=== PATIENT | male | born 1945 | race Caucasian/White ===

== ENCOUNTER → 2016-08-18 | Outpatient (CLI) | payer MEDICARE, BC ==
--- NOTE | 2016-08-18 12:27 | PN ---
DATE OF SERVICE: 08/18/2016 A 70-year-old gentleman who has been followed in the [facility] for treatment of obstructive sleep apnea-hypopnea syndrome. Patient is using his equipment every night for the whole night. No symptoms of excessive daytime sleepiness, [place] sleepiness scale is 4. Sometimes he may wake up in the middle of the night and may have difficulties to fall asleep again. I checked his CPAP unit. CPAP pressure is 7 cm of water. Usage is 100% of the time more than 4 hours, average usage is 8.2 hours, leak is 13 L/min, which is in acceptable range. Apnea-hypopnea index is 0.5, which is very good. No problem with the mask. No snoring with the machine. MEDICATIONS: Metoprolol, sotalol, Eliquis, atorvastatin, omeprazole. During physical exam, patient in no distress. BP 119/70, HR 69, RR 14, height 68-1/2 inches. Weight 183.2. BMI 27.4. Temperature 97.8. Oxygen saturation at room air 96%. OROPHARYNX: Low position of soft palate. EXTREMITIES: 1+ bilateral ankle edema. NECK: Supple. No JVD, Thyroid is not palpable. LUNGS: Clear to percussion and to auscultation. Good air exchange. No wheezing or rhonchi. HEART: S1, S2 regular. No murmurs, gallops, or rubs. ABDOMEN: Soft and nontender. Bowel sounds are present. No organomegaly appreciated. PLAN COORDINATOR: Awake, alert, and oriented x3. Cranial nerves 2 to 7 intact. There is no fasciculation or atrophy noted. No focal deficits observed. Weight is about the same range, last year was 181, past 2 days 183 pounds. IMPRESSION: 1. Obstructive sleep apnea-hypopnea syndrome on full control with CPAP at 7 cm of water. Patient demonstrated 100% compliance with treatment, benefiting from treatment. 2. History of paroxysmal atrial fibrillation, last episode 8 months ago. 3. Status post cardiac ablation procedure. 4. Status post permanent pacemaker insertion. 5. Acid reflux. 6. Hypertension. he scored that this will see the. PLAN: 1. Continue treatment with CPAP every night for the whole night. 2. Watching weight. 3. Sleep hygiene with regular time in bed for at least 8 hours. 4. No driving if feeling any sleepiness. 5. Prescription for all necessary CPAP supplies, including mask, tube, and filters. 6. Follow up visit in one year. Thank you very much for allowing me to participate in the management your patient. Sincerely, Alirio Wilson MD, PhD, FAASM Diplomat of [place] [employer], Sleep Medicine Board by [place] [employer] [employer] Registered Dental Assistant of [facility] [place]
== END | disposition home or self-care (01) ==
LOC: SLEEP 10:41
PROVIDERS: ATTEND Internal Medicine
DX: G47.33 Obstructive sleep apnea (adult) (pediatric) (principal); I48.0 Paroxysmal atrial fibrillation; Z95.0 Presence of cardiac pacemaker; K21.9 Gastro-esophageal reflux disease without esophagitis; I10 Essential (primary) hypertension; Z79.899 Other long term (current) drug therapy

== ENCOUNTER → 2016-09-19 | Outpatient (CLI) | payer MEDICARE, BC ==
[2016-09-19 12:53] LABS: CH 30.6; CHCM 35.1; HCT 43.2 % (39.0-53.0); MCH 30.4 pg (25.0-35.0); MCHC 34.7 g/dL (31.0-37.0); MCV 87.6 fL (80.0-100.0); Mean Platelet Volume 7.1; RBC 4.93 m/uL (4.30-5.90); RDW 13.6 % (11.5-15.5); WBC 6.7 k/uL (3.8-10.6)
[2016-09-19 13:03] LABS: AST 25 U/L (17-59); Anion Gap 10 mmol/L; Blood Urea Nitrogen 17 mg/dL (9-20); Calcium 9.7 mg/dL (8.4-10.2); Carbon Dioxide 26 mmol/L (22-30); Chloride 104 mmol/L (98-107); Cholesterol 133 mg/dL (<200); Creatine Kinase 120 U/L (55-170); Glucose 100 mg/dL (74-99); HDL Cholesterol 41 mg/dL (40-60); Non-African American GFR(MDRD) >60 (>60 ml/min/1.73 sqM); Sodium 140 mmol/L (137-145); Triglycerides 194 mg/dL (<150); Uric Acid 6.6 mg/dL (3.5-8.5)
[2016-09-22 17:11] LABS: Bile Acids, Total 6.8 umol/L (< 10.1)
== END ==
LOC: LABWHC1 11:58
DX: I10 Essential (primary) hypertension (principal); E78.4 Other hyperlipidemia; I25.10 Atherosclerotic heart disease of native coronary artery without angina pectoris
CPT/HCPCS: 36415; 80051; 80061; 82239; 82306; 82310; 82550; 82565; 82947; 83090; 83695; 84439; 84443; 84450; 84481; 84520; 84550; 85027; 86141

== ENCOUNTER → 2016-12-14 | Outpatient (CLI) | payer MEDICARE, BC ==
[2016-12-14 08:19] LABS: Blood Urea Nitrogen 18 mg/dL (9-20); Non-African American GFR(MDRD) >60 (>60 ml/min/1.73 sqM)
--- NOTE | 2016-12-14 09:12 | CT ---
EXAMINATION TYPE: CT abdomen pelvis w con DATE OF EXAM: 12/14/2016 COMPARISON: NONE HISTORY: Inguinal hernia CT DLP: 1510 mGycm CONTRAST: CT scan of the abdomen and pelvis is performed with Oral Contrast and with IV Contrast, patient injec jessenia with 100 ml mL of Omnipaque 300. FINDINGS: LUNG BASES-: No visible nodule. No infiltrate. Small fixed hiatal hernia. LIVER/GB: Small gallstones are noted. Lobulated cyst posterior segment right hepatic lobe S2 0.3 cm . Smaller subcentimeter cysts noted scattered throughout the liver. Hemangioma is noted in the left h epatic lobe lateral segment right centimeter mass. Biliary tree is of normal caliber. PANCREAS: No inflammation. No distinct mass. SPLEEN: No splenic enlargement. No lesion seen. ADRENALS: No nodule. No thickening. KIDNEYS/BLADDER: No hydronephrosis. No nephrolithiasis. Large exophytic cyst lower pole right kidn ey was 7.1 cm. Additional smaller cysts bilaterally. Urinary bladder grossly unremarkable. BOWEL: Normal appendix. Normal bowel caliber. No inflammation. Severe sigmoid diverticulosis withou t diverticulitis at this time. GENITAL ORGANS: No gross abnormality. LYMPH NODES: No greater than 1cm abdominal or pelvic lymph nodes are appreciated. AORTA: No significant abnormality. OSSEOUS STRUCTURES: Severe degenerative changes of the lumbar spine. OTHER: Small fat-containing inguinal hernias left greater than right. IMPRESSION: 1. Small fat-containing inguinal hernias left greater than right. 2. Renal and hepatic cysts. Hepatic hemangioma. 3. Small gallstones. 4. Small sliding-type hiatal hernia. 5. Severe sigmoid diverticulosis without diverticulitis.
== END | disposition home or self-care (01) ==
LOC: RADCTMAIN 07:19
PROVIDERS: ATTEND Surgery
DX: K40.90 Unilateral inguinal hernia, without obstruction or gangrene, not specified as recurrent (principal); N28.1 Cyst of kidney, acquired; K76.89 Other specified diseases of liver; K80.20 Calculus of gallbladder without cholecystitis without obstruction; D18.03 Hemangioma of intra-abdominal structures; K44.9 Diaphragmatic hernia without obstruction or gangrene; K57.30 Diverticulosis of large intestine without perforation or abscess without bleeding
CPT/HCPCS: 82565; 84520; 74177; 36415; Q9967

== ENCOUNTER → 2016-12-26 | Outpatient (CLI) | payer MEDICARE, BC ==
[2016-12-26 13:01] LABS: CH 30.6; CHCM 34.9; HCT 44.2 % (39.0-53.0); HDW 2.94; HGB 15.4 gm/dL (13.0-17.5); MCH 30.7 pg (25.0-35.0); MCHC 34.9 g/dL (31.0-37.0); Mean Platelet Volume 7.4; RBC 5.02 m/uL (4.30-5.90); RDW 13.6 % (11.5-15.5); WBC 6.8 k/uL (3.8-10.6)
[2016-12-26 13:05] LABS: AST 23 U/L (17-59); Anion Gap 12 mmol/L; Blood Urea Nitrogen 16 mg/dL (9-20); Carbon Dioxide 28 mmol/L (22-30); Chloride 103 mmol/L (98-107); Cholesterol 124 mg/dL (<200); Creatine Kinase 162 U/L (55-170); Glucose 98 mg/dL (74-99); HDL Cholesterol 38 mg/dL (40-60); Magnesium 1.4 mg/dL (1.6-2.3); Non-African American GFR(MDRD) >60 (>60 ml/min/1.73 sqM); Potassium 3.7 mmol/L (3.5-5.1); Sodium 143 mmol/L (137-145); Triglycerides 137 mg/dL (<150); Uric Acid 6.4 mg/dL (3.5-8.5)
[2016-12-26 22:17] LABS: Hemoglobin A1C 5.3 % (4.2-6.1)
[2016-12-27 09:17] LABS: Lipoprotein A 43 mg/dL (0-30)
== END | disposition home or self-care (01) ==
LOC: LABWHC1 11:49
DX: D64.9 Anemia, unspecified (principal); I25.10 Atherosclerotic heart disease of native coronary artery without angina pectoris; E11.9 Type 2 diabetes mellitus without complications; E78.2 Mixed hyperlipidemia; E05.90 Thyrotoxicosis, unspecified without thyrotoxic crisis or storm; E55.9 Vitamin D deficiency, unspecified
CPT/HCPCS: 36415; 80051; 80061; 82239; 82306; 82550; 82565; 82947; 83036; 83090; 83695; 83735; 83880; 84439; 84443; 84450; 84481; 84520; 84550; 85027; 86141

== ENCOUNTER → 2017-04-11 | Outpatient (CLI) | payer MEDICARE, BC ==
[2017-04-11 12:36] LABS: CH 29.9; CHCM 33.8; HCT 42.6 % (39.0-53.0); HDW 2.89; HGB 14.2 gm/dL (13.0-17.5); MCH 29.7 pg (25.0-35.0); MCHC 33.4 g/dL (31.0-37.0); Mean Platelet Volume 7.1; RBC 4.79 m/uL (4.30-5.90); RDW 13.8 % (11.5-15.5); WBC 6.8 k/uL (3.8-10.6)
[2017-04-11 13:10] LABS: AST 27 U/L (17-59); Anion Gap 9 mmol/L; Blood Urea Nitrogen 20 mg/dL (9-20); Carbon Dioxide 28 mmol/L (22-30); Chloride 102 mmol/L (98-107); Cholesterol 147 mg/dL (<200); Glucose 96 mg/dL (74-99); HDL Cholesterol 40 mg/dL (40-60); Magnesium 1.8 mg/dL (1.6-2.3); Non-African American GFR(MDRD) >60 (>60 ml/min/1.73 sqM); Potassium 4.3 mmol/L (3.5-5.1); Sodium 139 mmol/L (137-145); Uric Acid 6.7 mg/dL (3.5-8.5)
[2017-04-11 14:20] LABS: Hemoglobin A1C 5.5 % (4.2-6.1)
[2017-04-15 16:35] LABS: Bile Acids, Total 9.5 umol/L (< 10.1)
== END | disposition home or self-care (01) ==
LOC: LABWHC1 12:06
DX: D64.9 Anemia, unspecified (principal); E78.2 Mixed hyperlipidemia; E55.9 Vitamin D deficiency, unspecified; E11.9 Type 2 diabetes mellitus without complications; I10 Essential (primary) hypertension; I25.10 Atherosclerotic heart disease of native coronary artery without angina pectoris
CPT/HCPCS: 36415; 80051; 80061; 82239; 82306; 82565; 82947; 83036; 83090; 83695; 83735; 84439; 84443; 84450; 84481; 84520; 84550; 85027; 86141

== ENCOUNTER → 2017-08-15 | Outpatient (CLI) | payer MEDICARE, BC ==
[2017-08-15 11:39] LABS: HCT 45.4 % (39.0-53.0); HGB 15.1 gm/dL (13.0-17.5); MCHC 33.3 g/dL (31.0-37.0); MCV 87.3 fL (80.0-100.0); Mean Platelet Volume 6.9; Platelet Count 179 k/uL (150-450); RDW 13.7 % (11.5-15.5); WBC 7.1 k/uL (3.8-10.6)
[2017-08-15 11:43] LABS: AST 23 U/L (17-59); Anion Gap 9 mmol/L; Blood Urea Nitrogen 15 mg/dL (9-20); Carbon Dioxide 31 mmol/L (22-30); Chloride 102 mmol/L (98-107); Cholesterol 154 mg/dL (<200); Creatine Kinase 62 U/L (55-170); Glucose 105 mg/dL (74-99); HDL Cholesterol 40 mg/dL (40-60); Potassium 4.1 mmol/L (3.5-5.1); Sodium 142 mmol/L (137-145); Triglycerides 281 mg/dL (<150); Uric Acid 6.3 mg/dL (3.5-8.5)
[2017-08-15 11:58] LABS: T4, Free (Free Thyroxine) 0.84 ng/dL (0.78-2.19)
[2017-08-15 16:57] LABS: C Reactive Protein, High Sens 3.52 mg/L (0.000-3.000)
[2017-08-15 19:12] LABS: Hemoglobin A1C 5.6 % (4.0-6.0)
[2017-08-18 05:53] LABS: Lipoprotein A 31 mg/dL (0-30)
== END | disposition home or self-care (01) ==
LOC: LABWHC1 10:40
DX: E03.9 Hypothyroidism, unspecified (principal); E55.9 Vitamin D deficiency, unspecified; I10 Essential (primary) hypertension; E78.5 Hyperlipidemia, unspecified; E11.9 Type 2 diabetes mellitus without complications; D64.9 Anemia, unspecified; I48.91 Unspecified atrial fibrillation; I25.10 Atherosclerotic heart disease of native coronary artery without angina pectoris
CPT/HCPCS: 36415; 80051; 82239; 82306; 82465; 82550; 82565; 82947; 83036; 83090; 83695; 83718; 83721; 83735; 83880; 84439; 84443; 84450; 84478; 84481; 84520; 84550; 85027; 86141

== ENCOUNTER → 2017-11-22 | Outpatient (CLI) | payer MEDICARE, BC ==
[2017-11-22 10:12] LABS: Basophils # (A) 0.1 k/uL (0-0.2); Basophils % (A) 1 %; Eosinophils # (A) 0.1 k/uL (0-0.7); Eosinophils % (A) 2 %; HCT 46.5 % (39.0-53.0); HGB 15.6 gm/dL (13.0-17.5); Lymphocytes # (A) 1.8 k/uL (1.0-4.8); Lymphocytes % (A) 32 %; MCH 29.1 pg (25.0-35.0); MCHC 33.6 g/dL (31.0-37.0); MCV 86.6 fL (80.0-100.0); Mean Platelet Volume 7.3; Monocytes # (A) 0.5 k/uL (0-1.0); Monocytes % (A) 8 %; Neutrophils # (A) 3.2 k/uL (1.3-7.7); Neutrophils % (A) 55 %; Platelet Count 178 k/uL (150-450); RBC 5.37 m/uL (4.30-5.90); RDW 13.9 % (11.5-15.5); WBC 5.7 k/uL (3.8-10.6)
[2017-11-22 12:22] LABS: AST 37 U/L (17-59); Anion Gap 14 mmol/L; Blood Urea Nitrogen 18 mg/dL (9-20); Carbon Dioxide 27 mmol/L (22-30); Chloride 103 mmol/L (98-107); Cholesterol 131 mg/dL (<200); Creatine Kinase 131 U/L (55-170); Glucose 115 mg/dL (74-99); HDL Cholesterol 34 mg/dL (40-60); LDL Cholesterol,Calculated 55 mg/dL (0-99); Magnesium 1.9 mg/dL (1.6-2.3); Potassium 4.1 mmol/L (3.5-5.1); Sodium 144 mmol/L (137-145); Triglycerides 208 mg/dL (<150); Uric Acid 6.2 mg/dL (3.5-8.5)
[2017-11-22 12:36] LABS: T4, Free (Free Thyroxine) 1.01 ng/dL (0.78-2.19)
[2017-11-22 16:01] LABS: C Reactive Protein, High Sens 9.53 mg/L (0.000-3.000)
[2017-11-22 16:10] LABS: Vitamin D 25 Hydroxy 33.4 ng/mL (30.0-100.0)
[2017-11-22 17:32] LABS: Hemoglobin A1C 5.7 % (4.0-6.0)
[2017-11-24 05:15] LABS: Lipoprotein A 27 mg/dL (0-30)
== END | disposition home or self-care (01) ==
LOC: LABWHC1 09:37
DX: E55.9 Vitamin D deficiency, unspecified (principal); E03.9 Hypothyroidism, unspecified; I10 Essential (primary) hypertension; E78.2 Mixed hyperlipidemia; J44.9 Chronic obstructive pulmonary disease, unspecified; E11.9 Type 2 diabetes mellitus without complications; D64.9 Anemia, unspecified; I25.10 Atherosclerotic heart disease of native coronary artery without angina pectoris
CPT/HCPCS: 36415; 80051; 80061; 82239; 82306; 82550; 82565; 82947; 83036; 83090; 83695; 83735; 84439; 84443; 84450; 84481; 84520; 84550; 85025; 86141

== ENCOUNTER → 2017-12-14 | Outpatient (CLI) | payer MEDICARE, BC ==
--- NOTE | 2017-12-14 16:04 | PN ---
PROGRESS NOTE DATE OF SERVICE: 12/14/2017 A 72-year-old gentleman has been followed in [facility] for treatment of obstructive sleep apnea-hypopnea syndrome. The patient successfully continued to use his equipment every night for the whole night without any significant problems. [place] Sleepiness Scale today is 2. I checked his CPAP unit. CPAP pressure is 7 cm of water. Usage is 100% of the nights more than 4 hours. Average usage is 8.5 hours. Leak is 11 L/minute which is in normal range. Apnea-hypopnea index is only 0.9, which is perfect. No snoring with the machine. MEDICATIONS: Atorvastatin, losartan, hydrochlorothiazide, omeprazole, metoprolol, sotalol, Eliquis, Nitrostat, vitamin D3, magnesium supplement, some laxative. PHYSICAL EXAM: Patient in no distress. BP 95/60, HR 84, RR 16, height 5 feet 8 inches and 1 quarter, weight 179.8, BMI 27.0, temperature 97.6, oxygen saturation room air 94%. Oropharynx moderately low position of soft palate. Neck Supple, no JVD. Thyroid is not palpable. LUNGS Clear to percussion and to auscultation. Good air exchange. No wheezing or rhonchi. HEART S1, S2 regular. No murmurs, gallops, or rubs. ABDOMEN: Obese. Soft and nontender. Bowel sounds are present. No organomegaly appreciated. EXTREMITIES No clubbing or cyanosis. PEDIATRIC HOSPITALIST Awake, alert, and oriented X3. Cranial nerves 2 to 7 intact. There is no fasciculation or atrophy. noted. No focal deficits observed. IMPRESSION: 1. Obstructive sleep apnea-hypopnea syndrome, on full control with CPAP at 7 cm of water. Patient demonstrated 100% compliance with treatment benefitting from treatment. 2. Status post cardiac ablation procedure. 3. Acid reflux. 4. Status post permanent pacemaker insertion. 5. History of hypertension. 6. Coronary artery disease, status post 4 stents insertion. PLAN: 1. Continue treatment with CPAP every night for the whole night. 2. Prescription for all necessary CPAP supplies including mask, tube, filters. 3. Watching and losing weight. 4. Sleep hygiene with regular time in bed for at least 8 hours. 5. No driving if feeling sleepiness. 6. Prescription for all necessary CPAP supplies. 7. Followup visit in 1 year or earlier if patient has any problems. Thank you very much for allowing me to participate in management of your patient. Sincerely, Alirio Wilson MD, PhD, FAASM Diplomat of [place] [employer] [place] [employer] Lead Teacher of [facility] [place] JAYANT / ISAIAS: [id number] /
== END | disposition home or self-care (01) ==
LOC: SLEEP 13:30
PROVIDERS: ATTEND Internal Medicine
DX: G47.33 Obstructive sleep apnea (adult) (pediatric) (principal); K21.9 Gastro-esophageal reflux disease without esophagitis; Z95.0 Presence of cardiac pacemaker; Z95.5 Presence of coronary angioplasty implant and graft; Z98.890 Other specified postprocedural states; Z79.01 Long term (current) use of anticoagulants; Z79.899 Other long term (current) drug therapy

== ENCOUNTER → 2018-02-20 | Outpatient (CLI) | payer MEDICARE, BC ==
[2018-02-20 12:29] LABS: HCT 43.9 % (39.0-53.0); HGB 14.5 gm/dL (13.0-17.5); MCH 29.1 pg (25.0-35.0); Mean Platelet Volume 6.8; Platelet Count 192 k/uL (150-450); RBC 4.99 m/uL (4.30-5.90); RDW 13.9 % (11.5-15.5); WBC 6.5 k/uL (3.8-10.6)
[2018-02-20 12:36] LABS: AST 26 U/L (17-59); Anion Gap 6 mmol/L; Blood Urea Nitrogen 17 mg/dL (9-20); Carbon Dioxide 29 mmol/L (22-30); Chloride 104 mmol/L (98-107); Cholesterol 143 mg/dL (<200); Creatine Kinase 58 U/L (55-170); HDL Cholesterol 38 mg/dL (40-60); Magnesium 1.8 mg/dL (1.6-2.3); Sodium 139 mmol/L (137-145); Triglycerides 226 mg/dL (<150); Uric Acid 6.1 mg/dL (3.5-8.5)
[2018-02-20 12:52] LABS: T4, Free (Free Thyroxine) 0.87 ng/dL (0.78-2.19)
[2018-02-20 20:53] LABS: LDL Cholesterol, Direct 72.2 mg/dL (0.0-129.0)
[2018-02-20 20:58] LABS: Vitamin D 25 Hydroxy 35.6 ng/mL (30.0-100.0)
[2018-02-20 21:35] LABS: Hepatitis C IgG Antibody Non-Reactive (Non-Reactive)
== END | disposition home or self-care (01) ==
LOC: LABWHC1 11:23
DX: E78.2 Mixed hyperlipidemia (principal); E55.9 Vitamin D deficiency, unspecified; E03.9 Hypothyroidism, unspecified; D64.9 Anemia, unspecified; I25.10 Atherosclerotic heart disease of native coronary artery without angina pectoris; I48.91 Unspecified atrial fibrillation; I10 Essential (primary) hypertension
CPT/HCPCS: 36415; 80051; 80061; 82239; 82306; 82465; 82550; 82565; 83090; 83695; 83718; 83721; 83735; 84439; 84443; 84450; 84478; 84481; 84520; 84550; 85027; 86141; 86803

== ENCOUNTER → 2018-05-21 | Outpatient (CLI) | payer MEDICARE, BC ==
[2018-05-21 12:46] LABS: HCT 43.2 % (39.0-53.0); HGB 14.8 gm/dL (13.0-17.5); MCH 29.6 pg (25.0-35.0); MCHC 34.2 g/dL (31.0-37.0); MCV 86.7 fL (80.0-100.0); Mean Platelet Volume 7.3; Platelet Count 196 k/uL (150-450); RBC 4.99 m/uL (4.30-5.90); RDW 14.1 % (11.5-15.5); WBC 6.5 k/uL (3.8-10.6)
[2018-05-21 19:11] LABS: Anion Gap 6.5 mmol/L (4.00-12.00); Carbon Dioxide 30.5 mmol/L (21.6-31.8); Magnesium 1.8 mg/dL (1.5-2.4); Potassium 4.1 mmol/L (3.5-5.5); Uric Acid 7.3 mg/dL (3.7-8.7)
[2018-05-21 19:15] LABS: LDL Cholesterol, Direct 68.9 mg/dL (0.0-129.0)
[2018-05-21 19:19] LABS: T4, Free (Free Thyroxine) 1.1 ng/dL (0.80-1.80)
[2018-05-21 19:22] LABS: Vitamin D 25 Hydroxy 32.7 ng/mL (30.0-100.0)
[2018-05-21 20:47] LABS: Hepatitis C IgG Antibody Non-Reactive (Non-Reactive)
[2018-05-21 22:53] LABS: Hemoglobin A1C 5.5 % (4.0-6.0)
[2018-05-22 05:23] LABS: Lipoprotein A 36 mg/dL (0-30)
== END ==
LOC: LABWHC1 11:15
DX: E55.9 Vitamin D deficiency, unspecified (principal); E03.9 Hypothyroidism, unspecified; E78.2 Mixed hyperlipidemia; E11.9 Type 2 diabetes mellitus without complications; J44.9 Chronic obstructive pulmonary disease, unspecified; I25.10 Atherosclerotic heart disease of native coronary artery without angina pectoris; D64.9 Anemia, unspecified
CPT/HCPCS: 36415; 80051; 82239; 82306; 82465; 82550; 82565; 82947; 83036; 83090; 83695; 83718; 83721; 83735; 84439; 84443; 84450; 84478; 84481; 84520; 84550; 85027; 86141; 86803

== ENCOUNTER → 2018-09-25 | Outpatient (CLI) | payer MEDICARE, BC ==
[2018-09-25 18:51] LABS: Anion Gap 4.6 mmol/L (4.00-12.00); Carbon Dioxide 31.4 mmol/L (21.6-31.8); LDL Cholesterol,Calculated 66.4 mg/dL (0.0-131.0); Magnesium 1.9 mg/dL (1.5-2.4); Potassium 4.4 mmol/L (3.5-5.5); Uric Acid 5.7 mg/dL (3.7-8.7); VLDL Calculation 28.6 mg/dL (5.00-40.00)
[2018-09-25 19:28] LABS: Hepatitis C IgG Antibody Non-Reactive (Non-Reactive)
[2018-09-25 19:30] LABS: Folate, Serum 18.6 ng/mL
[2018-09-25 20:21] LABS: Vitamin D 25 Hydroxy 45.4 ng/mL (30.0-100.0)
[2018-09-25 21:42] LABS: Hemoglobin A1C 5.8 % (4.0-6.0)
== END | disposition home or self-care (01) ==
LOC: LABWHC1 11:10
DX: E78.2 Mixed hyperlipidemia (principal); E03.9 Hypothyroidism, unspecified; I10 Essential (primary) hypertension; E55.9 Vitamin D deficiency, unspecified; E11.9 Type 2 diabetes mellitus without complications; I25.10 Atherosclerotic heart disease of native coronary artery without angina pectoris; D64.9 Anemia, unspecified
CPT/HCPCS: 36415; 80051; 80061; 82239; 82306; 82550; 82565; 82610; 82746; 82947; 83036; 83090; 83695; 83735; 83880; 84439; 84443; 84450; 84481; 84520; 84550; 86141; 86803

== ENCOUNTER → 2019-01-02 | Outpatient (CLI) | payer MEDICARE, BC ==
--- NOTE | 2019-01-02 15:52 | PN ---
PROGRESS NOTE DATE OF SERVICE: 01/02/2019 This patient is a 73-year-old gentleman who has been followed in [facility] Center for treatment of obstructive sleep apnea-hypopnea syndrome. The patient successfully continues to use his CPAP equipment every night for the whole night without significant problems related to mask fitting, pressure or humidification. [place] Sleepiness Scale is 3 today. I checked his CPAP unit. Usage has been every night, 30/30 nights, for more than 4 hours. Average usage is 9 hours. Pressure is 7 cm of water. Leak is 5 L/minute, which is not significant. Apnea-hypopnea index is 2.4, which is totally normal. MEDICATIONS: 1. Losartan. 2. Atorvastatin. 3. Omeprazole. 4. Hydrochlorothiazide. 5. Metoprolol. 6. Sotalol. 7. Eliquis. 8. Nitrostat. 9. Vitamin D3. 10.Magnesium supplement. 11.Laxatives. PHYSICAL EXAMINATION: GENERAL: A pleasant gentleman without distress. VITAL SIGNS: BP 142/81, HR 78, RR 18, height 5 feet 8-1/4 inches, weight 181.6 pounds, which is about the same as last year. Body mass index 26.7, temperature 97.8, oxygen saturation at room air 96%. HEENT: PERRLA, EOMI. Evaluation of oropharynx showed tongue protrudes midline. Low position of soft palate. Mallampati III. NECK: Supple. No JVD. Thyroid is not palpable. LUNGS: Clear to percussion and to auscultation. Good air exchange. No wheezing or rhonchi. HEART: S1, S2 regular. No murmurs, gallops or rubs. ABDOMEN: Slightly obese. EXTREMITIES: No clubbing or cyanosis. NEONATAL DOCTOR: Awake, alert, and oriented X3. Cranial nerves 2 to 7 intact. There is no fasciculation or atrophy. noted. No focal deficits observed. IMPRESSION: 1. Obstructive sleep apnea-hypopnea syndrome. Patient demonstrated great compliance with treatment, benefitting from treatment. 2. Status post cardiac ablation procedure for history of atrial fibrillation in the past. 3. Acid reflux. 4. Status post permanent pacemaker insertion. 5. History of hypertension. 6. Coronary artery disease, status post 4 stent insertions. PLAN: 1. Patient will continue to use CPAP equipment every night. 2. Losing weight. 3. Sleep hygiene with regular time in bed for at least 8 hours. 4. Prescription for all necessary CPAP supplies, including mask, tube, filters. 5. No driving if feeling any sleepiness. 6. Follow-up visit in one year, or earlier if the patient has any problems. Thank you very much for allowing me to participate in the management of your patient. Sincerely, Alirio Wilson MD, PhD, FAASM Diplomat of [place] [employer] [place] [employer] Fisher Oyster of [facility] [place] MMODL / IJN: [id number] /
== END | disposition home or self-care (01) ==
LOC: SLEEP 13:26
PROVIDERS: ATTEND Internal Medicine
DX: G47.33 Obstructive sleep apnea (adult) (pediatric) (principal); K21.9 Gastro-esophageal reflux disease without esophagitis; I25.10 Atherosclerotic heart disease of native coronary artery without angina pectoris; I10 Essential (primary) hypertension; Z86.79 Personal history of other diseases of the circulatory system; Z95.0 Presence of cardiac pacemaker; Z95.5 Presence of coronary angioplasty implant and graft; Z98.890 Other specified postprocedural states; Z79.01 Long term (current) use of anticoagulants; Z79.899 Other long term (current) drug therapy

== ENCOUNTER → 2019-01-17 | Outpatient (CLI) | payer MEDICARE, BC ==
[2019-01-17 14:46] LABS: HCT 43.8 % (39.0-53.0); HGB 14.6 gm/dL (13.0-17.5); MCH 28.5 pg (25.0-35.0); MCHC 33.3 g/dL (31.0-37.0); MCV 85.6 fL (80.0-100.0); Mean Platelet Volume 7.2; Platelet Count 188 k/uL (150-450); RBC 5.12 m/uL (4.30-5.90); RDW 14.7 % (11.5-15.5); WBC 9.8 k/uL (3.8-10.6)
[2019-01-17 18:25] LABS: Urine Creatinine 148.4 mg/dL
[2019-01-17 19:20] LABS: Vitamin D 25 Hydroxy 55.9 ng/mL (30.0-100.0)
[2019-01-17 19:24] LABS: Magnesium 1.7 mg/dL (1.5-2.4); Potassium 3.9 mmol/L (3.5-5.5); Uric Acid 6.6 mg/dL (3.7-8.7)
[2019-01-17 19:32] LABS: C Reactive Protein, High Sens 7.36 mg/L (0.000-3.000)
[2019-01-17 19:47] LABS: T4, Free (Free Thyroxine) 0.9 ng/dL (0.80-1.80)
[2019-01-17 21:26] LABS: Hemoglobin A1C 5.8 % (4.0-6.0)
== END | disposition home or self-care (01) ==
LOC: LABWHC1 14:04
DX: I25.10 Atherosclerotic heart disease of native coronary artery without angina pectoris (principal); E11.9 Type 2 diabetes mellitus without complications; Z85.46 Personal history of malignant neoplasm of prostate; E55.9 Vitamin D deficiency, unspecified; I10 Essential (primary) hypertension; E78.49 Other hyperlipidemia
CPT/HCPCS: 36415; 80051; 82043; 82239; 82306; 82465; 82550; 82565; 82570; 82947; 83036; 83090; 83690; 83718; 83721; 83735; 84153; 84439; 84443; 84478; 84481; 84520; 84550; 85027; 86141

== ENCOUNTER → 2019-05-13 | Outpatient (CLI) | payer MEDICARE, BC ==
[2019-05-13 14:18] LABS: HCT 43.7 % (39.0-53.0); MCH 29.9 pg (25.0-35.0); MCHC 34.2 g/dL (31.0-37.0); MCV 87.5 fL (80.0-100.0); Mean Platelet Volume 6.3; Platelet Count 192 k/uL (150-450); RDW 13.5 % (11.5-15.5); WBC 6.2 k/uL (3.8-10.6)
[2019-05-13 18:53] LABS: Anion Gap 6.9 mmol/L (4.00-12.00); C Reactive Protein, High Sens 2.24 mg/L (0.000-3.000); Carbon Dioxide 30.1 mmol/L (21.6-31.8); Chol/HDL Ratio 3.68; LDL Cholesterol,Calculated 60.2 mg/dL (0.0-131.0); Magnesium 1.8 mg/dL (1.5-2.4); Potassium 4.3 mmol/L (3.5-5.5); Uric Acid 6.1 mg/dL (3.7-8.7); VLDL Calculation 30.8 mg/dL (5.00-40.00)
[2019-05-13 19:11] LABS: T4, Free (Free Thyroxine) 0.8 ng/dL (0.80-1.80)
[2019-05-13 19:24] LABS: Hemoglobin A1C 5.6 % (4.0-6.0)
[2019-05-14 15:15] LABS: Lipoprotein A 35 mg/dL (0-30)
== END | disposition home or self-care (01) ==
LOC: LABWHC1 12:34
DX: I25.10 Atherosclerotic heart disease of native coronary artery without angina pectoris (principal); D64.9 Anemia, unspecified; I48.91 Unspecified atrial fibrillation; E11.9 Type 2 diabetes mellitus without complications; E78.2 Mixed hyperlipidemia; I10 Essential (primary) hypertension; E03.9 Hypothyroidism, unspecified; E55.9 Vitamin D deficiency, unspecified
CPT/HCPCS: 36415; 80051; 80061; 82239; 82550; 82565; 82947; 83036; 83090; 83695; 83735; 84439; 84443; 84450; 84481; 84520; 84550; 85027; 86141

== ENCOUNTER → 2020-01-20 | Outpatient (CLI) | payer MEDICARE, BC ==
[2020-01-20 13:58] LABS: Appearance,Urine Clear (Clear); Bilirubin,Urine Negative (Negative); Blood,Urine Negative (Negative); Color,Urine Yellow; Glucose,Urine (UA) Negative (Negative); Ketones,Urine Negative (Negative); Leukocyte Esterase,Urine Negative (Negative); Nitrite,Urine Negative (Negative); PH, Urine 7.5 (5.0-8.0); Protein,Urine Trace (Negative); Specific Gravity,Urine 1.022 (1.001-1.035); Urobilinogen,Urine <2.0 mg/dL (<2.0)
[2020-01-20 14:01] LABS: Basophils # (A) 0.1 k/uL (0-0.2); Basophils % (A) 1 %; Eosinophils # (A) 0.1 k/uL (0-0.7); Eosinophils % (A) 2 %; HCT 44.4 % (39.0-53.0); HGB 14.5 gm/dL (13.0-17.5); Lymphocytes # (A) 2.3 k/uL (1.0-4.8); Lymphocytes % (A) 30 %; MCH 28.2 pg (25.0-35.0); MCHC 32.7 g/dL (31.0-37.0); MCV 86.5 fL (80.0-100.0); Mean Platelet Volume 7.5; Monocytes # (A) 0.6 k/uL (0-1.0); Monocytes % (A) 8 %; Neutrophils # (A) 4.4 k/uL (1.3-7.7); Neutrophils % (A) 57 %; Platelet Count 200 k/uL (150-450); RBC 5.13 m/uL (4.30-5.90); RDW 14.4 % (11.5-15.5); WBC 7.6 k/uL (3.8-10.6)
[2020-01-20 20:31] LABS: African American GFR (CKD) 96.5 (60.0-200.0); LDL Cholesterol,Calculated 60.2 mg/dL (0.0-131.0); Magnesium 1.8 mg/dL (1.5-2.4); Non-African American GFR(CKD) 83.3 (60.0-200.0); Uric Acid 6.6 mg/dL (3.7-8.7); VLDL Calculation 38.8 mg/dL (5.00-40.00)
[2020-01-21 10:38] LABS: Lipoprotein A 31 mg/dL (0-30)
== END | disposition home or self-care (01) ==
LOC: LABWHC1 13:15
DX: I25.10 Atherosclerotic heart disease of native coronary artery without angina pectoris (principal); E03.9 Hypothyroidism, unspecified; E55.9 Vitamin D deficiency, unspecified; I10 Essential (primary) hypertension; E78.2 Mixed hyperlipidemia; E11.9 Type 2 diabetes mellitus without complications; I48.91 Unspecified atrial fibrillation
CPT/HCPCS: 36415; 80061; 81003; 82043; 82239; 82306; 82550; 82565; 82570; 82947; 83090; 83695; 83735; 83880; 84439; 84443; 84460; 84480; 84520; 84550; 85025

== ENCOUNTER 2020-03-28 12:24 | Emergency (ER) | payer MEDICARE, BC ==
[2020-03-28 12:29] VITALS: RESP 16
[2020-03-28] MEDS ORDERED: ONDANSETRON 4 MG/2 ML VIAL IVP STA (12:59)
[2020-03-28] MEDS ORDERED: SODIUM CHLORIDE 0.9% 1,000 ML IV STA (12:59)
[2020-03-28] MEDS ORDERED: DIAZEPAM 5 MG/ML 2 ML INJ IVP STA (12:59)
--- NOTE | 2020-03-28 12:59 | ED ---
Dizziness HPI - General Chief Complaint: Dizziness Stated Complaint: nausea/dizziness Time Seen by Provider: 03/28/20 12:30 Source: patient Mode of arrival: wheelchair Limitations: no limitations - History of Present Illness Initial Comments: The patient is a 74-year-old male with past medical history of hypertension, hyperlipidemia and pacemaker who presents emergency room with complaint of dizziness and nausea. is at bedside and provides a history. States that he left the house approximately an hour and a half ago to work on clinical campaigning. States that he began having sudden onset that the room was spinning on him. Patient describes that he felt like he was on the propeller of an airplane. Reports that the symptoms were made worse any time he moved his head. He began having violent vomiting. No history of similar in the past. Patient did have multiple episodes of nonbilious emesis. Patient denies any chest pain or shortness of breath. No headaches. Denies any recent head trauma. Patient does take Eliquis. Denies any unilateral numbness or weakness. No other alleviating, precipitating or modifying factors - Related Data Home Medications Medication Instructions Recorded Confirmed Apixaban [Eliquis] 5 mg PO BID 03/23/16 03/24/16 Atorvastatin [Lipitor] 20 mg PO HS 03/23/16 03/24/16 Cholecalciferol [Vitamin D3] 2,000 unit PO DAILY 03/23/16 03/24/16 Fiber-Lax 625 mg PO BID 03/23/16 03/24/16 Losartan/Hydrochlorothiazide 1 each PO DAILY 03/23/16 03/24/16 [Losartan-Hctz 100-25 mg Tab] Metoprolol Succinate [Toprol XL] 100 mg PO DAILY 03/23/16 03/24/16 Nitroglycerin Sl Tabs [Nitrostat] 0.4 mg SUBLINGUAL Q5M PRN 03/23/16 03/24/16 Omeprazole [PriLOSEC] 20 mg PO AC-BID 03/23/16 03/24/16 Sotalol HCl [Betapace] 80 mg PO BID 03/23/16 03/24/16 Previous Rx's Medication Instructions Recorded HYDROcodone/APAP 5-325MG [Toney 1 tab PO Q4HR PRN #35 tab 03/24/16 5-325] Magnesium Hydroxide [Milk of 400 mg PO Q24H PRN #100 ml 03/24/16 Magnesia] Allergies Allergy/AdvReac Type Severity Reaction Status Date / Time No Known Allergies Allergy Verified 03/28/20 12:29 Review of Systems ROS Statement: Those systems with pertinent positive or pertinent negative responses have been documented in the HPI. ROS Other: All systems not noted in ROS Statement are negative. 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, and pre cancerous skin lesions History of Any Multi-Drug Resistant Organisms: None Reported Past Surgical History: Ablation, Heart Catheterization With Stent, Hernia Repair, Pacemaker Additional Past Surgical History / Comment(s): inguinal hernia Past Anesthesia/Blood Transfusion Reactions: No Reported Reaction Date of Last Stent Placement:: 2013 Type of Cardiac Device: Permanent Pacemaker Device Placement Date:: 2013 Past Psychological History: No Psychological Hx Reported Smoking Status: Never smoker Past Alcohol Use History: None Reported Past Drug Use History: None Reported - Past Family History Mother Family Medical History: Cancer Additional Family Medical History / Comment(s): breast and skin Sister(s) Family Medical History: Cancer Additional Family Medical History / Comment(s): breast Father Family Medical History: Cancer Additional Family Medical History / Comment(s): throat General Exam Limitations: no limitations Course Vital Signs 03/28/20 03/28/20 03/28/20 12:27 14:05 16:36 Temperature 98.0 F 98.1 F Pulse Rate 63 59 L 63 Respiratory 16 16 16 Rate Blood Pressure 138/82 119/65 149/79 O2 Sat by Pulse 96 98 98 Oximetry - Reevaluation(s) Reevaluation #1: 03/28/20 15:28 Reevaluation demonstrates that the patient's dizziness is almost entirely resolved EKG Findings - EKG Comments: EKG Findings:: EKG demonstrates atrial paced rhythm with a rate of 69. DC interval 198. QRS 82. QTC 462. Pacemaker captures properly. No acute ST segment elevation. Medical Decision Making - Medical Decision Making Upon arrival the patient is placed into room 7. A thorough history and physical exam was performed. Patient is violently retching in the exam room. Because of this we did place a IV the patient was given 5 mg of Valium as well as 4 mg of Zofran. A 12-lead EKG was performed. Laboratory says were conducted. She went for a CT of his brain. Laboratory studies are unremarkable. CT of the patient's brain demonstrates no acute intracranial abdomen only. CT angiography does demonstrate some carotid disease with 75% on the right and 60% on the left. The patient is reevaluated continues to have some nausea therefore he is given 10 mg of Reglan. I discussed diagnosis, differential and treatment options. After the Reglan and menstruation the patient does feel markedly improved. He is able to get up and ambulate without ataxia. I did discuss the diagnosis, differential treatment options. Patient feels comfortable going home at this time. I recommended that he follow-up with his primary care doctor in regards to his symptoms. He'll be given a prescription for Zofran at home. I also recommended taking meclizine for which the patient's daughter states she does have this medication at home. The patient has any new or worsening symptoms or reoccurrence of his symptoms he is to return to the emergency department. Patient was discharged home ambulatory in stable condition - Lab Data Result diagrams: 03/28/20 13:14 03/28/20 13:14 Lab Results 03/28/20 03/28/20 03/28/20 Range/Units 13:14 13:14 13:14 WBC 7.1 (3.8-10.6) k/uL RBC 4.96 (4.30-5.90) m/uL Hgb 15.0 (13.0-17.5) gm/dL Hct 43.3 (39.0-53.0) % MCV 87.2 (80.0-100.0) fL MCH 30.2 (25.0-35.0) pg MCHC 34.6 (31.0-37.0) g/dL RDW 14.4 (11.5-15.5) % Plt Count 218 (150-450) k/uL Neutrophils % 57 % Lymphocytes % 32 % Monocytes % 7 % Eosinophils % 2 % Basophils % 1 % Neutrophils # 4.0 (1.3-7.7) k/uL Lymphocytes # 2.2 (1.0-4.8) k/uL Monocytes # 0.5 (0-1.0) k/uL Eosinophils # 0.1 (0-0.7) k/uL Basophils # 0.1 (0-0.2) k/uL PT 11.1 (9.0-12.0) sec INR 1.1 (<1.2) Sodium 137 (137-145) mmol/L Potassium 3.7 (3.5-5.1) mmol/L Chloride 102 (98-107) mmol/L Carbon Dioxide 26 (22-30) mmol/L Anion Gap 9 mmol/L BUN 16 (9-20) mg/dL Creatinine 0.90 (0.66-1.25) mg/dL Est GFR (CKD-EPI)AfAm >90 (>60 ml/min/1.73 sqM) Est GFR (CKD-EPI)NonAf 83 (>60 ml/min/1.73 sqM) Glucose 143 H (74-99) mg/dL Calcium 9.8 (8.4-10.2) mg/dL Total Bilirubin 1.1 (0.2-1.3) mg/dL AST 32 (17-59) U/L ALT 22 (4-49) U/L Alkaline Phosphatase 92 (38-126) U/L Troponin I (0.000-0.034) ng/mL Total Protein 6.9 (6.3-8.2) g/dL Albumin 4.4 (3.5-5.0) g/dL 03/28/20 Range/Units 13:14 WBC (3.8-10.6) k/uL RBC (4.30-5.90) m/uL Hgb (13.0-17.5) gm/dL Hct (39.0-53.0) % MCV (80.0-100.0) fL MCH (25.0-35.0) pg MCHC (31.0-37.0) g/dL RDW (11.5-15.5) % Plt Count (150-450) k/uL Neutrophils % % Lymphocytes % % Monocytes % % Eosinophils % % Basophils % % Neutrophils # (1.3-7.7) k/uL Lymphocytes # (1.0-4.8) k/uL Monocytes # (0-1.0) k/uL Eosinophils # (0-0.7) k/uL Basophils # (0-0.2) k/uL PT (9.0-12.0) sec INR (<1.2) Sodium (137-145) mmol/L Potassium (3.5-5.1) mmol/L Chloride (98-107) mmol/L Carbon Dioxide (22-30) mmol/L Anion Gap mmol/L BUN (9-20) mg/dL Creatinine (0.66-1.25) mg/dL Est GFR (CKD-EPI)AfAm (>60 ml/min/1.73 sqM) Est GFR (CKD-EPI)NonAf (>60 ml/min/1.73 sqM) Glucose (74-99) mg/dL Calcium (8.4-10.2) mg/dL Total Bilirubin (0.2-1.3) mg/dL AST (17-59) U/L ALT (4-49) U/L Alkaline Phosphatase (38-126) U/L Troponin I <0.012 (0.000-0.034) ng/mL Total Protein (6.3-8.2) g/dL Albumin (3.5-5.0) g/dL Disposition Clinical Impression: Vertigo, Vomiting, Carotid artery disease Disposition: HOME SELF-CARE Condition: Stable Instructions (If sedation given, give patient instructions): Dizziness (ED) Additional Instructions: Please follow up with Dr. Otto within 2-4 days. You may take Meclizine 25 mg every 8 hours for your symptoms. Take the Zofran as directed. Return to the emergency room for any new or worsening symptoms. I recommend you have carotid dopplers performed. Is patient prescribed a controlled substance at d/c from ED?: No Referrals: Vikas Bonner MD [Primary Care Provider] - 1-2 days Time of Disposition: 16:21
[2020-03-28 13:31] LABS: INR 1.1 (<1.2); Prothrombin Time 11.1 sec (9.0-12.0)
[2020-03-28 13:33] LABS: ALT 22 U/L (4-49); AST 32 U/L (17-59); African American GFR (CKD) >90 (>60 ml/min/1.73 sqM); Albumin 4.4 g/dL (3.5-5.0); Alkaline Phosphatase 92 U/L (38-126); Anion Gap 9 mmol/L; Blood Urea Nitrogen 16 mg/dL (9-20); Calcium 9.8 mg/dL (8.4-10.2); Carbon Dioxide 26 mmol/L (22-30); Chloride 102 mmol/L (98-107); Glucose 143 mg/dL (74-99); Non-African American GFR(CKD) 83 (>60 ml/min/1.73 sqM); Potassium 3.7 mmol/L (3.5-5.1); Sodium 137 mmol/L (137-145); Total Bilirubin 1.1 mg/dL (0.2-1.3); Total Protein 6.9 g/dL (6.3-8.2)
[2020-03-28 13:41] LABS: Basophils # (A) 0.1 k/uL (0-0.2); Basophils % (A) 1 %; Eosinophils # (A) 0.1 k/uL (0-0.7); Eosinophils % (A) 2 %; HCT 43.3 % (39.0-53.0); Lymphocytes # (A) 2.2 k/uL (1.0-4.8); Lymphocytes % (A) 32 %; MCH 30.2 pg (25.0-35.0); MCHC 34.6 g/dL (31.0-37.0); MCV 87.2 fL (80.0-100.0); Mean Platelet Volume 7.8; Monocytes # (A) 0.5 k/uL (0-1.0); Monocytes % (A) 7 %; Neutrophils % (A) 57 %; Platelet Count 218 k/uL (150-450); RBC 4.96 m/uL (4.30-5.90); RDW 14.4 % (11.5-15.5); WBC 7.1 k/uL (3.8-10.6)
[2020-03-28] MEDS ORDERED: METOCLOPRAMIDE 5 MG/ML 2 ML VIAL IVP STA (13:53)
--- NOTE | 2020-03-28 15:20 | CT ---
EXAMINATION TYPE: CT brain wo con DATE OF EXAM: 03/28/2020 COMPARISON: None HISTORY: Dizziness and nausea CT DLP: 1126.8 mGycm Automated exposure control for dose reduction was used. There is cerebral cortical atrophy. There is no mass effect nor midline shift. There is no sign of in tracranial hemorrhage. The calvarium is intact. Skull base is intact. There is normal aeration of the mastoid sinuses. I see no bony destructive process. IMPRESSION: Cerebral atrophy. No acute intracranial abnormality.
--- NOTE | 2020-03-28 16:00 | CT ---
EXAMINATION TYPE: CT angio head neck DATE OF EXAM: 03/28/2020 COMPARISON: None HISTORY: Dizziness and nausea CT DLP: 452.9 mGycm Automated exposure control for dose reduction was used. CONTRAST: Performed with IV Contrast, patient injected with 65 mL of Isovue 370. Images were obtained from the aortic arch to the vertex of the brain with IV contrast and 3-D post pr ocessed images. There is normal branching pattern of the great vessels on the aortic arch. There is bilateral arteria l flow in the subclavian arteries. There is arterial flow in the common internal and external carotid arteries bilaterally. There is arterial flow in both vertebral arteries. There is significant plaque formation at the carotid artery bifurcations. There is estimated 75% stenosis at the origin of the r ight internal carotid artery. There is estimated 60% stenosis origin left internal carotid artery. Th ere is no evidence of carotid or vertebral artery aneurysm or dissection. There is arterial flow in the vertebrobasilar artery system. There is dural flow in the anterior midd le and posterior cerebral arteries. I see no evidence of intracranial arterial stenosis. There is no mass effect. There is no sign of aneurysm or neovascularity. There is normal contrast opacification o f the venous sinuses. IMPRESSION: No intracranial significant angiographic abnormality. Moderately severe bilateral stenosis at the carotid artery bifurcations and estimated 75% on the righ t side and more than 60% on the left side.
[2020-03-28] MEDS ORDERED: ONDANSETRON 4 MG ODT STARTER PACK 2 TAB BTL PO STA (16:19)
[2020-03-28 16:37] VITALS: BP 149/79; PULSE 63; TEMP 98.1
== END 2020-03-28 16:45 | disposition home or self-care (01) ==
LOC: EC 12:24
DX: R42 Dizziness and giddiness (principal); R11.2 Nausea with vomiting, unspecified; I10 Essential (primary) hypertension; K21.9 Gastro-esophageal reflux disease without esophagitis; G47.30 Sleep apnea, unspecified; E78.5 Hyperlipidemia, unspecified; Z79.01 Long term (current) use of anticoagulants; Z79.899 Other long term (current) drug therapy; Z99.89 Dependence on other enabling machines and devices
CPT/HCPCS: 36415; 93005; 80053; 84484; 85025; 85610; 70496; 70450; 70498; 99284; 96374; 96375 ×2; 96361; J2765; J3360; J2405; S0119; Q9967

== ENCOUNTER → 2020-04-15 | Outpatient (CLI) | payer MEDICARE, BC ==
--- NOTE | 2020-04-15 14:59 | US ---
EXAMINATION TYPE: US carotid duplex BILAT DATE OF EXAM: 04/15/2020 COMPARISON: NONE CLINICAL HISTORY: I65.29 occlusion and stenosis of unspecified. recent CTA showed stenosis, no h/o st roke, vertigo EXAM MEASUREMENTS: RIGHT: Peak Systolic Velocity (PSV) cm/sec ----- Right CCA: 87.5 ----- Right ICA: 79.7 ----- Right ECA: 115.6 ICA/CCA ratio: 0.9 RIGHT: End Diastole cm/sec ----- Right CCA: 25.6 ----- Right ICA: 27.3 ----- Right ECA: 22.4 LEFT: Peak Systolic Velocity (PSV) cm/sec ----- Left CCA: 107.5 ----- Left ICA: 186.6 ----- Left ECA: 260.6 ICA/CCA ratio: 1.7 LEFT: End Diastole cm/sec ----- Left CCA: 34.8 ----- Left ICA: 63.4 ----- Left ECA: 47.2 VERTEBRALS (direction of flow): Right Vertebral: Antegrade Left Vertebral: Antegrade Rhythm: Normal Extensive plaque seen but unable to obtain stenosis is found velocity that was seen on CT. IMPRESSION: 1. Extensive bilateral plaquing present. 2. Moderate stenosis between 50 and 69% due to plaquing within the left internal carotid artery. 3. No elevated velocity within the right internal carotid artery. However, visualization on this mohit ears to be a severe stenosis. Diminished velocity could indicate a severe stenosis to near occlusion. Criteria for Assigning % of Stenosis / Diameter reduction (Estimation based on the indirect measurements of the internal carotid artery velocities (ICA PSV). 1. Normal (no stenosis)=ICA PSV < 125 cm/s: ratio < 2.0: ICA EDV<40 cm/s. 2. Less than 50% stenosis=ICA PSV < 125 cm/s: ratio < 2.0: ICA EDV<40 cm/s. 3. 50 to 69% stenosis=ICA PSV of 125 to 230 cm/s: ration 2.0 ? 4.0: ICA EDV 40-100 cm/s. 4. Greater than 70% stenosis to near occlusion= ICA PSV > 230 cm/s: ratio > 4.0: ICA EDV > 100 cm/s. 5. Near occlusion= ICA PSV velocities may be low or undetectable: variable ratio and ICA EDV. 6. Total occlusion=unable to detect flow.
== END | disposition home or self-care (01) ==
LOC: RADUSWWP 12:52
PROVIDERS: ATTEND Family Medicine
DX: I25.10 Atherosclerotic heart disease of native coronary artery without angina pectoris (principal); I65.23 Occlusion and stenosis of bilateral carotid arteries
CPT/HCPCS: 93880

== ENCOUNTER → 2020-05-18 | Outpatient (CLI) | payer MEDICARE, BC ==
[2020-05-18 13:39] LABS: HCT 41.6 % (39.0-53.0); HGB 14.3 gm/dL (13.0-17.5); MCH 29.7 pg (25.0-35.0); MCHC 34.4 g/dL (31.0-37.0); MCV 86.4 fL (80.0-100.0); Mean Platelet Volume 7.4; Platelet Count 192 k/uL (150-450); RBC 4.81 m/uL (4.30-5.90); RDW 14.1 % (11.5-15.5); WBC 6.9 k/uL (3.8-10.6)
[2020-05-18 21:42] LABS: Hemoglobin A1C 5.5 % (4.0-6.0)
[2020-05-19 00:34] LABS: African American GFR (CKD) 101.3 (60.0-200.0); Anion Gap 8.4 mmol/L (4.00-12.00); C Reactive Protein, High Sens 3.93 mg/L (0.000-3.000); Carbon Dioxide 27.6 mmol/L (21.6-31.8); Chol/HDL Ratio 3.83; LDL Cholesterol,Calculated 73.6 mg/dL (0.0-131.0); Magnesium 1.9 mg/dL (1.5-2.4); Non-African American GFR(CKD) 87.4 (60.0-200.0); VLDL Calculation 28.4 mg/dL (5.00-40.00)
[2020-05-19 00:38] LABS: Uric Acid 6.6 mg/dL (3.7-8.7)
[2020-05-19 00:47] LABS: T4, Free (Free Thyroxine) 0.8 ng/dL (0.80-1.80)
[2020-05-19 11:46] LABS: Lipoprotein A 30 mg/dL (0-30)
== END | disposition home or self-care (01) ==
LOC: LABWHC1 12:14
DX: D64.9 Anemia, unspecified (principal); E11.9 Type 2 diabetes mellitus without complications; E78.2 Mixed hyperlipidemia; I10 Essential (primary) hypertension; E03.9 Hypothyroidism, unspecified; E55.9 Vitamin D deficiency, unspecified
CPT/HCPCS: 36415; 80051; 80061; 82239; 82306; 82550; 82565; 82947; 83036; 83090; 83695; 83735; 84439; 84443; 84450; 84481; 84520; 84550; 85027; 86141

== ENCOUNTER → 2020-07-02 | Outpatient (CLI) | payer MEDICARE, BC ==
--- NOTE | 2020-07-02 23:20 | SFUN ---
SLEEP CENTER FOLLOW UP NOTE DATE OF SERVICE: 07/02/2020 This patient is a 74-year-old gentleman who has been followed in the sleep center for treatment of obstructive sleep apnea-hypopnea syndrome. The patient continues to use CPAP equipment every night for the whole night. He does not have any significant problems related to mask fitting, pressure or humidification. No snoring with the machine. [place] Sleepiness Scale today is 1, which is perfect. I checked his CPAP unit. CPAP pressure is 7 cm of water. Usage is 30/30 nights for more than 4 hours. Average usage 8.5 hours per night. Leak is 6 L/minute, which is normal. Apnea-hypopnea index is only 0.5, which is perfect. MEDICATIONS: Losartan, atorvastatin, omeprazole, metoprolol, hydrochlorothiazide, sotalol, Eliquis, Nitrostat, vitamin D3, magnesium supplement, aspirin 81 mg once a day. PHYSICAL EXAMINATION: GENERAL: A pleasant patient in no distress. VITAL SIGNS: BP 139/80, HR 88, RR 15, height 5 feet 8 inches, weight 183, BMI 27.8, temperature 98.2, oxygen saturation at room air 96%. HEENT: PERRLA, EOMI. Evaluation of oropharynx showed tongue protrudes midline. Low position of soft palate. Mallampati III. NECK: Supple. No JVD. Thyroid is not palpable. LUNGS: Clear to percussion and to auscultation. Good air exchange. No wheezing or rhonchi. HEART: S1, S2 regular. No murmurs, gallops or rubs. ABDOMEN: Obese. EXTREMITIES: No clubbing or cyanosis. SUSPENDER MAKER: Awake, alert, and oriented X3. Cranial nerves 2 to 7 intact. There is no fasciculation or atrophy. noted. No focal deficits observed. IMPRESSION: 1. Obstructive sleep apnea-hypopnea syndrome. Patient demonstrated great compliance with treatment, benefitting from treatment. 2. History of atrial fibrillation, status post cardiac ablation. 3. Status post permanent pacemaker insertion. 4. Coronary artery disease, status post insertion of 4 stents. 5. Acid reflux. PLAN: 1. Patient will continue to use PAP equipment every night for the whole night. 2. Sleep hygiene with regular time in bed for at least 7-1/2 to 8 hours. 3. Precautions related to driving. No driving if feeling sleepiness. 4. I will maintain all necessary prescription for PAP supplies including mask, tube, filters. 5. Watching weight. 6. No driving if feeling sleepiness. 7. Follow-up visit in 6 months or earlier if patient has any problems. Thank you very much for allowing me to participate in the management of your patient. Sincerely, Alirio Wilson MD, PhD, FAASM Diplomat of [place] [employer] [place] [employer] Assistant Infant Teacher of [facility] [place] MMODL / ASHLIEN: [id number] /
== END | disposition home or self-care (01) ==

== ENCOUNTER → 2020-09-14 | Outpatient (CLI) | payer MEDICARE, BC ==
[2020-09-14 19:50] LABS: Basophils # (A) 0.05 X 10*3/uL (0.00-0.10); Basophils % (A) 0.7 %; Eosinophils # (A) 0.13 X 10*3/uL (0.04-0.35); Eosinophils % (A) 1.8 %; HCT 43.3 % (39.6-50.0); HGB 14.3 g/dL (13.0-17.0); Lymphocytes # (A) 2.35 X 10*3/uL (0.90-5.00); Lymphocytes % (A) 32.3 %; MCH 28.7 pg (27.0-32.0); MCV 86.9 fL (80.0-97.0); Mean Platelet Volume 10.9 fL (9.5-12.2); Monocytes # (A) 0.76 X 10*3/uL (0.20-1.00); Monocytes % (A) 10.4 %; Neutrophils # (A) 3.97 X 10*3/uL (1.80-7.70); Neutrophils % (A) 54.5 %; Platelet Count 192 X 10*3/uL (140-440); RBC 4.98 X 10*6/uL (4.40-5.60); RDW 14.1 % (11.5-14.5); WBC 7.28 X 10*3/uL (4.50-10.00)
[2020-09-14 20:25] LABS: African American GFR (CKD) 100.6 (60.0-200.0); Anion Gap 6.7 mmol/L (4.00-12.00); C Reactive Protein, High Sens 1.56 mg/L (0.000-3.000); Carbon Dioxide 27.3 mmol/L (21.6-31.8); Chol/HDL Ratio 3.64; LDL Cholesterol,Calculated 58.8 mg/dL (0.0-131.0); Magnesium 2.4 mg/dL (1.5-2.4); Non-African American GFR(CKD) 86.8 (60.0-200.0); Potassium 3.9 mmol/L (3.5-5.5); Uric Acid 6.7 mg/dL (3.7-8.7); VLDL Calculation 28.2 mg/dL (5.00-40.00)
[2020-09-14 21:28] LABS: Hemoglobin A1C 5.5 % (4.0-6.0)
== END | disposition home or self-care (01) ==
LOC: LABWHC1 14:50
DX: I10 Essential (primary) hypertension (principal); I25.10 Atherosclerotic heart disease of native coronary artery without angina pectoris; D64.9 Anemia, unspecified; E11.9 Type 2 diabetes mellitus without complications; E78.2 Mixed hyperlipidemia; E03.9 Hypothyroidism, unspecified; E55.9 Vitamin D deficiency, unspecified
CPT/HCPCS: 36415; 80051; 80061; 82239; 82306; 82550; 82565; 82947; 83036; 83090; 83690; 83735; 84439; 84443; 84450; 84460; 84480; 84520; 84550; 85025; 86141

== ENCOUNTER → 2021-01-18 | Outpatient (CLI) | payer MEDICARE, BC ==
[2021-01-18 19:12] LABS: HCT 44.5 % (39.6-50.0); HGB 14.3 g/dL (13.0-17.0); MCH 28.8 pg (27.0-32.0); MCHC 32.1 g/dL (32.0-37.0); MCV 89.7 fL (80.0-97.0); Mean Platelet Volume 10.9 fL (9.5-12.2); Platelet Count 215 X 10*3/uL (140-440); RBC 4.96 X 10*6/uL (4.40-5.60); RDW 14.4 % (11.5-14.5); WBC 7.08 X 10*3/uL (4.50-10.00)
[2021-01-18 20:18] LABS: African American GFR (CKD) 95.8 (60.0-200.0); Anion Gap 10.7 mmol/L (4.00-12.00); C Reactive Protein, High Sens 2.09 mg/L (0.000-3.000); Carbon Dioxide 27.3 mmol/L (21.6-31.8); LDL Cholesterol, Direct 60.4 mg/dL (0.0-129.0); Magnesium 1.9 mg/dL (1.5-2.4); Non-African American GFR(CKD) 82.7 (60.0-200.0)
[2021-01-18 20:25] LABS: T4, Free (Free Thyroxine) 0.9 ng/dL (0.80-1.80)
[2021-01-18 22:29] LABS: Hemoglobin A1C 5.6 % (4.0-6.0)
[2021-01-19 09:02] LABS: Lipoprotein A 44 mg/dL (0-30)
== END | disposition home or self-care (01) ==
LOC: LABWHC1 10:54
DX: E11.9 Type 2 diabetes mellitus without complications (principal); D64.9 Anemia, unspecified; I25.10 Atherosclerotic heart disease of native coronary artery without angina pectoris; E78.2 Mixed hyperlipidemia; E03.9 Hypothyroidism, unspecified
CPT/HCPCS: 36415; 80051; 82239; 82306; 82465; 82550; 82565; 82947; 83036; 83090; 83695; 83718; 83721; 83735; 84439; 84443; 84450; 84478; 84481; 84520; 84550; 85027; 86141

== ENCOUNTER → 2021-01-28 | Outpatient (CLI) | payer MEDICARE, BC ==
--- NOTE | 2021-01-29 09:48 | SFUN ---
SLEEP CENTER FOLLOW UP NOTE DATE OF SERVICE: 01/28/2021 This 75-year-old gentleman has been followed in Sleep Center for treatment of obstructive sleep apnea-hypopnea syndrome. The patient continues to use CPAP equipment every night for the whole night. No episodes of stopped breathing during sleep, according to his . No snoring. [place] Sleepiness Scale today is 3. No recent episodes of atrial fibrillation. I checked his CPAP unit. Pressure is 7 cm of water. Usage is 100% of nights for more than 4 hours with average 8.8 hours per night. Leak is 10 L/minute, which is borderline. Apnea-hypopnea index is only 0.8, which is perfect. MEDICATIONS: 1. Prasugrel 10 mg once a day. 2. Atorvastatin 80 mg once a day. 3. Losartan/hydrochlorothiazide 100/25 mg once a day. 4. Omeprazole 20 mg twice a day. 5. Metoprolol 100 mg once a day. 6. Sotalol 80 mg twice a day. 7. Eliquis 5 mg twice a day. 8. Nitrostat 0.4 mg as needed. 9. Magnesium, vitamin D3, fiber supplements. PHYSICAL EXAMINATION: GENERAL: A pleasant patient without any distress. VITAL SIGNS: BP 119/68, HR 80, RR 15, height 5 feet 8 inches, weight 180, BMI 27.3, oxygen saturation at room air 96%. HEENT: PERRLA, EOMI, evaluation of oropharynx showed tongue protrudes midline. Low position of soft palate. Mallampati III. NECK: Supple, no JVD. Thyroid is not palpable. LUNGS: Clear to percussion and to auscultation. Good air exchange. No wheezing or rhonchi. HEART: S1, S2 regular. No murmurs, gallops, or rubs. ABDOMEN: Soft and nontender. Bowel sounds are present. No organomegaly appreciated. EXTREMITIES: No clubbing or cyanosis. WIRELESS TELEGRAPHER: Awake, alert, and oriented X3. Cranial nerves 2 to 7 intact. There is no fasciculation or atrophy. noted. No focal deficits observed. IMPRESSION: 1. Obstructive sleep apnea-hypopnea syndrome. Patient demonstrated 100% compliance with treatment, benefitting from treatment. 2. History of atrial fibrillation, status post cardiac ablation. No recent episodes of atrial fibrillation. 3. Status post permanent pacemaker insertion for coronary artery disease, status post 4 stent insertions. 4. Acid reflux. 5. Hypertension. PLAN: 1. Patient will continue to use PAP equipment every night for the whole night. 2. Sleep hygiene with regular time in bed for at least 7-1/2 to 8 hours. 3. Precautions related to driving. No driving if feeling sleepiness. 4. I will maintain all necessary prescription for PAP supplies including mask, tube, filters. 5. Watching weight. 6. Follow-up visit in 6 months or earlier if patient has any problems. Thank you very much for allowing me to participate in the management of your patient. Sincerely, Alirio Wilson MD, PhD, FAASM Diplomat of [place] [employer] Sleep Medicine Board of [place] [employer] Ophthalmic Technician of [facility] [place] MMSHANNAN / ASHLIEN: [id number] /
== END ==
LOC: SLEEP 13:21
PROVIDERS: ATTEND Internal Medicine
DX: G47.33 Obstructive sleep apnea (adult) (pediatric) (principal); I48.91 Unspecified atrial fibrillation; K21.9 Gastro-esophageal reflux disease without esophagitis; I10 Essential (primary) hypertension; I25.10 Atherosclerotic heart disease of native coronary artery without angina pectoris; Z95.5 Presence of coronary angioplasty implant and graft; Z79.899 Other long term (current) drug therapy; Z99.89 Dependence on other enabling machines and devices

== ENCOUNTER → 2021-04-02 | Outpatient (CLI) | payer MEDICARE, BC ==
[2021-04-02 15:24] LABS: HCT 27.8 % (39.6-50.0); MCH 30.9 pg (27.0-32.0); MCHC 32.4 g/dL (32.0-37.0); MCV 95.5 fL (80.0-97.0); Mean Platelet Volume 11.4 fL (9.5-12.2); Platelet Count 243 X 10*3/uL (140-440); RBC 2.91 X 10*6/uL (4.40-5.60); RDW 17.1 % (11.5-14.5); WBC 7.72 X 10*3/uL (4.50-10.00)
== END | disposition home or self-care (01) ==
LOC: LABWHC1 09:17
PROVIDERS: ATTEND Physical Medicine & Rehabilitation
DX: K92.2 Gastrointestinal hemorrhage, unspecified (principal)
CPT/HCPCS: 36415; 83036; 85027

== ENCOUNTER → 2021-04-23 | Outpatient (CLI) | payer MEDICARE, BC ==
[2021-04-24 00:12] LABS: HGB 12.6 g/dL (13.0-17.0); MCH 29.4 pg (27.0-32.0); MCHC 30.7 g/dL (32.0-37.0); MCV 95.8 fL (80.0-97.0); Mean Platelet Volume 11.7 fL (9.5-12.2); Platelet Count 210 X 10*3/uL (140-440); RBC 4.28 X 10*6/uL (4.40-5.60); RDW 15.4 % (11.5-14.5); WBC 5.55 X 10*3/uL (4.50-10.00)
== END | disposition home or self-care (01) ==
LOC: LABWHC1 14:03
DX: D64.9 Anemia, unspecified (principal)
CPT/HCPCS: 36415; 82728; 83540; 85027

== ENCOUNTER → 2021-05-11 | Outpatient (CLI) | payer MEDICARE, BC ==
[2021-05-11 23:09] LABS: HCT 44.9 % (39.6-50.0); MCH 29.4 pg (27.0-32.0); MCHC 31.2 g/dL (32.0-37.0); MCV 94.3 fL (80.0-97.0); Mean Platelet Volume 11.4 fL (9.5-12.2); Platelet Count 207 X 10*3/uL (140-440); RBC 4.76 X 10*6/uL (4.40-5.60); RDW 13.5 % (11.5-14.5); WBC 6.21 X 10*3/uL (4.50-10.00)
[2021-05-12 00:20] LABS: Ferritin 48.4 ng/mL (22.0-322.0)
== END | disposition home or self-care (01) ==
LOC: LABWHC1 13:29
DX: D64.9 Anemia, unspecified (principal)
CPT/HCPCS: 36415; 82728; 83540; 85027

== ENCOUNTER → 2021-07-22 | Outpatient (CLI) | payer MEDICARE, BC ==
[2021-07-22 19:39] LABS: HCT 44.4 % (39.6-50.0); HGB 14.4 g/dL (13.0-17.0); MCH 28.1 pg (27.0-32.0); MCHC 32.4 g/dL (32.0-37.0); MCV 86.7 fL (80.0-97.0); Mean Platelet Volume 11.2 fL (9.5-12.2); Platelet Count 198 X 10*3/uL (140-440); RBC 5.12 X 10*6/uL (4.40-5.60); RDW 13.5 % (11.5-14.5); WBC 7.45 X 10*3/uL (4.50-10.00)
[2021-07-22 20:24] LABS: African American GFR (CKD) 98.6 (60.0-200.0); Blood Urea Nitrogen 13.9 mg/dL (9.0-27.0); Carbon Dioxide 23.2 mmol/L (20.0-27.5); Chloride 101 mmol/L (96-109); Non-African American GFR(CKD) 85.1 (60.0-200.0); Potassium 4.1 mmol/L (3.5-5.5); Sodium 138 mmol/L (135-145); Uric Acid 5.8 mg/dL (3.7-8.7)
[2021-07-22 20:59] LABS: AST 26 U/L (14-35); Creatine Kinase 98 U/L (35-257); LDL Cholesterol,Calculated 67.1 mg/dL (0.0-131.0)
== END | disposition home or self-care (01) ==
LOC: LABWHC1 13:11
DX: I10 Essential (primary) hypertension (principal); I25.10 Atherosclerotic heart disease of native coronary artery without angina pectoris; I48.91 Unspecified atrial fibrillation; D64.9 Anemia, unspecified; E11.9 Type 2 diabetes mellitus without complications; E03.9 Hypothyroidism, unspecified; E55.9 Vitamin D deficiency, unspecified
CPT/HCPCS: 36415; 80051; 80061; 82239; 82306; 82550; 82565; 83090; 83695; 83735; 83880; 84439; 84443; 84450; 84481; 84520; 84550; 85027; 86141

== ENCOUNTER → 2021-10-13 | Outpatient (CLI) | payer MEDICARE, BC ==
--- NOTE | 2021-10-13 20:01 | SFUN ---
SLEEP CENTER FOLLOW UP NOTE DATE OF SERVICE: 10/13/2021 This 76-year-old gentleman has been followed in Sleep Center for treatment of obstructive sleep apnea-hypopnea syndrome. The patient continues to use his CPAP equipment every night and is getting his CPAP supplies on time. No snoring with the machine. CPAP pressure is 7 cm of water. Usage is 30/30 nights, average usage 9.1 hours per night. Leak is 10 L/minute. Apnea-hypopnea index is only 0.7, which is absolutely perfect. [place] Sleepiness Scale today is zero. The patient's machine has a sign about exceeding motor life, but the machine works well; no noise. Apnea-hypopnea index reading is normal. MEDICATIONS: 1. Atorvastatin mg once a day. 2. Losartan/hydrochlorothiazide 100/25 mg once a day. 3. Omeprazole 20 mg twice a day. 4. Metoprolol 100 mg once a day. 5. Sotalol 80 mg twice a day. 6. Eliquis 5 mg twice a day. 7. Nitrostat 0.4 mg as needed. 8. Fiber laxative mg twice a day. PHYSICAL EXAMINATION: GENERAL: Pleasant patient in no distress. VITAL SIGNS: BP 123/76, HR 77, RR 16, weight 186.6 pounds, temperature 97.0, oxygen saturation at room air 97%. Height 5 feet 8 inches. HEENT: PERRLA, EOMI, evaluation of oropharynx showed tongue protrudes midline. Low position of soft palate; Mallampati III. NECK: Supple, no JVD. Thyroid is not palpable. LUNGS: Clear to percussion and to auscultation. Good air exchange. No wheezing or rhonchi. HEART: S1, S2 regular. No murmurs, gallops, or rubs. ABDOMEN: Soft and nontender. Bowel sounds are present. No organomegaly appreciated. EXTREMITIES: No clubbing or cyanosis. INSTRUMENTATION AND CONTROLS TECHNICIAN: Awake, alert, and oriented X3. Cranial nerves 2 to 7 intact. There is no fasciculation or atrophy. noted. No focal deficits observed. IMPRESSION: 1. Obstructive sleep apnea-hypopnea syndrome. Patient demonstrated great compliance with treatment, benefitting from treatment. 2. History of atrial fibrillation, status post cardiac ablation; no recent episodes of cardiac arrhythmias. 3. Status post permanent pacemaker insertion. 4. Coronary artery disease, status post 4 stent insertions. 5. Acid reflux. 6. Hypertension. PLAN: 1. Patient will continue to use PAP equipment every night for the whole night. 2. Sleep hygiene with regular time in bed for at least 7-1/2 to 8 hours. 3. Precautions related to driving. No driving if feeling sleepiness. 4. I will maintain all necessary prescription for PAP supplies including mask, tube, filters. 5. Watching weight. 6. If he has any problems with the CPAP unit, the patient will call us and we will replace the unit. 7. Follow-up visit in 6 months, or earlier if patient has any problems. Thank you very much for allowing me to participate in the management of your patient. Sincerely, Alirio Wilson MD, PhD, FAASM Diplomat of [place] [employer] Sleep Medicine Board of [place] [employer] Internal Medicine Subsurface Augmentee Elint Operator of [facility] [place] MMSHANNAN / ISAIAS: [id number] /
== END ==
LOC: SLEEP 13:44
PROVIDERS: ATTEND Internal Medicine
DX: G47.33 Obstructive sleep apnea (adult) (pediatric) (principal); I48.91 Unspecified atrial fibrillation; I25.10 Atherosclerotic heart disease of native coronary artery without angina pectoris; K21.9 Gastro-esophageal reflux disease without esophagitis; I10 Essential (primary) hypertension; Z95.0 Presence of cardiac pacemaker; Z95.5 Presence of coronary angioplasty implant and graft; Z99.89 Dependence on other enabling machines and devices; Z79.01 Long term (current) use of anticoagulants; Z87.891 Personal history of nicotine dependence

== ENCOUNTER → 2022-05-05 | Outpatient (CLI) | payer MEDICARE, BC ==
--- NOTE | 2022-05-05 16:52 | P.PN ---
Subjective DATE: 05/05/2022 FOLLOW UP VISIT. Patient with obstructive sleep apnea hypopnea syndrome return to sleep center for follow-up visit. Information from previous visit have been reviewed. Patient is using PAP equipment every night for the whole night, getting PAP supplies in time. The patient does not have significant problems with the mask, PAP unit and humidification. [place] sleepiness scale is 3, which is normal. I checked information from PAP unit. PAP unit pressure 8 cm H2O. Usage is 100 % for more then 4 hours, average 8.5 hours per night. Leak is 25 l/m, which is in acceptable range. Apnea Hypopnea Index is 0.9, which is normal. MEDICATIONS:1. Atorvastatin 100 mg once a day 2. Metoprolol 100 mg once a day 3. Losartan/hydrochlorothiazide 100/25 mg once a day 4 Omeprazole 20 mg twice a day] 5 Sotalol 80 mg twice a day] 6 Eliquis 5 mg twice a day] 7 Nitrostat as needed] During physical exam: GENERAL: A pleasant patient without any distress. VITAL SIGNS: BP114/71], HR76], RR 20] , weigh 185.2], atjgikekkoq85.9], oxygen saturation at room ai 96 ]% . HEENT: PERRLA, EOMI.low position of soft palate, Mallapat 3] . NECK: Supple. No JVD. LUNGS: Clear to percussion and to auscultation. Good air exchange. No wheezing or rhonchi. HEART: S1, S2 regular. ABDOMEN: Soft and nontender.[] EXTREMITIES: No clubbing or cyanosis. PALLET STONE INSERTER: Awake, alert, and oriented x3. No focal deficit. Impressions: 1. Obstructive sleep apnea-hypopnea syndrome. Patient demonstrated great compliance with treatment, benefiting from treatment. 2. Coronary artery disease status post 4 stent insertion]. 3. History of lateral fibrillation, status post cardiac ablation, no recent episodes]. 4. Status post permanent pacemaker insertion]. 5. Hypertension]. 6. Acid reflux]. Plan: 1. Continue using PAP equipment every night for the whole night. 2. To change air filter at least 1-2 times per month. 3. PAP unit should stay lower then position of the head. 4. Advised patient to remove all remaining water from humidifier canister daily and make it dry after each usage. Refill canister with fresh distilled water before each usage. 5. Sleep hygiene with regular time in bed for at least 8 hours. 6. Precautions related to driving. No driving if feel any sleepiness. 7. I will maintain prescription for PAP supplies including mask, tube, filters. 8. Follow up visit in 6 months or earlier if patient has any problems. 9. Watching weight. Thank you very much for allowing me to participate in the management of your patient. Alirio Wilson MD, PhD, FAASM. Diplomat of [place] [employer], Sleep Medicine Board by [place] [employer] Medicine Medical Records Coordinator of [facility] [place]
== END ==
LOC: SLEEP 14:48
PROVIDERS: ATTEND Internal Medicine
DX: G47.33 Obstructive sleep apnea (adult) (pediatric) (principal); Z99.89 Dependence on other enabling machines and devices; I10 Essential (primary) hypertension; K21.9 Gastro-esophageal reflux disease without esophagitis; Z95.5 Presence of coronary angioplasty implant and graft; Z95.0 Presence of cardiac pacemaker; I97.190 Other postprocedural cardiac functional disturbances following cardiac surgery; Z87.891 Personal history of nicotine dependence
CPT/HCPCS: 99212

== ENCOUNTER → 2022-11-10 | Outpatient (CLI) | payer MEDICARE, BC ==
--- NOTE | 2022-11-10 14:07 | P.PN ---
Subjective DATE: 11/10/2022 FOLLOW UP VISIT. Patient with obstructive sleep apnea hypopnea syndrome return to sleep center for follow-up visit. Information from previous visit have been reviewed. Patient is using PAP equipment every night for the whole night, getting PAP supplies in time. The patient does not have significant problems with the mask, PAP unit and humidification. [place] sleepiness scale is 1, which is perfect. I checked information from PAP unit. PAP unit pressure 8 cm H2O. Usage is 100 % for more then 4 hours, average 9.1 hours per night. Leak is 30 l/m, which is slightly higher than during previous visit when it was 25 l/min. Apnea Hypopnea Index is 5.1, which is borderline, but significantly higher than during previous visit when it was 0.9. MEDICATIONS:1. Atorvastatin 80 mg once a day 2. Valsartan/hydrochlorothiazide 320-25 mg once a day 3. Omeprazole 20 mg twice a day 4. Metoprolol 100 mg once a day 5. Sotalol 80 mg twice a day 6. Eliquis 5 mg twice a day 7. Nitrostat During physical exam: GENERAL: A pleasant patient without any distress. VITAL SIGNS: BP 164/85, HR 80, RR 16 , weight 184.6, temperature 98.1, oxygen saturation at room air 98 % . HEENT: PERRLA, EOMI.low position of soft palate, Mallapati 3 . NECK: Supple. No JVD. LUNGS: Clear to percussion and to auscultation. Good air exchange. No wheezing or rhonchi. HEART: S1, S2 regular. ABDOMEN: Soft and nontender.[] EXTREMITIES: No clubbing or cyanosis. PAINTER SUPERVISOR: Awake, alert, and oriented x3. No focal deficit. Impressions: 1. Obstructive sleep apnea-hypopnea syndrome. Patient demonstrated great compliance with treatment, benefiting from treatment. 2. Coronary artery disease, status post 4 stents insertion. 3. History of atrial fibrillation, status post cardiac ablation, no recent episodes. 4. Status post permanent pacemaker insertion. 5. Hypertension. 6. Acid reflux. Plan: 1. Continue using PAP equipment every night for the whole night. 2. To change air filter at least 1-2 times per month. 3. PAP unit should stay lower then position of the head. 4. Advised patient to remove all remaining water from humidifier canister daily and make it dry after each usage. Refill canister with fresh distilled water before each usage. 5. Sleep hygiene with regular time in bed for at least 8 hours. 6. Precautions related to driving. No driving if feel any sleepiness. 7. I will maintain prescription for PAP supplies including mask, tube, filters. 8. Watching weight. 9. Follow up visit in 6 months or earlier if patient has any problems. Thank you very much for allowing me to participate in the management of your patient. Alirio Wilson MD, PhD, FAASM. Diplomat of [place] [employer] Medicine, Sleep Medicine Board by [place] [employer] Holistic Nutritionist of [facility] [place]
== END ==
LOC: SLEEP 13:40
PROVIDERS: ATTEND Internal Medicine
DX: G47.33 Obstructive sleep apnea (adult) (pediatric) (principal); I25.10 Atherosclerotic heart disease of native coronary artery without angina pectoris; I48.91 Unspecified atrial fibrillation; Z95.0 Presence of cardiac pacemaker; I10 Essential (primary) hypertension; K21.9 Gastro-esophageal reflux disease without esophagitis; Z79.01 Long term (current) use of anticoagulants; Z79.899 Other long term (current) drug therapy; Z95.5 Presence of coronary angioplasty implant and graft; Z99.89 Dependence on other enabling machines and devices; Z87.891 Personal history of nicotine dependence
CPT/HCPCS: 99212

== ENCOUNTER → 2023-01-17 | Outpatient (CLI) | payer MEDICARE, BC ==
[2023-01-17 11:21] LABS: Partial Thromboplastin Time 27.2 sec (22.0-30.0)
[2023-01-17 15:54] LABS: Basophils # (A) 0.06 X 10*3/uL (0.00-0.10); Basophils % (A) 0.8 %; Eosinophils # (A) 0.14 X 10*3/uL (0.04-0.35); Eosinophils % (A) 1.9 %; HCT 42.7 % (39.6-50.0); HGB 14.4 d/dL (13.0-17.0); Lymphocytes # (A) 1.73 X 10*3/uL (0.90-5.00); Lymphocytes % (A) 23.9 %; MCH 29.4 pg (27.0-32.0); MCHC 33.7 d/dL (32.0-37.0); MCV 87.3 FL (80.0-97.0); Mean Platelet Volume 11.1 FL (9.5-12.2); Monocytes # (A) 0.73 X 10*3/uL (0.20-1.00); Monocytes % (A) 10.1 %; NRBC Per 100 WBC 0 X 10*3/uL (0.00-0.01); Neutrophils # (A) 4.57 X 10*3/uL (1.80-7.70); Platelet Count 203 X 10*3/uL (140-440); RBC 4.89 X 10*6/uL (4.40-5.60); RDW 14.6 % (11.5-14.5); WBC 7.25 X 10*3/uL (4.50-10.00)
[2023-01-17 16:08] LABS: ALT 24 U/L (10-49); AST 25 U/L (14-35); Albumin 4.6 d/dL (3.8-4.9); Albumin/Globulin Ratio 2.19 Ratio (1.60-3.17); Alkaline Phosphatase 100 U/L (41-126); Blood Urea Nitrogen 22.9 mg/dL (9.0-27.0); Calcium 9.5 mg/dL (8.7-10.3); Carbon Dioxide 26.2 mmol/L (21.6-31.8); Chloride 102 mmol/L (96-109); Globulin 2.1 d/dL (1.6-3.3); Glucose 110 mg/dL (70-110); Potassium 4.4 mmol/L (3.5-5.5); Sodium 139 mmol/L (135-145); Total Bilirubin 0.6 mg/dL (0.3-1.2); Total Protein 6.7 d/dL (6.2-8.2)
[2023-01-17 17:15] LABS: Appearance,Urine Clear (Clear); Bilirubin,Urine Negative (Negative); Blood,Urine Negative (Negative); Color,Urine Yellow (Yellow); Ketones,Urine Negative (Negative); Nitrite,Urine Negative (Negative); Specific Gravity,Urine 1.017 (1.001-1.030); Urobilinogen,Urine 0.2 E.U./DL
[2023-01-17 17:19] LABS: Bacteria,Urine None Seen (None Seen)
== END | disposition home or self-care (01) ==
LOC: LABPAT 10:36
PROVIDERS: ATTEND Orthopaedic Surgery
DX: Z01.812 Encounter for preprocedural laboratory examination (principal)
CPT/HCPCS: 80053; 81001; 85025; 85610; 85730; 87070

== ENCOUNTER 2023-01-23 10:53 | Day surgery (SDC) | payer MEDICARE, BC ==
[~2023-01-23 10:53] MED LIST: ACETAMINOPHEN TAB 500 MG TAB PO PRN; MELOXICAM 7.5 MG TAB PO PRN; MIDAZOLAM 2 MG/2 ML VIAL IV PRN; ONDANSETRON 4 MG/2 ML VIAL IVP PRN; TRANEXAMIC 1,000 MG/100ML-NACL 1,000 MG in SALINE 1 100ML.BAG IVPB PRN
[2023-01-23] MEDS: LACTATED RINGERS 1,000 ML IV SCH ×2 (11:51→17:04)
[2023-01-23] MEDS ORDERED: MIDAZOLAM 2 MG/2 ML VIAL IVP ONE (12:02)
[2023-01-23] MEDS ORDERED: fentaNYL (PF) 50 MCG/ML 2 ML AMP IVP ONE (12:06)
[2023-01-23] MEDS ORDERED: ePHEDrine 50 MG/ML 1 ML VIAL ONE (12:21)
[2023-01-23] MEDS ORDERED: LIDOCAINE 2% INJ 20 MG/ML (2 ML VIAL) ONE (12:21)
[2023-01-23] MEDS ORDERED: GLYCOPYRROLATE 0.2 MG/ML 2 ML VIAL ONE (12:21)
[2023-01-23] MEDS ORDERED: SODIUM CHLORIDE 0.9% (PF) 10 ML VIAL ONE (12:21)
[2023-01-23] MEDS ORDERED: fentaNYL (PF) 50 MCG/ML 2 ML AMP ONE (12:21)
[2023-01-23] MEDS ORDERED: PROPOFOL 10 MG/ML 20 ML VIAL IV ONE (12:21)
[2023-01-23] MEDS ORDERED: ROPIVACAINE 5 MG/ML 30 ML VIAL ONE (12:21)
[2023-01-23] MEDS ORDERED: NEOSTIGMINE 1 MG/ML 10 ML VIAL ONE (12:21)
[2023-01-23] MEDS ORDERED: SUCCINYLCHOLINE CHLORIDE 200 MG/10 ML VIAL IV ONE (12:21)
[2023-01-23] MEDS ORDERED: TRANEXAMIC 1,000 MG/100ML-NACL PREMIX BAG ONE (12:21)
[2023-01-23] MEDS ORDERED: PHENYLEPHRINE-0.9% NACL SYG 1,000 MCG/10 ML SYRINGE ONE (12:21)
[2023-01-23] MEDS ORDERED: ROCURONIUM 10 MG/ML (5 ML VIAL) IV ONE (12:21)
[2023-01-23] MEDS ORDERED: MIDAZOLAM 2 MG/2 ML VIAL ONE (12:21)
[2023-01-23] MEDS ORDERED: ceFAZolin 1,000 MG in SODIUM CHLORIDE 0.9% 1,000 ML IRRIGATION ONE (12:51)
--- NOTE | 2023-01-23 13:52 | P.OP ---
Date of Procedure: 01/23/23 Procedure(s) Performed: PREOPERATIVE DIAGNOSIS: Left knee severe osteoarthritis with genu varum POSTOPERATIVE DIAGNOSIS: Left knee severe osteoarthritis with genu varum OPERATION: Left knee cemented total replacement arthroplasty. ANESTHESIA: General plus regional catheter placement for postoperative pain control ESTIMATED BLOOD LOSS: 100 ml. KARDEX CLERK: Cynthia Perrin PA-C (assistance with: patient positioning, retraction, exposure, hemostasis, leg positioning, implantation, irrigation, closure, dressing) COMPLICATIONS: None apparent. COMPONENTS IMPLANTED: Persona system from [employer] INDICATIONS: Ryan is a 77 year old male with a history of left knee osteoarthritis. Conservative treatment has been tried and has been unsuccessful in controlling symptoms adequately. The operation of knee replacement has been discussed at length in the office, as well as potential risks and complications. These are inclusive of, but not limited to: bleeding, infection, scarring, discomfort, blood vessel and nerve damage, need for further surgery, failure to relieve symptoms, persistence, recurrence, or worsening of problems, loosening, dislocation, wear, blood clot, pulmonary embolism, , gait dysfunction, stiffness, and other risks as discussed in the office. The patient elects to proceed and the consent form has been signed. PROCEDURE: The patient was taken to the operating room and positioned on the operating room table in the supine position. Anesthesia was initiated. Care was taken to make sure that all pressure points were adequately padded. The operative lower extremity was prepped and draped in the usual aseptic fashion using ChloraPrep. Ioban drape was used for the case and the patient received intravenous antibiotics within one hour of the incision. A pneumotourniquet and leg jarvis were used for the case. The limb was exsanguinated with an Esmarch bandage and the tourniquet was inflated to 350 mmHg. Time-out was called confirming the patient's identity, side, procedure and administration of antibiotics and tranexamic acid, 1 g IV. The incision was then created midline directly over the knee, carried down through skin and into the subcutaneous tissues and down to fascia. Full thickness subcutaneous medial flap was developed. Medial parapatellar arthrotomy was performed and the interior of the knee was inspected. There was end-stage osteoarthritis of the knee with a mild to moderate genu varum type deformity. The fat pad was excised and proximal medial release on the tibia was completed using meticulous dissection and a curved osteotome. The anterior cruciate ligament was taken down. Note was made of significant attrition of the anterior and significant degenerative appearance of the posterior cruciate ligaments. The exposure was excellent. The knee was flexed 90 degrees and the patella was everted. A spot was chosen on the femur approximately 1 cm anterior to the posterior cruciate ligament insertion and an intramedullary hole was created within the femur. The intramedullary guide was then set to 5 degrees of valgus. The distal cutting block was attached and pinned into position. An appropriate amount of distal femoral resection was set. The oscillating saw was then used to make the distal femoral cut. This cut was confirmed to be flat with the flat end of an osteotome. The retractors were placed around the tibia and the tibial surface was addressed. The angle and depth of resection was adjusted using an extramedullary cutting guide. The guide had a built-in 3 degree posterior slope cut. Once the cutting guide was adjusted appropriately and in line with the axis of the tibia and confirmed to be in good position in relation to the second metatarsal and transmalleolar axis, the tibial cut was then created with protection of the posterior neurovascular structures and the collateral ligaments. The tibial cut surface was removed and sized. Femoral sizing was then accomplished using anterior referencing. Care was taken to analyze the posterior condyles for signs of deficiency or severe wear, and adjustments to the guide were made, as appropriate. 3 degree external rotation pins were placed. The cutting jig for the femur was applied to these pins. The planned cuts were further analyzed prior to performing them with the oscillating saw. No femoral notching was produced. Bone fragments were removed and the cut surfaces were finished, as necessary, with a reciprocating saw. Spacer block technique was then used to confirm that the flexion and extension gaps were equal. Soft tissue releases and adjustment of the tibial and/or femoral cuts were made, as necessary, until the gaps were equal. This included release of the posterior cruciate ligament, which was tight in this patient. The femur was then further finished for a posterior cruciate ligament substituting component. Patellar resurfacing was performed using a reamer. The size of the required patellar component was estimated and the patellar surface was then reamed down to a residual thickness which would recreate the wainwright thickness with the component. The exact placement of the patellar component was adjusted for position based on preoperative x-rays and intraoperative findings. The trial components were inserted. The tibial tray was allowed to self center and the patella was noted to track very well. The position of the tibial component was marked and the tibia was then finished for a stemmed tibial component. Cement was mixed on the back table and applied to the final components. Trial components were removed and the cut surfaces of the bone were pulse lavaged thoroughly and dried. Cement was then applied to the tibial surface and pressurized into the surface using finger pressurization technique. The tibial component was then applied and excess cement was removed after it was impacted securely and noted to be flush with the cut surface. In similar fashion, the cement was applied to the cut femoral surface, pressurized in using finger pressurization and the component was impacted into place. Excess cement was removed. The polyethylene spacer was then implanted and locked into position. The patellar component was then applied in similar technique and a patellar clamp was used to hold the patella in place as the cement hardened. Once the cement had fully hardened, the knee was reinspected. Any other cement extrusion was removed and final kinematic testing showed range of motion from 0 to 130 degrees with excellent stability, both medially and laterally and appropriate alignment of the leg. Patellar tracking was excellent. The knee was then thoroughly pulse lavaged with normal saline. The tourniquet was deflated and hemostasis was obtained with electrocautery and IV tranexamic acid, 1 g given prior to inflation of the tourniquet and another gram given at the time of closure. Closure was with #2 Ethibond in the fascia and supplemented with #2 Quill, 2-0 Vicryl suture was used for the subcutaneous tissues and 3-0 Quill for the skin. Dermabond/Steri-Strips were then applied. A lightly compressive dressing was applied using Webril and an Price wrap. The patient was then transferred to stretcher and taken to the recovery room in stable condition. Sponge and needle counts were correct.
[2023-01-23] MEDS ORDERED: LACTATED RINGERS 1,000 ML IV ONE (13:54)
--- NOTE | 2023-01-23 14:00 | P.ANPRN ---
Procedure Note - Anesthesia - Nerve Block Performed Left Adductor Canal Time Out Performed: Yes (12:01) Date of Procedure: 01/23/23 Procedure Start Time: : Procedure Stop Time: : Location of Patient: PreOp Indication: Acute Post-Operative Pain, Requested by Surgeon (Dr Dillon) Sedation Type: Sedate with meaningful contact maintained Preparation: Sterile Prep, Sterile Dressing Position: Supine Catheter: Indwelling Needle Types: Pajunk Needle Gauge: 21 Ultrasound used to visualize needle placement: Yes Ultrasound used to observe medication spread: Yes Injectate: 0.5% Ropivacaine (see comment for volume) (20cc) Blood Aspirated: No Pain Paresthesia on Injection Noted: No Image Stored and Saved: Yes Events: Uneventful and Well Tolerated
--- NOTE | 2023-01-23 14:01 | P.ANPRN ---
Procedure Note - Anesthesia - Nerve Block Performed Left iPack Time Out Performed: Yes Date of Procedure: 01/23/23 Procedure Start Time: 12:10 Procedure Stop Time: 12:14 Location of Patient: PreOp Indication: Requested by Surgeon (Dr Dillon) Sedation Type: Sedate with meaningful contact maintained Preparation: Sterile Prep Position: Supine Catheter: None Needle Types: Pajunk Needle Gauge: 21 Ultrasound used to visualize needle placement: Yes Ultrasound used to observe medication spread: Yes Injectate: 0.5% Ropivacaine (see comment for volume) (15cc +5cc PF Normal saline) Blood Aspirated: No Pain Paresthesia on Injection Noted: No Resistance on Injection: Normal Image Stored and Saved: Yes Events: Uneventful and Well Tolerated
[2023-01-23] MEDS ORDERED: MAGNESIUM HYDROXIDE 2,400 MG/30 ML CUP PO PRN (14:12)
[2023-01-23] MEDS ORDERED: HYDROcodone/APAP 5-325MG 1 EACH TAB PO PRN (14:12)
[2023-01-23] MEDS ORDERED: NALOXONE 0.4 MG/ML 1 ML VIAL IV PRN (14:12)
[2023-01-23] MEDS ORDERED: ONDANSETRON 4 MG/2 ML VIAL IVP PRN (14:12)
[2023-01-23] MEDS ORDERED: NA PHOS,M-B/NA PHOS,DI-BA 133 ML ENEMA RECTAL PRN (14:12)
[2023-01-23] MEDS ORDERED: HYDROmorphone 0.5 MG/0.5 ML SYRINGE IVP PRN ×2 (14:12)
[2023-01-23] MEDS ORDERED: bisacodyL 10 MG SUPP RECTAL PRN (14:12)
[2023-01-23] MEDS ORDERED: TEMAZEPAM 15 MG CAP PO PRN (14:12)
[2023-01-23] MEDS ORDERED: ROPIVACAINE 1,100 MG, SODIUM CHLORIDE 0.9% 500 ML 330 ML, EMPTY PAIN BALL 1 EACH MISCELLANE PRN ×2 (14:38)
[2023-01-23] MEDS: HYDROmorphone 0.5 MG/0.5 ML SYRINGE IVP PRN ×2 (14:50→15:19)
--- NOTE | 2023-01-23 15:14 | XR ---
EXAMINATION TYPE: XR knee limited LT DATE OF EXAM: 01/23/2023 COMPARISON: None HISTORY: Postop alignment TECHNIQUE: Left knee is examined in 2 projections FINDINGS: Tibial and femoral components have been placed. No acute fracture or dislocation is evident . Soft tissues have postsurgical change. IMPRESSION: 1. No acute fracture post knee replacement.
[2023-01-23] MEDS ORDERED: NITROGLYCERIN SL TABS 0.4 MG TAB SUBLINGUAL PRN (18:41)
[2023-01-23] MEDS: PROCHLORPERAZINE INJ 10 MG/2 ML VIAL IVP PRN (18:47)
[2023-01-23] MEDS ORDERED: METOCLOPRAMIDE 5 MG/ML 2 ML VIAL IVP PRN (19:44)
[2023-01-23] MEDS: HYDROcodone/APAP 7.5-325MG 1 EACH TAB PO PRN (20:08)
[2023-01-23] MEDS ORDERED: SENNOSIDES-DOCUSATE SODIUM 1 EACH TAB PO SCH (21:00)
[2023-01-23] MEDS ORDERED: ATORVASTATIN 80 MG TAB PO SCH (21:00)
[2023-01-23] MEDS ORDERED: METOPROLOL SUCCINATE (ER) 100 MG TAB.ER.24H PO SCH (21:00)
[2023-01-23] MEDS ORDERED: APIXABAN 5 MG TAB PO SCH (21:00)
[2023-01-24] MEDS: PROCHLORPERAZINE INJ 10 MG/2 ML VIAL IVP PRN (00:05)
[2023-01-24] MEDS: HYDROmorphone 0.5 MG/0.5 ML SYRINGE IVP PRN ×2 (00:18→05:06)
[2023-01-24] MEDS: LACTATED RINGERS 1,000 ML IV SCH ×3 (01:15→10:47)
[2023-01-24] MEDS: HYDROcodone/APAP 7.5-325MG 1 EACH TAB PO PRN ×2 (01:37→08:24)
--- NOTE | 2023-01-24 07:23 | P.PN ---
Progress Note - Text Progress Note Date: 01/24/23 (841) Anesthesiology Postop day 1 status post total knee arthroplasty with adductor canal catheter. Patient doing well. VAS 7 out of 10. Gross strength intact in lower extremity. Afebrile. Denies alterations in sensorium. Catheter site intact. Heart regular rate Lungs nonlabored Abdomen nondistended Assessment: Postop day 1 status post total knee arthroplasty with adductor canal catheter Plan: 1.All questions answered. Maintain catheter 2 more days with patient removal at home. Instructions to be given at discharge. 2.This note was dictated using [employer] software. Please be advised there is a potential for misspellings or errors in botanical technical officer.
[2023-01-24] MEDS ORDERED: PANTOPRAZOLE 40 MG TABLET PO SCH (07:30)
[2023-01-24] MEDS ORDERED: APIXABAN 5 MG TAB PO SCH (08:00)
[2023-01-24 08:22] VITALS: BP 119/70; PULSE 70; RESP 16; TEMP 98.2
[2023-01-24] MEDS ORDERED: NON FORMULARY DRUG (Ubidecarenone [Co Q-10] 300 MG Capsule) PO SCH (09:00)
[2023-01-24] MEDS ORDERED: MAGNESIUM OXIDE 400 MG TAB PO SCH (09:00)
[2023-01-24] MEDS ORDERED: METOPROLOL SUCCINATE (ER) 50 MG TAB.ER.24H PO SCH (09:00)
[2023-01-24] MEDS ORDERED: CHOLECALCIFEROL 25 MCG (1000 IU) TABLET PO SCH (09:00)
[2023-01-24] MEDS ORDERED: VALSARTAN 160 MG TAB PO SCH (09:00)
[2023-01-24] MEDS ORDERED: hydroCHLOROthiazide 25 MG TAB PO SCH (09:00)
--- NOTE | 2023-01-24 10:47 | P.DS ---
Providers Expected date of discharge: 01/24/23 Attending physician: Maverick Dillon Consults: 01/23/23 14:12 Consult Physician Routine Consulting Provider: Andres Johnston Consult Reason/Comments: Medical management Do you want consulting provider notified?: Yes Primary care physician: Andres Johnston [facility] Course: This is a 77-year-old male who has been followed in our office by Dr. Dillon for continued complaints of left knee pain due to left knee osteoarthritis. Treatment options were discussed, and patient elected to undergo a left total knee arthroplasty. Patient was seen pre-operatively by Dr. Johnston and cleared for surgery. Patient underwent a left total knee arthroplasty on 01/23/[address] Dillon. The procedure was performed without complication or sequelae. The patient is doing fairly well postoperatively. Vital signs and labs are stable on postoperative day #1. Patient was examined bedside this morning. He is up to the bedside chair. Patient states he is overall doing very well and the pain in left knee is well- controlled. He has been ambulating with a walker with minimal assistance. Patient has passed physical therapy this morning to return home. Patient is comfortable being discharged home today. Patient has no new complaints this morning. On examination, the patient is sitting up in the bedside chair in no apparent distress. He is alert and orientated 3. On inspection of the left knee, there is a clean, dry, intact surgical dressing in place with no bleeding or drainage through the dressing. Patient has good strength and ROM of the left ankle and toes. Motor and sensory function is intact of the left lower extremity. The dorsalis pedis pulse is easily palpable, the left lower extremity is warm and well perfused with brisk capillary refill. Calf is soft and non-tender to palpation. Patient is discharged home with home health care today in good condition, pending medical clearance. Patient will follow-up in the office at [facility] in 2 weeks. Please see med rec for accurate list of discharge medication. Plan - Discharge Summary Discharge Rx Participant: No New Discharge Prescriptions: New HYDROcodone/APAP 7.5-325MG [[place] 7.5-325] 1 - 2 tab PO Q6HR PRN #32 tab PRN Reason: Pain Ondansetron Odt [Zofran Odt] 4 mg PO Q8HR PRN #14 tab PRN Reason: Nausea Sennosides-Docusate Sodium [Senokot-S] 1 tab PO BID #60 tablet No Action Nitroglycerin Sl Tabs [Nitrostat] 0.4 mg SUBLINGUAL Q5M PRN PRN Reason: Chest Pain Cholecalciferol [Vitamin D3 (25 Mcg = 1000 Iu)] 2,000 unit PO DAILY Apixaban [Eliquis] 5 mg PO BID Omeprazole [PriLOSEC] 20 mg PO AC-BID Metoprolol Succinate [Toprol XL] 100 mg PO HS Atorvastatin [Lipitor] 80 mg PO HS Fiber-Lax 625 mg PO BID Metoprolol Succinate (ER) [Toprol Xl] 50 mg PO DAILY Magnesium Oxide [Magnesium] 1 tab PO DAILY Ubidecarenone [Co Q-10] 200 mg PO DAILY Valsart/Hctz 1 tab PO DAILY Discharge Medication List Apixaban [Eliquis] 5 mg PO BID 03/23/16 [History] Atorvastatin [Lipitor] 80 mg PO HS 03/23/16 [History] Cholecalciferol [Vitamin D3 (25 Mcg = 1000 Iu)] 2,000 unit PO DAILY 03/23/16 [History] Fiber-Lax 625 mg PO BID 03/23/16 [History] Metoprolol Succinate [Toprol XL] 100 mg PO HS 03/23/16 [History] Nitroglycerin Sl Tabs [Nitrostat] 0.4 mg SUBLINGUAL Q5M PRN 03/23/16 [History] Omeprazole [PriLOSEC] 20 mg PO AC-BID 03/23/16 [History] Ubidecarenone [Co Q-10] 200 mg PO DAILY 02/09/22 [History] Magnesium Oxide [Magnesium] 1 tab PO DAILY 01/16/23 [History] Metoprolol Succinate (ER) [Toprol Xl] 50 mg PO DAILY 01/16/23 [History] Valsart/Hctz 1 tab PO DAILY 01/16/23 [History] HYDROcodone/APAP 7.5-325MG [[place] 7.5-325] 1 - 2 tab PO Q6HR PRN #32 tab 01/23/23 [Rx] Ondansetron Odt [Zofran Odt] 4 mg PO Q8HR PRN #14 tab 01/23/23 [Rx] Sennosides-Docusate Sodium [Senokot-S] 1 tab PO BID #60 tablet 01/23/23 [Rx] Follow up Appointment(s)/Referral(s): Cynthia Perrin, TOM [PHYSICIAN OPERATIONS ADMINISTRATIVE ASSISTANT] - 2 Weeks [facility], [NON-STAFF] - As Needed Activity/Diet/Wound Care/Special Instructions: May bear wt as tolerated with walker. Remove Optifoam dressing 7 days post op. May shower 48h post op after removing kiya wrap and compression stockings. Wear compression stockings during the day for 2 weeks post op.
[2023-01-24 10:57] LABS: ALT 20 U/L (10-49); AST 25 U/L (14-35); Albumin 3.8 d/dL (3.8-4.9); Albumin/Globulin Ratio 2.11 Ratio (1.60-3.17); Alkaline Phosphatase 77 U/L (41-126); BUN/Creat Ratio 16.75 Ratio (12.00-20.00); Blood Urea Nitrogen 13.4 mg/dL (9.0-27.0); Calcium 8.7 mg/dL (8.7-10.3); Carbon Dioxide 26.1 mmol/L (21.6-31.8); Chloride 100 mmol/L (96-109); Globulin 1.8 d/dL (1.6-3.3); Glucose 114 mg/dL (70-110); Potassium 3.8 mmol/L (3.5-5.5); Sodium 138 mmol/L (135-145); Total Bilirubin 0.5 mg/dL (0.3-1.2); Total Protein 5.6 d/dL (6.2-8.2)
[2023-01-24 11:03] LABS: Basophils # (A) 0.03 X 10*3/uL (0.00-0.10); Basophils % (A) 0.3 %; Eosinophils # (A) 0.04 X 10*3/uL (0.04-0.35); Eosinophils % (A) 0.4 %; HCT 37.3 % (39.6-50.0); HGB 12.5 d/dL (13.0-17.0); Lymphocytes # (A) 0.92 X 10*3/uL (0.90-5.00); Lymphocytes % (A) 8.9 %; MCH 29.4 pg (27.0-32.0); MCHC 33.5 d/dL (32.0-37.0); MCV 87.8 FL (80.0-97.0); Mean Platelet Volume 11.1 FL (9.5-12.2); Monocytes # (A) 1.07 X 10*3/uL (0.20-1.00); Monocytes % (A) 10.3 %; NRBC Per 100 WBC 0 X 10*3/uL (0.00-0.01); Neutrophils # (A) 8.25 X 10*3/uL (1.80-7.70); Neutrophils % (A) 79.7 %; Platelet Count 162 X 10*3/uL (140-440); RBC 4.25 X 10*6/uL (4.40-5.60); RDW 14.1 % (11.5-14.5); WBC 10.35 X 10*3/uL (4.50-10.00)
== END 2023-01-24 12:23 | disposition home health service (06) ==
LOC: OR 10:53 → 4SSUR 14:05 → OR 01-24 12:23
PROVIDERS: ATTEND Orthopaedic Surgery
DX: M17.12 Unilateral primary osteoarthritis, left knee (principal); I10 Essential (primary) hypertension; E78.5 Hyperlipidemia, unspecified; Z86.79 Personal history of other diseases of the circulatory system; Z79.899 Other long term (current) drug therapy; Z79.01 Long term (current) use of anticoagulants
CPT/HCPCS: 94760; 97161; 64999; 64448; 80053; 85025; 73560; 27438; C1713; C1776; C1751; J2250; J0780 ×2; J2765; J0690 ×3; J2405; J3010; J2795; J1170 ×2

== ENCOUNTER 2023-01-25 13:03 | Inpatient (IN) | payer MEDICARE, BC ==
[2023-01-25] MEDS ORDERED: DILTIAZEM DRIP BOLUS FROM BAG 1 MG SOLN IV ONE (13:27)
[2023-01-25] MEDS ORDERED: SODIUM CHLORIDE 0.9% 500 ML 500 ML IV STA (13:27)
--- NOTE | 2023-01-25 13:32 | ED ---
General Adult HPI - General Chief complaint: Recheck/Abnormal Lab/Rx Stated complaint: afib Time Seen by Provider: 01/25/23 13:20 Source: patient, RN notes reviewed, old records reviewed Mode of arrival: ambulatory Limitations: no limitations - History of Present Illness Initial comments: This is a 77-year-old male with past medical history significant for atrial fibrillation. Patient states he is normally on eliquis but he stopped it for 3 days because he had surgery on his left knee on Monday. Patient states today his nurse that came to the hospital and his blood pressure was low so he came to the hospital. Patient states couple times he felt like he might pass out but did not pass out. Patient denies any chest pain or palpitations. Patient denies any fever chills or cough per patient denies any problems with the knee. Patient denies abdominal pain patient denies nausea vomiting diarrhea - Related Data Home Medications Medication Instructions Recorded Confirmed Apixaban [Eliquis] 5 mg PO BID 03/23/16 01/25/23 Metoprolol Succinate [Toprol XL] 100 mg PO HS 03/23/16 01/25/23 Nitroglycerin Sl Tabs [Nitrostat] 0.4 mg SUBLINGUAL Q5M PRN 03/23/16 01/25/23 Omeprazole [PriLOSEC] 20 mg PO AC-BID 03/23/16 01/25/23 Magnesium Oxide [Magnesium] 500 tab PO DAILY 01/16/23 01/25/23 Metoprolol Succinate (ER) [Toprol 50 mg PO DAILY 01/16/23 01/25/23 Xl] Atorvastatin [Lipitor] 80 mg PO HS 01/25/23 01/25/23 Cholecalciferol [Vitamin D3 (25 50 mcg PO DAILY 01/25/23 01/25/23 Mcg = 1000 Iu)] Fluocinonide 0.05% Solution 1 applic TOPICAL HS PRN 01/25/23 01/25/23 Furosemide [Lasix] 20 mg PO DAILY 01/25/23 01/25/23 Ketoconazole 2% Shampoo [Nizoral] 1 applic TOPICAL DIRECTED PRN 01/25/23 01/25/23 Ubidecarenone [Coenzyme Q10] 200 mg PO DAILY 01/25/23 01/25/23 Valsartan/Hydrochlorothiazide 1 tab PO DAILY 01/25/23 01/25/23 [Valsartan-Hctz 320-25 mg Tab] calcium polycarbophiL [Fibercon] 625 mg PO DAILY 01/25/23 01/25/23 Previous Rx's Medication Instructions Recorded HYDROcodone/APAP 7.5-325MG [[place] 1 - 2 tab PO Q6HR PRN #32 tab 01/23/23 7.5-325] Ondansetron Odt [Zofran Odt] 4 mg PO Q8HR PRN #14 tab 01/23/23 Sennosides-Docusate Sodium 1 tab PO BID #60 tablet 01/23/23 [Senokot-S] Allergies Allergy/AdvReac Type Severity Reaction Status Date / Time No Known Allergies Allergy Verified 01/25/23 13:44 Review of Systems ROS Statement: Those systems with pertinent positive or pertinent negative responses have been documented in the HPI. ROS Other: All systems not noted in ROS Statement are negative. Past Medical History Past Medical History: Coronary Artery Disease (CAD), GERD/Reflux, Hyperlipidemia, Hypertension, Osteoarthritis (OA), Sleep Apnea/CPAP/BIPAP Additional Past Medical History / Comment(s): degenerative discs in his back, and pre cancerous skin lesions , SEE DR BARRETO'S HISTORY AND PHYSICAL FOR CARDIAC HISTORY, C PAP MACHINE, GI BLEED History of Any Multi-Drug Resistant Organisms: None Reported Past Surgical History: Ablation, Heart Catheterization With Stent, Hernia Repair, Joint Replacement, Pacemaker Additional Past Surgical History / Comment(s): inguinal hernia, CARDIAC ABLATION, HEART CATH WITH STENT X2 , lt knee Past Anesthesia/Blood Transfusion Reactions: Previous Problems w/ Anesthesia, Postoperative Nausea & Vomiting (PONV) Date of Last Stent Placement:: 2019 Type of Cardiac Device: Permanent Pacemaker Device Placement Date:: 2010 Past Psychological History: No Psychological Hx Reported Smoking Status: Former smoker Past Alcohol Use History: None Reported Past Drug Use History: None Reported - Past Family History Mother Family Medical History: Cancer Additional Family Medical History / Comment(s): breast and skin Sister(s) Family Medical History: Cancer Additional Family Medical History / Comment(s): breast Father Family Medical History: Cancer Additional Family Medical History / Comment(s): throat General Exam - General Exam Comments Initial Comments: GENERAL: Patient is well-developed and well-nourished. Patient is nontoxic and well- hydrated and is in mild distress. ENT: Neck is soft and supple. No significant lymphadenopathy is noted. Oropharynx i s clear. Moist mucous membranes. Neck has full range of motion without eliciting any pain. EYES: The sclera were anicteric and conjunctiva were pink and moist. Extraocular movements were intact and pupils were equal round and reactive to light. Eyelids were unremarkable. PULMONARY: Unlabored respirations. Good breath sounds bilaterally. No audible rales rhonchi or wheezing was noted. CARDIOVASCULAR: Patient is tachycardic at 160 beats a minute and is irregularly irregular ABDOMEN: Soft and nontender with normal bowel sounds. SKIN: Skin is clear with no lesions or rashes and otherwise unremarkable. NEUROLOGIC: Patient is alert and oriented x3. Cranial nerves II through XII are grossly intact. Motor and sensory are also intact. Normal speech, volume and content. Symmetrical smile. MUSCULOSKELETAL: Normal extremities with adequate strength and full range of motion. No lower extremity swelling or edema. No calf tenderness. LYMPHATICS: No significant lymphadenopathy is noted PSYCHIATRIC: Normal psychiatric evaluation. Limitations: no limitations Course Vital Signs 01/25/23 01/25/23 01/25/23 13:14 13:48 14:04 Temperature 98.4 F Pulse Rate 87 161 H 160 H Pulse Rate [ Sash Maker ] Respiratory 20 18 Rate Blood Pressure 76/43 112/71 135/86 O2 Sat by Pulse 95 95 96 Oximetry 01/25/23 01/25/23 01/25/23 14:10 14:15 14:30 Temperature Pulse Rate 154 H 141 H Pulse Rate [ 154 H Sash Maker ] Respiratory 18 18 Rate Blood Pressure 130/72 96/73 O2 Sat by Pulse 96 96 Oximetry 01/25/23 01/25/23 14:45 15:00 Temperature Pulse Rate 152 H 145 H Pulse Rate [ Sash Maker ] Respiratory 20 20 Rate Blood Pressure 87/62 117/86 O2 Sat by Pulse 96 96 Oximetry Medical Decision Making - Medical Decision Making EKG was interpreted by myself shows atrial fibrillation with rapid ventricular response at 162 bpm QRS is a 70 Q-T intervals 263 QTC is 353. Patient's EKG shows no ST segment elevation or depression. Repeat EKG was done after the patient was given Cardizem bolus and Cardizem drip. Patient's repeat EKG was interpreted by myself shows atrial fibrillation at a heart rate of 130 bpm QRS is 80 QT interval is 284 QTC is 370. Patient's EKG shows no ST segment elevation or depression Was pt. sent in by a medical professional or institution (FARSHAD Edwards, SAND SCREENER OPERATOR, urgent care, hospital, or [facility]...) When possible be specific @ -[No] Did you speak to anyone other than the patient for history (EMS, parent, family, police, friend...)? What history was obtained from this source @ -[No] Did you review nursing and triage notes (agree or disagree)? Why? @ -[I reviewed and agree with nursing and triage notes] Were old charts reviewed (outside hosp., previous admission, EMS record, old EKG, old radiological studies, urgent care reports/EKG's, [facility] records)? Report findings @ -I reviewed prior charts per labwork on this patient Differential Diagnosis (chest pain, altered mental status, abdominal pain women, abdominal pain men, vaginal bleeding, weakness, fever, dyspnea, syncope, headache, dizziness, GI bleed, back pain, seizure, CVA, palpatations, mental health, musculoskeletal)? @ -Differential Palpitations Ventricular arrhythmias, atrial arrhythmias, myocardial infarction, anemia, thyrotoxicosis, electrolyte imbalance, hypokalemia, pulmonary embolism, pulmonary disease, drugs, alcohol, anxiety, stress.... This is not meant to be an all-inclusive list. EKG interpreted by me (3pts min.). @ -[As above] X-rays interpreted by me (1pt min.). @ -Chest x-ray shows no acute abnormality CT interpreted by me (1pt min.). @ -[None done] U/S interpreted by me (1pt. min.). @ -[None done] What testing was considered but not performed or refused? (CT, X-rays, U/S, labs)? Why? @ -[None] What meds were considered but not given or refused? Why? @ -[None] Did you discuss the management of the patient with other professionals (professionals i.e. FARSHAD Edwards, SAND SCREENER OPERATOR, lab, RT, psych nurse, long term care social worker, acting section chief, teacher, legal compliance officer, nurse outreach case manager)? Give summary @ -I spoke with Dr. Johnston he agreed to admit the patient admitted the patient wrote admitting orders Was smoking cessation discussed for >3mins.? @ -[No] Was critical care preformed (if so, how long)? @ -35 minutes Were there social determinants of health that impacted care today? How? (Homelessness, low income, unemployed, alcoholism, drug addiction, transportation, low edu. Level, literacy, decrease access to med. care, long-term, rehab)? @ -[No] Was there de-escalation of care discussed even if they declined (Discuss DNR or withdrawal of care, Hospice)? DNR status @ -[No] What co-morbidities impacted this encounter? (DM, HTN, Smoking, COPD, CAD, Cancer, CVA, ARF, Chemo, Hep., AIDS, mental health diagnosis, sleep apnea, morbid obesity)? @ -[None] Was patient admitted / discharged? Hospital course, mention meds given and route, prescriptions, significant lab abnormalities, going to OR and other pertinent info. @ -Patient was given a Cardizem bolus and placed on a Cardizem drip to slow the heart rate down. Patient's heart rate did drop down to 140s patient was a little anxious and did receive some Ativan as well. I spoke with Dr. Johnston he agreed to admit the patient admitted the patient wrote admitting orders I consulted cardiology Undiagnosed new problem with uncertain prognosis? @ -[No] Drug Therapy requiring intensive monitoring for toxicity (Heparin, Nitro, Insulin, Cardizem)? @ -[No] Were any procedures done? @ -[No] Diagnosis/symptom? @ -A. fib with rapid ventricular response Acute, or Chronic, or Acute on Chronic? @ -Acute Uncomplicated (without systemic symptoms) or Complicated (systemic symptoms)? @ -Complicated Side effects of treatment? @ -[No] Exacerbation, Progression, or Severe Exacerbation? @ -[No] Poses a threat to life or bodily function? How? (Chest pain, [place], [place], pneumonia, PE, COPD, DKA, ARF, appy, cholecystitis, CVA, Diverticulitis, Homicidal, Suicidal, threat to staff... and all critical care pts) @ -Yes this could lead to hypoperfusion and end organ dysfunction - Lab Data Result diagrams: 01/25/23 13:39 01/25/23 13:39 Lab Results 01/25/23 01/25/23 01/25/23 Range/Units 13:39 13:39 13:39 WBC 14.1 H (3.8-10.6) k/uL RBC 4.47 (4.30-5.90) m/uL Hgb 13.2 (13.0-17.5) gm/dL Hct 38.8 L (39.0-53.0) % MCV 86.8 (80.0-100.0) fL MCH 29.5 (25.0-35.0) pg MCHC 34.0 (31.0-37.0) g/dL RDW 14.5 (11.5-15.5) % Plt Count 178 (150-450) k/uL MPV 8.0 Neutrophils % 74 % Lymphocytes % 13 % Monocytes % 10 % Eosinophils % 1 % Basophils % 0 % Neutrophils # 10.4 H (1.3-7.7) k/uL Lymphocytes # 1.9 (1.0-4.8) k/uL Monocytes # 1.4 H (0-1.0) k/uL Eosinophils # 0.1 (0-0.7) k/uL Basophils # 0.1 (0-0.2) k/uL PT 10.6 (9.0-12.0) sec INR 1.0 (<1.2) APTT 27.0 (22.0-30.0) sec Sodium 137 (137-145) mmol/L Potassium 4.0 (3.5-5.1) mmol/L Chloride 100 (98-107) mmol/L Carbon Dioxide 24 (22-30) mmol/L Anion Gap 13 mmol/L BUN 21 H (9-20) mg/dL Creatinine 1.08 (0.66-1.25) mg/dL Est GFR (CKD-EPI)AfAm 76 (>60 ml/min/1.73 sqM) Est GFR (CKD-EPI)NonAf 65 (>60 ml/min/1.73 sqM) Glucose 100 H (74-99) mg/dL Calcium 9.6 (8.4-10.2) mg/dL Magnesium 2.0 (1.6-2.3) mg/dL Total Bilirubin 1.1 (0.2-1.3) mg/dL AST 40 (17-59) U/L ALT 24 (4-49) U/L Alkaline Phosphatase 85 (38-126) U/L Troponin I (0.000-0.034) ng/mL Total Protein 6.8 (6.3-8.2) g/dL Albumin 3.9 (3.5-5.0) g/dL 01/25/23 Range/Units 13:39 WBC (3.8-10.6) k/uL RBC (4.30-5.90) m/uL Hgb (13.0-17.5) gm/dL Hct (39.0-53.0) % MCV (80.0-100.0) fL MCH (25.0-35.0) pg MCHC (31.0-37.0) g/dL RDW (11.5-15.5) % Plt Count (150-450) k/uL MPV Neutrophils % % Lymphocytes % % Monocytes % % Eosinophils % % Basophils % % Neutrophils # (1.3-7.7) k/uL Lymphocytes # (1.0-4.8) k/uL Monocytes # (0-1.0) k/uL Eosinophils # (0-0.7) k/uL Basophils # (0-0.2) k/uL PT (9.0-12.0) sec INR (<1.2) APTT (22.0-30.0) sec Sodium (137-145) mmol/L Potassium (3.5-5.1) mmol/L Chloride (98-107) mmol/L Carbon Dioxide (22-30) mmol/L Anion Gap mmol/L BUN (9-20) mg/dL Creatinine (0.66-1.25) mg/dL Est GFR (CKD-EPI)AfAm (>60 ml/min/1.73 sqM) Est GFR (CKD-EPI)NonAf (>60 ml/min/1.73 sqM) Glucose (74-99) mg/dL Calcium (8.4-10.2) mg/dL Magnesium (1.6-2.3) mg/dL Total Bilirubin (0.2-1.3) mg/dL AST (17-59) U/L ALT (4-49) U/L Alkaline Phosphatase (38-126) U/L Troponin I 0.055 H* (0.000-0.034) ng/mL Total Protein (6.3-8.2) g/dL Albumin (3.5-5.0) g/dL Critical Care Time Critical Care Time: Yes Total Critical Care Time: 35 Disposition Clinical Impression: Atrial fibrillation with rapid ventricular response Disposition: ADMITTED IP TO THIS HOSP Referrals: Andres Johnston MD [Primary Care Provider] - 1-2 days Time of Disposition: 15:39
[2023-01-25 13:47] LABS: Basophils # (A) 0.1 k/uL (0-0.2); Basophils % (A) 0 %; Eosinophils # (A) 0.1 k/uL (0-0.7); Eosinophils % (A) 1 %; HCT 38.8 % (39.0-53.0); HGB 13.2 gm/dL (13.0-17.5); Lymphocytes # (A) 1.9 k/uL (1.0-4.8); Lymphocytes % (A) 13 %; MCH 29.5 pg (25.0-35.0); MCV 86.8 fL (80.0-100.0); Monocytes # (A) 1.4 k/uL (0-1.0); Monocytes % (A) 10 %; Neutrophils # (A) 10.4 k/uL (1.3-7.7); Neutrophils % (A) 74 %; Platelet Count 178 k/uL (150-450); RBC 4.47 m/uL (4.30-5.90); RDW 14.5 % (11.5-15.5); WBC 14.1 k/uL (3.8-10.6)
[2023-01-25 13:54] LABS: Prothrombin Time 10.6 sec (9.0-12.0)
[2023-01-25 13:57] LABS: ALT 24 U/L (4-49); AST 40 U/L (17-59); African American GFR (CKD) 76 (>60 ml/min/1.73 sqM); Albumin 3.9 g/dL (3.5-5.0); Alkaline Phosphatase 85 U/L (38-126); Anion Gap 13 mmol/L; Blood Urea Nitrogen 21 mg/dL (9-20); Calcium 9.6 mg/dL (8.4-10.2); Carbon Dioxide 24 mmol/L (22-30); Chloride 100 mmol/L (98-107); Glucose 100 mg/dL (74-99); Non-African American GFR(CKD) 65 (>60 ml/min/1.73 sqM); Sodium 137 mmol/L (137-145); Total Bilirubin 1.1 mg/dL (0.2-1.3); Total Protein 6.8 g/dL (6.3-8.2)
[2023-01-25] MEDS: DILTIAZEM 125 MG in SODIUM CHLORIDE 0.9% 100 ML IV SCH (14:02)
--- NOTE | 2023-01-25 14:20 | XR ---
EXAMINATION TYPE: XR chest 2V DATE OF EXAM: 01/25/2023 2:16 PM COMPARISON: None TECHNIQUE: XR chest 2V Frontal and lateral views of the chest. CLINICAL INDICATION:Male, 77 years old with history of dysrhythmia; FINDINGS: Lungs/Pleura: There is no evidence of pleural effusion, focal consolidation, or pneumothorax. Hyperi nflation. Chronic senescent parenchymal change. Elevation of the right hemidiaphragm. Pulmonary vascularity: Unremarkable. Heart/mediastinum: Cardiomediastinal silhouette is enlarged. Atherosclerotic calcifications are seen in the aorta. Two lead cardiac conduction device overlying the left hemithorax with lead tips projec ting over the right ventricle and right atrium. Musculoskeletal: Multiple level degenerative disc disease changes seen throughout the spine. IMPRESSION: Background COPD changes and cardiomegaly without radiographic evidence of an acute process.
[2023-01-25] MEDS ORDERED: LORazepam 2 MG/ML INJ IV STA (15:04)
[2023-01-25] MEDS ORDERED: SODIUM CHLORIDE 0.9% 1,000 ML IV ONE (15:05)
[2023-01-25] MEDS ORDERED: SODIUM CHLORIDE 0.9% 500 ML 500 ML IV ONE ×2 (15:13→16:17)
[2023-01-25] MEDS ORDERED: HYDROcodone/APAP 5-325MG 1 EACH TAB PO STA (15:32)
[2023-01-25] MEDS ORDERED: NITROGLYCERIN SL TABS 0.4 MG TAB SUBLINGUAL PRN (15:39)
--- NOTE | 2023-01-25 17:50 | CT ---
EXAMINATION TYPE: CT chest angio for PE DATE OF EXAM: 01/25/2023 COMPARISON: Radiographs 01/25/2023 HISTORY: 77-year-old male assess for PE, Elevated heart rate, recent knee sx. Cardiac hx, denies CP t wyatt TECHNIQUE: Contiguous axial scanning of the chest performed with IV Contrast, patient injected with 1 00 mL of Isovue 370. Coronal/sagittal MIP reconstructions performed. CT DLP: 393.7 mGycm Automated exposure control for dose reduction was used. FINDINGS: Left anterior chest wall pacemaker generator with right atrial and ventricular leads. Heart normal si ze without cardio effusion. No flattening of the interventricular septum though there is prominent re flux of contrast into the hepatic veins. Extensive LAD coronary artery calcifications are present. Moderate atherosclerotic arch calcifications with conventional arch vessel branching anatomy. Moderat e atherosclerotic changes aortic arch and descending thoracic aorta. There is ectatic descending thor acic aorta measuring up to 3.1 cm. Borderline to mildly enlarged caliber to the main right and left pulmonary arteries measuring up to 2 .6 cm suggesting underlying pulmonary arterial hypertension. No pulmonary embolus is seen. Mildly enlarged right hilar lymph node measuring 1.6 cm may be reactive/post inflammatory. Possible a dditional prevascular space lymph node measuring 1.1 cm and left hilar node also measuring 1.1 cm, al so should be reassessed at follow-up. 1 Prominent patchy basilar right middle lobe and posterior right lower lobe opacity. Additional patchy opacity inferior lingula. Mild emphysematous changes noted. No pleural effusion. 7 mm anterior right middle lobe pulmonary nodule, axial image 78 should be reassessed at follow-up. Small hiatal hernia. Visualized upper abdomen shows moderate stool burden. Bones: Osteopenia. No osseous destructive process. IMPRESSION: 1. COPD WITH MILD EMPHYSEMA. POSSIBLE UNDERLYING PULMONARY ARTERIAL HYPERTENSION. NO EVIDENCE FOR PUL MONARY EMBOLUS. 2. CORRELATE FOR ELEVATED CARDIAC PRESSURES GIVEN THE PULMONARY ARTERIAL HYPERTENSION AND REFLUX OF C ONTRAST INTO THE HEPATIC VEINS. 3. CAD with extensive LAD coronary artery calcifications. 4. Patchy opacities at the right greater than left lung bases. This could represent areas of scarring /atelectasis or early infiltrates. Correlate with symptoms. 5. A nonspecific 7 mm right middle lobe pulmonary nodule. Additional few borderline to mildly enlarge d mediastinal and hilar nodes measuring up to 1.6 cm which may be reactive/post inflammatory. Three-m [facility] follow-up CT chest recommended to reassess these findings.
[2023-01-25 22:18] LABS: Glucose,Whole Blood 182 mg/dL (70-110)
[2023-01-25] MEDS ORDERED: NALOXONE 0.4 MG/ML 1 ML VIAL IV PRN (22:55)
[2023-01-25] MEDS: APIXABAN 5 MG TAB PO SCH (23:05)
[2023-01-25] MEDS: ATORVASTATIN 80 MG TAB PO SCH (23:05)
--- NOTE | 2023-01-26 03:03 | P.CNPUL ---
History of Present Illness Consult date: 01/26/23 Requesting physician: Andres Johnston Reason for consult: other (ICU management) Chief complaint: Hypotension and lightheaded History of present illness: I am seeing this patient in new consultation today 01/26/2023 in the ICU for atrial fibrillation with rapid ventricular rate and hypotension. Patient is a 77-year-old white male with past medical history significant for paroxysmal atrial fibrillation normally anticoagulated on Eliquis, previous ablation and pacemaker insertion, coronary artery disease, hyperlipidemia, hypertension, obstructive sleep apnea, and osteoarthritis. Patient recently had a left total knee replacement on January 23, he was discharged home 2 days ago. Apparently, yesterday morning he started to feel lightheaded, and took his blood pressure which was low. His physical therapist assistant warehouse manager came to his house for rehab, found his heart rate to be elevated, and recommended that he come to the emergency room. On arrival to the emergency room, he was fluid resuscitated with 1.5 L normal saline bolus, and started on Cardizem infusion which is currently at 10 mg per hour. He was originally admitted to the cardiac stepdown unit, but was transferred to the ICU earlier yesterday evening due to hypotension. Patient is currently sitting up in bed, on 2 L/m nasal cannula, in no acute distress. Heart rate is currently 130 bpm, and blood pressure is normotensive. He is pretty much asymptomatic at this time. Denies chest pain, heart palpitations, lightheadedness. No need for cardioversion or vasopressors at this time. If the patient does become hypotensive again, recommend switching to amiodarone infusion. He denies any infectious symptoms such as fevers, chills, myalgias, cough, chest pain, hemoptysis. He denies any nausea or vomiting, abdominal pain, diarrhea. He states his last bowel movement was approximately 4 days ago. Denies any genitourinary complaints. There is a postoperative dressing on the left knee which is clean and dry. There is a left knee nerve block. Chest CTA on arrival was negative for PE. It did show COPD changes, likely some underlying pulmonary hypertension, coronary artery disease with significant calcification within the LAD, patchy opacities at bilateral lung bases, likely atelectasis, and a non-specific 7 mm right middle lobe pulmonary nodule and nonspecific mediastinal and hilar lymphadenopathy which will need to be followed. CBC on arrival showed some leukocytosis with a WBC count of 14.1, hemoglobin 13.2, hematocrit 38.8, platelets 178. BMP was fairly unremarkable. Lactic acid level was 1.7. Troponins are mildly elevated at 0.055, 0.068, and 0.063 respectively. Patient's Eliquis has been restarted. Afebrile. Patient will be monitored in the intensive care unit. Review of Systems REVIEW OF SYSTEMS: CONSTITUTIONAL: Denies any recent significant weight loss or weight gain. Denies fever EYES: Denies change in vision. EARS, NOSE, MOUTH, THROAT: Denies headaches, denies sore throat. CARDIOVASCULAR: Denies chest pain, palpitations or syncopal episodes. Admits lightheadedness as described in HPI RESPIRATORY: Denies shortness of breath, cough, congestion or hemoptysis. GASTROINTESTINAL: Denies change in appetite, abdominal pain, nausea and vomiting, or diarrhea GENITOURINARY: Denies hematuria, denies infections. MUSKULOSKELETAL: Denies knee pain. Left knee is post surgical INTEGUMENTARY: Denies rash, denies eczema. NEUROLOGICAL: Denies recent memory loss, no recent seizure activity. PSYCHIATRIC: Denies anxiety, denies depression. HEMATOLOGIC/LYMPHATIC: Denies anemia, denies enlarged lymph node Past Medical History Past Medical History: Coronary Artery Disease (CAD), GERD/Reflux, Hyperlipidemia, Hypertension, Osteoarthritis (OA), Sleep Apnea/CPAP/BIPAP Additional Past Medical History / Comment(s): degenerative discs in his back, and pre cancerous skin lesions , SEE DR BARRETO'S HISTORY AND PHYSICAL FOR CARDIAC HISTORY, C PAP MACHINE, GI BLEED History of Any Multi-Drug Resistant Organisms: None Reported Past Surgical History: Ablation, Heart Catheterization With Stent, Hernia Repair, Joint Replacement, Pacemaker Additional Past Surgical History / Comment(s): inguinal hernia, CARDIAC ABLATION, HEART CATH WITH STENT X2 , lt knee Past Anesthesia/Blood Transfusion Reactions: Previous Problems w/ Anesthesia, Postoperative Nausea & Vomiting (PONV) Date of Last Stent Placement:: 2013, 2019 Type of Cardiac Device: Permanent Pacemaker Device Placement Date:: 2010 Past Psychological History: No Psychological Hx Reported Smoking Status: Former smoker Past Alcohol Use History: None Reported Additional Past Alcohol Use History / Comment(s): STARTED SMOKING AT AGE 14 LEEANNE T 1992 SMOKED 1PPD Past Drug Use History: None Reported - Past Family History Mother Family Medical History: Cancer Additional Family Medical History / Comment(s): breast and skin Sister(s) Family Medical History: Cancer Additional Family Medical History / Comment(s): breast Father Family Medical History: Cancer Additional Family Medical History / Comment(s): throat Medications and Allergies Home Medications Medication Instructions Recorded Confirmed Type Apixaban [Eliquis] 5 mg PO BID 03/23/16 01/25/23 History Metoprolol Succinate [Toprol XL] 100 mg PO HS 03/23/16 01/25/23 History Nitroglycerin Sl Tabs [Nitrostat] 0.4 mg SUBLINGUAL Q5M PRN 03/23/16 01/25/23 History Omeprazole [PriLOSEC] 20 mg PO AC-BID 03/23/16 01/25/23 History Magnesium Oxide [Magnesium] 500 tab PO DAILY 01/16/23 01/25/23 History Metoprolol Succinate (ER) [Toprol 50 mg PO DAILY 01/16/23 01/25/23 History Xl] HYDROcodone/APAP 7.5-325MG [[place] 1 - 2 tab PO Q6HR PRN #32 tab 01/23/23 01/25/23 Rx 7.5-325] Ondansetron Odt [Zofran Odt] 4 mg PO Q8HR PRN #14 tab 01/23/23 01/25/23 Rx Sennosides-Docusate Sodium 1 tab PO BID #60 tablet 01/23/23 01/25/23 Rx [Senokot-S] Atorvastatin [Lipitor] 80 mg PO HS 01/25/23 01/25/23 History Cholecalciferol [Vitamin D3 (25 50 mcg PO DAILY 01/25/23 01/25/23 History Mcg = 1000 Iu)] Fluocinonide 0.05% Solution 1 applic TOPICAL HS PRN 01/25/23 01/25/23 History Furosemide [Lasix] 20 mg PO DAILY 01/25/23 01/25/23 History Ketoconazole 2% Shampoo [Nizoral] 1 applic TOPICAL DIRECTED PRN 01/25/23 01/25/23 History Ubidecarenone [Coenzyme Q10] 200 mg PO DAILY 01/25/23 01/25/23 History Valsartan/Hydrochlorothiazide 1 tab PO DAILY 01/25/23 01/25/23 History [Valsartan-Hctz 320-25 mg Tab] calcium polycarbophiL [Fibercon] 625 mg PO DAILY 01/25/23 01/25/23 History Allergies Allergy/AdvReac Type Severity Reaction Status Date / Time No Known Allergies Allergy Verified 01/25/23 13:44 Physical Exam Vitals: Vital Signs Temp Pulse Pulse Resp BP BP Pulse Ox 01/26/23 00:50 109 H 30 H 86/50 93 L 01/26/23 00:40 112 H 55 H 98/53 94 L 01/26/23 00:30 123 H 30 H 106/61 93 L 01/26/23 00:20 96 28 H 106/61 93 L 01/26/23 00:10 109 H 8 L 104/61 94 L 01/26/23 00:00 98.4 F 116 H 13 116/48 94 L 01/25/23 23:50 130 H 25 H 107/70 94 L 01/25/23 23:40 134 H 58 H 96/65 94 L 01/25/23 23:30 138 H 30 H 117/71 93 L 01/25/23 23:20 151 H 44 H 117/71 95 01/25/23 23:12 144 H 16 101/61 94 L 01/25/23 23:10 22 101/61 92 L 01/25/23 23:00 97.9 F 149 H 33 H 126/65 95 01/25/23 22:50 16 126/65 93 L 01/25/23 22:40 154 H 29 H 114/91 91 L 01/25/23 22:30 158 H 8 L 115/70 92 L 01/25/23 22:20 140 H 13 132/78 93 L 01/25/23 22:16 151 H 23 01/25/23 22:00 164 H 18 88/56 96 01/25/23 20:48 97.9 F 148 H 18 85/56 95 01/25/23 20:11 144 H 18 109/78 95 01/25/23 20:10 141 H 24 109/78 94 L 01/25/23 20:00 152 H 14 110/79 95 01/25/23 19:50 144 H 18 110/79 95 01/25/23 19:40 147 H 25 H 106/66 92 L 01/25/23 19:30 152 H 24 100/69 94 L 01/25/23 19:26 144 H 18 100/61 94 L 01/25/23 19:20 151 H 27 H 100/69 95 01/25/23 19:10 142 H 22 126/84 95 01/25/23 19:00 142 H 20 123/87 96 01/25/23 18:50 146 H 26 H 123/87 95 01/25/23 18:40 154 H 25 H 132/94 95 01/25/23 18:36 148 H 18 132/94 94 L 01/25/23 18:30 151 H 27 H 93/65 94 L 01/25/23 18:20 140 H 25 H 93/65 94 L 01/25/23 18:10 141 H 25 H 100/59 93 L 01/25/23 18:00 141 H 25 H 101/62 93 L 01/25/23 17:50 149 H 25 H 101/62 93 L 01/25/23 17:40 147 H 20 109/78 92 L 01/25/23 17:31 146 H 109/78 96 01/25/23 17:30 141 H 29 H 145/93 97 01/25/23 17:20 147 H 9 L 145/93 95 01/25/23 17:10 144 H 31 H 135/85 95 01/25/23 17:00 20 97 01/25/23 16:40 152 H 29 H 143/115 96 01/25/23 16:30 158 H 31 H 96/72 96 01/25/23 16:20 152 H 16 96/72 96 01/25/23 16:11 140 H 18 81/63 95 01/25/23 16:10 135 H 18 81/63 96 01/25/23 16:00 154 H 17 93/74 97 01/25/23 15:50 149 H 21 93/74 96 01/25/23 15:45 144 H 18 93/74 96 01/25/23 15:40 154 H 26 H 84/69 98 01/25/23 15:34 146 H 18 84/69 98 01/25/23 15:30 130 H 23 105/92 96 01/25/23 15:20 22 119/101 97 01/25/23 15:10 13 117/86 96 01/25/23 15:00 156 H 21 87/62 97 01/25/23 14:50 154 H 25 H 87/62 97 01/25/23 14:45 152 H 20 87/62 96 01/25/23 14:40 149 H 14 96/73 96 01/25/23 14:30 144 H 11 L 130/72 96 01/25/23 14:20 131 H 11 L 130/72 97 01/25/23 14:15 154 H 18 130/72 96 01/25/23 14:10 154 H 154 H 25 H 135/86 01/25/23 14:04 160 H 18 135/86 96 01/25/23 14:00 156 H 25 H 112/73 97 01/25/23 13:50 161 H 23 121/109 01/25/23 13:48 161 H 112/71 95 01/25/23 13:40 160 H 22 128/85 01/25/23 13:30 156 H 27 H 124/90 01/25/23 13:26 114/102 01/25/23 13:14 98.4 F 87 20 76/43 95 Intake and Output 01/25/23 01/25/23 01/26/23 14:59 22:59 06:59 Intake Total 43.167 Output Total 200 Balance 43.167 -200 Intake: Intake, IV Titration 43.167 Amount Diltiazem 125 mg In 43.167 Sodium Chloride 0.9% 100 ml @ 10 MG/HR 10 mls/hr IV .[id number] [facility] Rx#: [id number] Output: Urine 200 Other: Weight 81.647 kg 81.647 kg GENERAL EXAM: Alert, 77-year-old white male appearing stated age , comfortable in no apparent distress. HEAD: Normocephalic and atraumatic EYES: Normal reaction of pupils, equal size. NOSE: Clear with pink turbinates. THROAT: No erythema or exudates. NECK: No masses, no JVD. CHEST: No chest wall deformity. LUNGS: Equal air entry with no crackles, wheeze, rhonchi or dullness. On 2 L per minute nasal cannula. No conversational dyspnea or accessory muscle use.. CVS: S1 and S2 normal with no audible murmur, irregular rhythm. No extra heart sounds. Heart rate is 130 beats per minutes. ABDOMEN: No hepatosplenomegaly, active bowel sounds, no guarding or rigidity. SPINE: No scoliosis or deformity SKIN: No rashes CENTRAL NERVOUS SYSTEM: No focal deficits, tone is normal in all 4 extremities. EXTREMITIES: There is no peripheral edema, clubbing, or cyanosis. Peripheral pulses are intact. Left knee surgical dressing is clean and dry. There is a left knee nerve block in place. Results - Laboratory Findings CBC and BMP: 01/25/23 13:39 01/25/23 13:39 PT/INR, D-dimer PT 10.6 sec (9.0-12.0) 01/25/23 13:39 INR 1.0 (<1.2) 01/25/23 13:39 Abnormal lab findings: Abnormal Labs 01/25/23 01/25/23 01/25/23 13:39 13:39 13:39 WBC 14.1 H Hct 38.8 L Neutrophils # 10.4 H Monocytes # 1.4 H BUN 21 H Glucose 100 H POC Glucose (mg/dL) Troponin I 0.055 H* 01/25/23 01/25/23 01/25/23 16:28 19:47 22:16 WBC Hct Neutrophils # Monocytes # BUN Glucose POC Glucose (mg/dL) 182 H Troponin I 0.068 H* 0.063 H* - Diagnostic Findings Chest x-ray: image reviewed CT scan - chest: image reviewed Assessment and Plan Assessment: Atrial fibrillation with rapid ventricular rate. Patient has history of paroxysmal atrial fibrillation, prior ablation, pacemaker, and is normally anticoagulated on Eliquis. Cardizem is currently infusing for rate control. Hypotension, related to above, improved. Acute hypoxemic respiratory failure, currently on 2 L/m nasal cannula Elevated troponins, likely related to supply/demand mismatch Leukocytosis, likely reactive from surgery Recent left total knee arthroplasty, status post operative day #3. Postsurgical dressing is clean and dry. There is a left knee nerve block Right middle lobe pulmonary nodule, measuring 7 mm, can be followed up on outpatient basis Coronary artery disease Essential hypertension Hyperlipidemia Osteoarthritis Obstructive sleep apnea. GERD without esophagitis Remote ex-smoker Plan: Patient's medications, labs, and imaging were reviewed Continue supplemental oxygen Continue Cardizem infusion for rate control, may consider amiodarone if hypotensive. At this point, no need for cardioversion or vasopressors Eliquis has been restarted Cardiology is consulted Orthopedic surgeon was consulted to manage postoperative knee Follow up outpatient in regards to his 7 mm pulmonary nodule, recommend follow- up CT in 3-6 months Encourage incentive spirometer Protonix for GI prophylaxis SCDs are on We will continue to follow and make recommendations while in the intensive care unit I have personally seen and examined the patient, performed the documentation and the assessment and plan as written. Number of minutes spent on the visit:20 Time with Patient: Greater than 30
[2023-01-26 05:37] LABS: Basophils % (A) 0 %; Eosinophils # (A) 0.2 k/uL (0-0.7); Eosinophils % (A) 2 %; HCT 33.1 % (39.0-53.0); HGB 11.1 gm/dL (13.0-17.5); Lymphocytes # (A) 1.8 k/uL (1.0-4.8); Lymphocytes % (A) 19 %; MCH 29.6 pg (25.0-35.0); MCHC 33.7 g/dL (31.0-37.0); MCV 87.6 fL (80.0-100.0); Mean Platelet Volume 8.2; Monocytes # (A) 0.7 k/uL (0-1.0); Monocytes % (A) 7 %; Neutrophils # (A) 6.4 k/uL (1.3-7.7); Neutrophils % (A) 69 %; Platelet Count 161 k/uL (150-450); RBC 3.77 m/uL (4.30-5.90); RDW 14.8 % (11.5-15.5); WBC 9.3 k/uL (3.8-10.6)
[2023-01-26 05:50] LABS: African American GFR (CKD) >90 (>60 ml/min/1.73 sqM); Anion Gap 6 mmol/L; Blood Urea Nitrogen 15 mg/dL (9-20); Calcium 8.1 mg/dL (8.4-10.2); Carbon Dioxide 27 mmol/L (22-30); Chloride 104 mmol/L (98-107); Glucose 105 mg/dL (74-99); Non-African American GFR(CKD) 88 (>60 ml/min/1.73 sqM); Potassium 3.5 mmol/L (3.5-5.1); Sodium 137 mmol/L (137-145)
[2023-01-26] MEDS: DILTIAZEM 125 MG in SODIUM CHLORIDE 0.9% 100 ML IV SCH ×3 (06:26→15:00)
[2023-01-26] MEDS ORDERED: Potassium Replacement Protocol 1 EACH MISC MISCELLANE PRN (07:28)
[2023-01-26] MEDS: NOREPINEPHRINE 4 MG in SODIUM CHLORIDE 0.9% 250 ML IV SCH (09:00)
[2023-01-26] MEDS: POTASSIUM CHLORIDE ER 20 MEQ TAB.ER PO SCH ×2 (09:01→10:12)
[2023-01-26] MEDS: SENNOSIDES 8.6 MG TAB PO SCH (09:04)
[2023-01-26] MEDS: PANTOPRAZOLE 40 MG/10 ML VIAL IV SCH (09:04)
[2023-01-26] MEDS: APIXABAN 5 MG TAB PO SCH ×2 (09:04→20:25)
--- NOTE | 2023-01-26 09:38 | P.CNOR ---
History of Present Illness - [facility] Consult date: 01/26/23 Consult reason: other (Post op TKA) History of present illness: This is a 77-year-old male who is status post total left knee arthroplasty on 01/23/2023. The patient was discharged to home in good condition on 01/24/2023. On 01/25/2023 the patient began experiencing some lightheadedness. He was evaluated by the home physical therapist and his blood pressure was found to be very low and his heart rate was approximately 158. The patient does have a history of atrial fibrillation and has had an ablation in the past. He was on Eliquis preoperatively which was held for 2 days prior surgery and resumed on postoperat ivelisse day #1. The home care nurse called our office yesterday with his vital signs and he was instructed to go immediately to the emergency department. He was admitted through the ER to the ICU. We were consulted for orthopedic follow-up of the left knee. Past Medical History Past Medical History: Coronary Artery Disease (CAD), GERD/Reflux, Hype rlipidemia, Hypertension, Osteoarthritis (OA), Sleep Apnea/CPAP/BIPAP Additional Past Medical History / Comment(s): degenerative discs in his back, and pre cancerous skin lesions , SEE DR BARRETO'S HISTORY AND PHYSICAL FOR CARDIAC HISTORY, C PAP MACHINE, GI BLEED History of Any Multi-Drug Resistant Organisms: None Reported Past Surgical History: Ablation, Heart Catheterization With Stent, Hernia Repair, Joint Replacement, Pacemaker Additional Past Surgical History / Comment(s): inguinal hernia, CARDIAC ABLATION, HEART CATH WITH STENT X2 , lt knee Past Anesthesia/Blood Transfusion Reactions: Previous Problems w/ Anesthesia, Postoperative Nausea & Vomiting (PONV) Date of Last Stent Placement:: 2019 Type of Cardiac Device: Permanent Pacemaker Device Placement Date:: 2010 Past Psychological History: No Psychological Hx Reported Smoking Status: Former smoker Past Alcohol Use History: None Reported Additional Past Alcohol Use History / Comment(s): STARTED SMOKING AT AGE 14 QUIT 1992 SMOKED 1PPD Past Drug Use History: None Reported - Past Family History Mother Family Medical History: Cancer Additional Family Medical History / Comment(s): breast and skin Sister(s) Family Medical History: Cancer Additional Family Medical History / Comment(s): breast Father Family Medical History: Cancer Additional Family Medical History / Comment(s): throat Medications and Allergies Home Medications Medication Instructions Recorded Confirmed Type Apixaban [Eliquis] 5 mg PO BID 03/23/16 01/25/23 History Metoprolol Succinate [Toprol XL] 100 mg PO HS 03/23/16 01/25/23 History Nitroglycerin Sl Tabs [Nitrostat] 0.4 mg SUBLINGUAL Q5M PRN 03/23/16 01/25/23 History Omeprazole [PriLOSEC] 20 mg PO AC-BID 03/23/16 01/25/23 History Magnesium Oxide [Magnesium] 500 tab PO DAILY 01/16/23 01/25/23 History Metoprolol Succinate (ER) [Toprol 50 mg PO DAILY 01/16/23 01/25/23 History Xl] HYDROcodone/APAP 7.5-325MG [[place] 1 - 2 tab PO Q6HR PRN #32 tab 01/23/23 01/25/23 Rx 7.5-325] Ondansetron Odt [Zofran Odt] 4 mg PO Q8HR PRN #14 tab 01/23/23 01/25/23 Rx Sennosides-Docusate Sodium 1 tab PO BID #60 tablet 01/23/23 01/25/23 Rx [Senokot-S] Atorvastatin [Lipitor] 80 mg PO HS 01/25/23 01/25/23 History Cholecalciferol [Vitamin D3 (25 50 mcg PO DAILY 01/25/23 01/25/23 History Mcg = 1000 Iu)] Fluocinonide 0.05% Solution 1 applic TOPICAL HS PRN 01/25/23 01/25/23 History Furosemide [Lasix] 20 mg PO DAILY 01/25/23 01/25/23 History Ketoconazole 2% Shampoo [Nizoral] 1 applic TOPICAL DIRECTED PRN 01/25/23 01/25/23 History Ubidecarenone [Coenzyme Q10] 200 mg PO DAILY 01/25/23 01/25/23 History Valsartan/Hydrochlorothiazide 1 tab PO DAILY 01/25/23 01/25/23 History [Valsartan-Hctz 320-25 mg Tab] calcium polycarbophiL [Fibercon] 625 mg PO DAILY 01/25/23 01/25/23 History Allergies Allergy/AdvReac Type Severity Reaction Status Date / Time No Known Allergies Allergy Verified 01/25/23 13:44 Physical Examination This is a pleasant 77-year-old male in no acute distress. He is fairly anxious this morning. He is lying in bed and appears to be fairly comfortable. O2 nasal cannula is in place. Dressing is clean, dry and intact. Exam of the left lower extremity reveals that his Optifoam dressing is intact. The pain pump is in place but the ball is empty. He is able to straight leg raise a couple inches off the bed. He is able to flex the knee to 30 degrees on his own in bed. He has full foot and ankle motion without pain. Neurovascular status to the lower extremity is intact. Results - Labs Labs: Abnormal Lab Results - Last 24 Hours (Table) 01/25/23 01/25/23 01/25/23 Range/Units 13:39 13:39 13:39 WBC 14.1 H (3.8-10.6) k/uL RBC (4.30-5.90) m/uL Hgb (13.0-17.5) gm/dL Hct 38.8 L (39.0-53.0) % Neutrophils # 10.4 H (1.3-7.7) k/uL Monocytes # 1.4 H (0-1.0) k/uL BUN 21 H (9-20) mg/dL Glucose 100 H (74-99) mg/dL POC Glucose (mg/dL) (70-110) mg/dL Calcium (8.4-10.2) mg/dL Troponin I 0.055 H* (0.000-0.034) ng/mL 01/25/23 01/25/23 01/25/23 Range/Units 16:28 19:47 22:16 WBC (3.8-10.6) k/uL RBC (4.30-5.90) m/uL Hgb (13.0-17.5) gm/dL Hct (39.0-53.0) % Neutrophils # (1.3-7.7) k/uL Monocytes # (0-1.0) k/uL BUN (9-20) mg/dL Glucose (74-99) mg/dL POC Glucose (mg/dL) 182 H (70-110) mg/dL Calcium (8.4-10.2) mg/dL Troponin I 0.068 H* 0.063 H* (0.000-0.034) ng/mL 01/26/23 01/26/23 Range/Units 05:14 05:14 WBC (3.8-10.6) k/uL RBC 3.77 L (4.30-5.90) m/uL Hgb 11.1 L (13.0-17.5) gm/dL Hct 33.1 L (39.0-53.0) % Neutrophils # (1.3-7.7) k/uL Monocytes # (0-1.0) k/uL BUN (9-20) mg/dL Glucose 105 H (74-99) mg/dL POC Glucose (mg/dL) (70-110) mg/dL Calcium 8.1 L (8.4-10.2) mg/dL Troponin I (0.000-0.034) ng/mL H & H 01/25/23 01/26/23 Range/Units 13:39 05:14 Hgb 13.2 11.1 L (13.0-17.5) gm/dL Hct 38.8 L 33.1 L (39.0-53.0) % Coagulation 01/25/23 Range/Units 13:39 INR 1.0 (<1.2) Result Diagrams: 01/26/23 05:14 01/26/23 05:14 Assessment and Plan (1) Status post total knee replacement, left Current Visit: Yes Status: Acute Code(s): Z96.652 - PRESENCE OF LEFT ARTIFICIAL KNEE JOINT SNOMED Code(s): 1262519009547 (2) Atrial fibrillation with rapid ventricular response Current Visit: Yes Status: Acute Code(s): I48.91 - UNSPECIFIED ATRIAL FIBRILLATION SNOMED Code(s): 614958313826862 Plan: The clinical findings are discussed with the patient. We will have him evaluated by physical therapy when it is safe to do so per cardiology. He is instructed to continue with straight leg raises and ankle pumps when in bed. We will continue to follow.
[2023-01-26] MEDS ORDERED: DEXTROSE 5% IN WATER 250 ML with AMIODARONE 300 MG IV ONE (09:45)
--- NOTE | 2023-01-26 09:57 | P.CRDCN ---
History of Present Illness Consult date: 01/26/23 Consult reason: atrial fibrillation History of present illness: The patient is a 77-year-old male who follows in the office with Dr. Mo. He has a known history of atrial fibrillation with prior ablation with Dr. Gregory. The patient was recently cleared to undergo left total knee arthroplasty. Eliquis was held 2 days prior. Surgery was unremarkable and he was discharged home. When attempting to work with physical therapy yesterday, litzy wesley became dizzy. It was noted that he was hypotensive with elevated heart rate in the 160s. He was in shock to do presented to the emergency room by the orthopedic team. DIAGNOSTICS: EKG shows A. fib with RVR Chest x-ray shows chronic COPD changes and cardiomegaly without acute process Computed tomography scan of the chest shows COPD with mild emphysema, pulmonary arterial hypertension, and coronary calcifications. No pulmonary embolism. Lab data: WBC 9.3, hemoglobin 11.1, hematocrit 33.1, platelet 161, sodium 137, potassium 3.5, BUN 15, creatinine 0.74, magnesium 2.0, AST 40, ALT 24, troponin 0.05, 0.06, 0.06 REVIEW OF SYSTEMS: No fever or chills. No cough or expectoration. No diaphores is. Patient denies headache, dizziness, blurred vision, double vision. Patient denies any stomach discomfort. No nausea, vomiting. No hematochezia. No hematemesis. Denies any black stools or blood in his stools. Denies dysuria or hematuria. No muscle weakness or numbness. No shortness of breath. No palpitations. Mild left lower extremity discomfort PHYSICAL EXAMINATION: This is a 77-year-old male in no apparent distress at the time of my examination. HEENT: Head is atraumatic, normocephalic. Pupils are equal, round. Sclerae anicteric. Conjunctivae are clear. Mucous membranes of the mouth are moist. Neck is supple. There is no jugular venous distention. No carotid bruit is heard. CHEST EXAMINATION: Lungs are clear to auscultation. No chest wall tenderness is noted on palpation or with deep breathing. HEART EXAMINATION: Irregular rate. Notably tachycardic. S1, S2 heard. No murmurs, gallops or rub. ABDOMEN: Soft, nontender. Bowel sounds are heard. No organomegaly noted. EXTREMITIES: 2+ peripheral pulses with no evidence of peripheral edema and no calf tenderness noted. Mild left lower extremity edema. NEUROLOGIC EXAMINATION: Patient is awake, alert and oriented x3. FINAL ASSESSMENT AND PLAN: Atrial fibrillation with RVR 72 hour postop after left total knee arthroplasty Elevated troponin, flat trend History of atrial fibrillation ablation with Dr. Gregory PLAN: Slow 300mg amiodarone bolus Start oral amiodarone Wean off Cardizem drip Consideration for cardioversion Further recommendations will be based on clinical course I am dictating on behalf of Dr Gareth Mo's history/physical and assessment/plan. Past Medical History Past Medical History: Coronary Artery Disease (CAD), GERD/Reflux, Hyperlipidemia, Hypertension, Osteoarthritis (OA), Sleep Apnea/CPAP/BIPAP Additional Past Medical History / Comment(s): degenerative discs in his back, and pre cancerous skin lesions , SEE DR MO'S HISTORY AND PHYSICAL FOR CARDIAC HISTORY, C PAP MACHINE, GI BLEED History of Any Multi-Drug Resistant Organisms: None Reported Past Surgical History: Ablation, Heart Catheterization With Stent, Hernia Repair, Joint Replacement, Pacemaker Additional Past Surgical History / Comment(s): inguinal hernia, CARDIAC ABLATION, HEART CATH WITH STENT X2 , lt knee Past Anesthesia/Blood Transfusion Reactions: Previous Problems w/ Anesthesia, Postoperative Nausea & Vomiting (PONV) Date of Last Stent Placement:: 2019 Type of Cardiac Device: Permanent Pacemaker Device Placement Date:: 2010 Past Psychological History: No Psychological Hx Reported Smoking Status: Former smoker Past Alcohol Use History: None Reported Additional Past Alcohol Use History / Comment(s): STARTED SMOKING AT AGE 14 QUIT 1993 SMOKED 1PPD Past Drug Use History: None Reported - Past Family History Mother Family Medical History: Cancer Additional Family Medical History / Comment(s): breast and skin Sister(s) Family Medical History: Cancer Additional Family Medical History / Comment(s): breast Father Family Medical History: Cancer Additional Family Medical History / Comment(s): throat Medications and Allergies Home Medications Medication Instructions Recorded Confirmed Type Apixaban [Eliquis] 5 mg PO BID 03/23/16 01/25/23 History Metoprolol Succinate [Toprol XL] 100 mg PO HS 03/23/16 01/25/23 History Nitroglycerin Sl Tabs [Nitrostat] 0.4 mg SUBLINGUAL Q5M PRN 03/23/16 01/25/23 History Omeprazole [PriLOSEC] 20 mg PO AC-BID 03/23/16 01/25/23 History Magnesium Oxide [Magnesium] 500 tab PO DAILY 01/16/23 01/25/23 History Metoprolol Succinate (ER) [Toprol 50 mg PO DAILY 01/16/23 01/25/23 History Xl] HYDROcodone/APAP 7.5-325MG [[place] 1 - 2 tab PO Q6HR PRN #32 tab 01/23/23 01/25/23 Rx 7.5-325] Ondansetron Odt [Zofran Odt] 4 mg PO Q8HR PRN #14 tab 01/23/23 01/25/23 Rx Sennosides-Docusate Sodium 1 tab PO BID #60 tablet 01/23/23 01/25/23 Rx [Senokot-S] Atorvastatin [Lipitor] 80 mg PO HS 01/25/23 01/25/23 History Cholecalciferol [Vitamin D3 (25 50 mcg PO DAILY 01/25/23 01/25/23 History Mcg = 1000 Iu)] Fluocinonide 0.05% Solution 1 applic TOPICAL HS PRN 01/25/23 01/25/23 History Furosemide [Lasix] 20 mg PO DAILY 01/25/23 01/25/23 History Ketoconazole 2% Shampoo [Nizoral] 1 applic TOPICAL DIRECTED PRN 01/25/23 01/25/23 History Ubidecarenone [Coenzyme Q10] 200 mg PO DAILY 01/25/23 01/25/23 History Valsartan/Hydrochlorothiazide 1 tab PO DAILY 01/25/23 01/25/23 History [Valsartan-Hctz 320-25 mg Tab] calcium polycarbophiL [Fibercon] 625 mg PO DAILY 01/25/23 01/25/23 History Allergies Allergy/AdvReac Type Severity Reaction Status Date / Time No Known Allergies Allergy Verified 01/25/23 13:44 Physical Exam Vitals: Vital Signs Temp Pulse Pulse Resp BP BP Pulse Ox 01/26/23 09:00 121 H 25 H 126/66 92 L 01/26/23 08:45 145 H 28 H 101/54 92 L 01/26/23 08:30 142 H 93 L 01/26/23 08:15 116 H 106/51 92 L 01/26/23 08:00 137 H 22 93/64 94 L 01/26/23 07:45 126 H 87/53 93 L 01/26/23 07:30 142 H 99/52 92 L 01/26/23 07:15 158 H 93/71 93 L 01/26/23 07:00 154 H 51 H 93/65 94 L 01/26/23 06:45 156 H 39 H 125/78 92 L 01/26/23 06:30 152 H 15 100/78 92 L 01/26/23 06:15 151 H 30 H 100/78 92 L 01/26/23 06:00 141 H 33 H 103/70 93 L 01/26/23 05:45 144 H 66 H 108/82 93 L 01/26/23 05:30 137 H 29 H 100/65 93 L 01/26/23 05:15 131 H 25 H 131/69 94 L 01/26/23 05:00 140 H 24 93 L 01/26/23 04:45 120 H 25 H 118/64 94 L 01/26/23 04:30 114 H 23 108/60 96 01/26/23 04:15 111 H 24 102/59 95 01/26/23 04:00 98.2 F 107 H 26 H 104/58 94 L 01/26/23 03:45 102 H 24 107/66 96 01/26/23 03:30 125 H 26 H 105/58 94 L 01/26/23 03:15 128 H 36 H 105/58 96 01/26/23 03:00 109 H 31 H 119/65 94 L 01/26/23 02:45 147 H 31 H 99/70 94 L 01/26/23 02:30 144 H 19 109/60 94 L 01/26/23 02:15 95 26 H 105/56 95 01/26/23 02:00 96 12 113/64 96 01/26/23 01:45 120 H 14 100/55 96 01/26/23 01:30 100 27 H 107/49 94 L 01/26/23 01:15 95 33 H 110/57 93 L 01/26/23 01:00 101 H 42 H 86/50 96 01/26/23 00:50 109 H 30 H 86/50 93 L 01/26/23 00:40 112 H 55 H 98/53 94 L 01/26/23 00:30 123 H 30 H 106/61 93 L 01/26/23 00:20 96 28 H 106/61 93 L 01/26/23 00:10 109 H 8 L 104/61 94 L 01/26/23 00:00 98.4 F 116 H 164 H 13 116/48 94 L 01/25/23 23:50 130 H 25 H 107/70 94 L 01/25/23 23:40 134 H 58 H 96/65 94 L 01/25/23 23:30 138 H 30 H 117/71 93 L 01/25/23 23:20 151 H 44 H 117/71 95 01/25/23 23:12 144 H 16 101/61 94 L 01/25/23 23:10 22 101/61 92 L 01/25/23 23:00 97.9 F 149 H 33 H 126/65 95 01/25/23 22:50 16 126/65 93 L 01/25/23 22:40 154 H 29 H 114/91 91 L 01/25/23 22:30 158 H 8 L 115/70 92 L 01/25/23 22:20 140 H 13 132/78 93 L 01/25/23 22:16 151 H 23 01/25/23 22:00 164 H 18 88/56 96 01/25/23 20:48 97.9 F 148 H 18 85/56 95 01/25/23 20:11 144 H 18 109/78 95 01/25/23 20:10 141 H 24 109/78 94 L 01/25/23 20:00 152 H 14 110/79 95 01/25/23 19:50 144 H 18 110/79 95 01/25/23 19:40 147 H 25 H 106/66 92 L 01/25/23 19:30 152 H 24 100/69 94 L 01/25/23 19:26 144 H 18 100/61 94 L 01/25/23 19:20 151 H 27 H 100/69 95 01/25/23 19:10 142 H 22 126/84 95 01/25/23 19:00 142 H 20 123/87 96 01/25/23 18:50 146 H 26 H 123/87 95 01/25/23 18:40 154 H 25 H 132/94 95 01/25/23 18:36 148 H 18 132/94 94 L 01/25/23 18:30 151 H 27 H 93/65 94 L 01/25/23 18:20 140 H 25 H 93/65 94 L 01/25/23 18:10 141 H 25 H 100/59 93 L 01/25/23 18:00 141 H 25 H 101/62 93 L 01/25/23 17:50 149 H 25 H 101/62 93 L 01/25/23 17:40 147 H 20 109/78 92 L 01/25/23 17:31 146 H 109/78 96 01/25/23 17:30 141 H 29 H 145/93 97 01/25/23 17:20 147 H 9 L 145/93 95 01/25/23 17:10 144 H 31 H 135/85 95 01/25/23 17:00 20 97 01/25/23 16:40 152 H 29 H 143/115 96 01/25/23 16:30 158 H 31 H 96/72 96 01/25/23 16:20 152 H 16 96/72 96 01/25/23 16:11 140 H 18 81/63 95 01/25/23 16:10 135 H 18 81/63 96 01/25/23 16:00 154 H 17 93/74 97 01/25/23 15:50 149 H 21 93/74 96 01/25/23 15:45 144 H 18 93/74 96 01/25/23 15:40 154 H 26 H 84/69 98 01/25/23 15:34 146 H 18 84/69 98 01/25/23 15:30 130 H 23 105/92 96 01/25/23 15:20 22 119/101 97 01/25/23 15:10 13 117/86 96 01/25/23 15:00 156 H 21 87/62 97 01/25/23 14:50 154 H 25 H 87/62 97 01/25/23 14:45 152 H 20 87/62 96 01/25/23 14:40 149 H 14 96/73 96 01/25/23 14:30 144 H 11 L 130/72 96 01/25/23 14:20 131 H 11 L 130/72 97 01/25/23 14:15 154 H 18 130/72 96 01/25/23 14:10 154 H 154 H 25 H 135/86 01/25/23 14:04 160 H 18 135/86 96 01/25/23 14:00 156 H 25 H 112/73 97 01/25/23 13:50 161 H 23 121/109 01/25/23 13:48 161 H 112/71 95 01/25/23 13:40 160 H 22 128/85 01/25/23 13:30 156 H 27 H 124/90 01/25/23 13:26 114/102 01/25/23 13:14 98.4 F 87 20 76/43 95 Intake and Output 01/25/23 01/26/23 01/26/23 22:59 06:59 14:59 Intake Total 43.167 77.667 Output Total 400 0 Balance 43.167 -322.333 0 Intake: Intake, IV Titration 43.167 77.667 Amount Diltiazem 125 mg In 43.167 77.667 Sodium Chloride 0.9% 100 ml @ 10 MG/HR 10 mls/hr IV .[id number] [facility] Rx#: [id number] Output: Urine 400 0 Other: Voiding Method Urinal Weight 81.647 kg 87.9 kg Results 01/26/23 05:14 01/26/23 05:14 Cardiac Enzymes 01/25/23 01/25/23 01/25/23 Range/Units 13:39 13:39 16:28 AST 40 (17-59) U/L Troponin I 0.055 H* 0.068 H* (0.000-0.034) ng/mL 01/25/23 Range/Units 19:47 AST (17-59) U/L Troponin I 0.063 H* (0.000-0.034) ng/mL Coagulation 01/25/23 Range/Units 13:39 PT 10.6 (9.0-12.0) sec APTT 27.0 (22.0-30.0) sec CBC 01/25/23 01/26/23 Range/Units 13:39 05:14 WBC 14.1 H 9.3 (3.8-10.6) k/uL RBC 4.47 3.77 L (4.30-5.90) m/uL Hgb 13.2 11.1 L (13.0-17.5) gm/dL Hct 38.8 L 33.1 L (39.0-53.0) % Plt Count 178 161 (150-450) k/uL Comprehensive Metabolic Panel 01/25/23 01/26/23 Range/Units 13:39 05:14 Sodium 137 137 (137-145) mmol/L Potassium 4.0 3.5 (3.5-5.1) mmol/L Chloride 100 104 (98-107) mmol/L Carbon Dioxide 24 27 (22-30) mmol/L BUN 21 H 15 (9-20) mg/dL Creatinine 1.08 0.74 (0.66-1.25) mg/dL Glucose 100 H 105 H (74-99) mg/dL Calcium 9.6 8.1 L (8.4-10.2) mg/dL AST 40 (17-59) U/L ALT 24 (4-49) U/L Alkaline Phosphatase 85 (38-126) U/L Total Protein 6.8 (6.3-8.2) g/dL Albumin 3.9 (3.5-5.0) g/dL Current Medications Generic Name Dose Route Start Last Admin Trade Name Freq PRN Reason Stop Dose Admin Apixaban 5 mg 01/25/23 22:00 01/26/23 09:04 Apixaban 5 Mg Tab PO 5 mg BID KAM Administration Protocol Aspirin 325 mg 01/26/23 09:00 Aspirin 325 Mg Tab PO DAILY KAM Atorvastatin Calcium 80 mg 01/25/23 22:00 01/25/23 23:05 Atorvastatin 80 Mg Tab PO 80 mg HS KAM Administration Diltiazem HCl 125 mg/ Sodium 125 mls @ 10 mls/hr 01/25/23 14:00 01/26/23 06:26 Chloride IV 15 mg/hr .[id number] KAM 15 mls/hr Administration 10 MG/HR Norepinephrine Bitartrate 4 mg 254 mls @ 9.332 mls/hr 01/25/23 22:45 01/26/23 09:00 / Sodium Chloride IV Not Given .Q24H KAM Protocol 0.03 MCG/KG/MIN Amiodarone HCl 300 mg/ 256 mls @ 128 mls/hr 01/26/23 09:45 Dextrose/Water IV 01/26/23 11:44 .Q2H ONE Protocol Miscellaneous Information 1 each 01/26/23 07:28 Potassium Replacement Protocol 1 Each Misc MISCELLANE DAILY PRN Per Protocol Protocol Naloxone HCl 0.2 mg 01/25/23 22:55 Naloxone 0.4 Mg/Ml 1 Ml Vial IV Q2M PRN Opioid Reversal Nitroglycerin 0.4 mg 01/25/23 15:39 Nitroglycerin Sl Tabs 0.4 Mg Tab SUBLINGUAL Q5M PRN Chest Pain Pantoprazole Sodium 40 mg 01/26/23 09:00 01/26/23 09:04 Pantoprazole 40 Mg/10 Ml Vial IV 40 mg DAILY KAM Administration Senna 8.6 mg 01/26/23 09:00 01/26/23 09:04 Sennosides 8.6 Mg Tab PO 8.6 mg DAILY KAM Administration Intake and Output 01/25/23 01/26/23 01/26/23 22:59 06:59 14:59 Intake Total 43.167 77.667 Output Total 400 0 Balance 43.167 -322.333 0 Intake: Intake, IV Titration 43.167 77.667 Amount Diltiazem 125 mg In 43.167 77.667 Sodium Chloride 0.9% 100 ml @ 10 MG/HR 10 mls/hr IV .[id number] [facility] Rx#: [id number] Output: Urine 400 0 Other: Voiding Method Urinal Weight 81.647 kg 87.9 kg 01/26/23 05:14 01/26/23 05:14
[2023-01-26] MEDS: ASPIRIN 325 MG TAB PO SCH (10:09)
[2023-01-26] MEDS ORDERED: AMIODARONE 200 MG TAB PO SCH ×3 (10:30→21:00)
[2023-01-26 11:00] LABS: Chol/HDL Ratio 2.68 Ratio; LDL Cholesterol,Calculated 43.4 mg/dL (0.0-131.0)
[2023-01-26] MEDS: HYDROcodone/APAP 7.5-325MG 1 EACH TAB PO PRN ×2 (11:04→20:25)
[2023-01-26] MEDS: AMIODARONE 200 MG TAB PO SCH ×2 (15:56→21:46)
[2023-01-26] MEDS: ATORVASTATIN 80 MG TAB PO SCH (20:25)
[2023-01-27] MEDS: NOREPINEPHRINE 4 MG in SODIUM CHLORIDE 0.9% 250 ML IV SCH (03:24)
[2023-01-27] MEDS: DILTIAZEM 125 MG in SODIUM CHLORIDE 0.9% 100 ML IV SCH (03:25)
[2023-01-27 05:19] LABS: Basophils % (A) 1 %; Eosinophils # (A) 0.2 k/uL (0-0.7); Eosinophils % (A) 2 %; HCT 31.2 % (39.0-53.0); HGB 10.7 gm/dL (13.0-17.5); Lymphocytes # (A) 1.5 k/uL (1.0-4.8); Lymphocytes % (A) 18 %; MCH 30.1 pg (25.0-35.0); MCHC 34.1 g/dL (31.0-37.0); MCV 88.1 fL (80.0-100.0); Mean Platelet Volume 8.2; Monocytes # (A) 0.7 k/uL (0-1.0); Monocytes % (A) 8 %; Neutrophils # (A) 5.7 k/uL (1.3-7.7); Neutrophils % (A) 69 %; Platelet Count 171 k/uL (150-450); RBC 3.55 m/uL (4.30-5.90); RDW 14.7 % (11.5-15.5); WBC 8.2 k/uL (3.8-10.6)
[2023-01-27 05:36] LABS: African American GFR (CKD) >90 (>60 ml/min/1.73 sqM); Anion Gap 5 mmol/L; Blood Urea Nitrogen 14 mg/dL (9-20); Calcium 8.3 mg/dL (8.4-10.2); Carbon Dioxide 25 mmol/L (22-30); Chloride 105 mmol/L (98-107); Glucose 118 mg/dL (74-99); Non-African American GFR(CKD) >90 (>60 ml/min/1.73 sqM); Potassium 3.9 mmol/L (3.5-5.1); Sodium 135 mmol/L (137-145)
[2023-01-27] MEDS ORDERED: Potassium Replacement Protocol 1 EACH MISC MISCELLANE PRN (05:45)
[2023-01-27] MEDS ORDERED: POTASSIUM CHLORIDE ER 20 MEQ TAB.ER PO SCH (06:00)
[2023-01-27] MEDS: HYDROcodone/APAP 7.5-325MG 1 EACH TAB PO PRN ×2 (06:22→16:15)
[2023-01-27] MEDS: SENNOSIDES 8.6 MG TAB PO SCH (08:15)
[2023-01-27] MEDS: PANTOPRAZOLE 40 MG/10 ML VIAL IV SCH (08:15)
[2023-01-27] MEDS: APIXABAN 5 MG TAB PO SCH ×2 (08:15→21:11)
[2023-01-27] MEDS: AMIODARONE 200 MG TAB PO SCH (08:15)
[2023-01-27] MEDS: polyethylene glycoL 3350 17 GM POWD.PACK PO SCH (08:46)
--- NOTE | 2023-01-27 09:27 | P.PN ---
Subjective Progress Note Date: 01/27/23 Principal diagnosis: Atrial fibrillation with RVR, history of paroxysmal atrial fibrillation I am seeing this patient in new consultation today 01/26/2023 in the ICU for atrial fibrillation with rapid ventricular rate and hypotension. Patient is a 77-year-old white male with past medical history significant for paroxysmal atrial fibrillation normally anticoagulated on Eliquis, previous ablation and pacemaker insertion, coronary artery disease, hyperlipidemia, hypertension, obstructive sleep apnea, and osteoarthritis. Patient recently had a left total knee replacement on January 23, he was discharged home 2 days ago. Apparently, yesterday morning he started to feel lightheaded, and took his blood pressure which was low. His physical therapist safety admin assistant came to his house for rehab, found his heart rate to be elevated, and recommended that he come to the emergency room. On arrival to the emergency room, he was fluid resuscitated with 1.5 L normal saline bolus, and started on Cardizem infusion which is currently at 10 mg per hour. He was originally admitted to the cardiac stepdown unit, but was transferred to the ICU earlier yesterday evening due to hypotensio n. Patient is currently sitting up in bed, on 2 L/m nasal cannula, in no acute distress. Heart rate is currently 130 bpm, and blood pressure is normotensive. He is pretty much asymptomatic at this time. Denies chest pain, heart palpitations, lightheadedness. No need for cardioversion or vasopressors at this time. If the patient does become hypotensive again, recommend switching to amiodarone infusion. He denies any infectious symptoms such as fevers, chills, myalgias, cough, chest pain, hemoptysis. He denies any nausea or vomiting, abdominal pain, diarrhea. He states his last bowel movement was approximately 4 days ago. Denies any genitourinary complaints. There is a postoperative d ressing on the left knee which is clean and dry. There is a left knee nerve block. Chest CTA on arrival was negative for PE. It did show COPD changes, likely some underlying pulmonary hypertension, coronary artery disease with significant calcification within the LAD, patchy opacities at bilateral lung bases, likely atelectasis, and a non-specific 7 mm right middle lobe pulmonary nodule and nonspecific mediastinal and hilar lymphadenopathy which will need to be followed. CBC on arrival showed some leukocytosis with a WBC count of 14.1, hemoglobin 13.2, hematocrit 38.8, platelets 178. BMP was fairly unremarkable. Lactic acid level was 1.7. Troponins are mildly elevated at 0.055, 0.068, and 0.063 respectively. Patient's Eliquis has been restarted. Afebrile. Patient will be monitored in the intensive care unit. Reevaluated today on 01/27/2023, patient remains in the ICU, doing well. He is now in sinus rhythm patient converted to sinus rhythm last night, he is now on oral amiodarone, eliquis, asymptomatic, no shortness of breath no cough no wheezing. He denies any chest pain, remains hemodynamically stable. His amiodarone dose is 400 mg by mouth daily. His CBC is relatively normal today hemoglobin is 10.7 and electrolytes are normal except for low potassium of 3.9 being corrected. Objective - Vital Signs Vital signs: Vital Signs Temp 98.1 F 01/27/23 08:00 Pulse 70 01/27/23 08:00 Resp 12 01/27/23 08:00 BP 122/51 01/27/23 08:00 Pulse Ox 95 01/27/23 08:35 FiO2 Intake & Output 01/26/23 01/27/23 01/27/23 18:59 06:59 18:59 Intake Total 711.75 150 500 Output Total 750 500 150 Balance -38.25 -350 350 Weight 85.8 kg Intake: Intake, IV Titration 116.75 Amount Diltiazem 125 mg In 111.75 Sodium Chloride 0.9% 100 ml @ 10 MG/HR 10 mls/hr IV .[id number] [facility] Rx#: [id number] Diltiazem 125 mg In 5 Sodium Chloride 0.9% 100 ml @ 10 MG/HR 10 mls/hr IV .[id number] [facility] Rx#: [id number] Oral 395 150 500 Blood Product 200 Output: Urine 750 500 150 Other: Voiding Method Urinal Urinal - Exam Physical Exam: Revealed a 77-year-old white male in no distress, on 2 lit nc Head: Atraumatic, normocephalic HEENT:[Neck is supple.] [No neck masses.] [No thyromegaly.] [No JVD.] Chest: [Clear throughout, no crackles, no rhonchi, no wheezes.] Cardiac Exam: [Normal S1 and S2, no S3 gallop, no murmur.] Abdomen: [Soft, nontender, no megaly, no rebound, no guarding, normal bowel sounds.] Extremities: [No clubbing, no edema, no cyanosis.] Neurological Exam: [No focal neurologic deficit.] Alert oriented 3 Psychiatric: Normal mood affect and normal mental status examination. Skin: No rashes - Labs CBC & Chem 7: 01/27/23 04:37 01/27/23 04:37 Labs: Abnormal Lab Results - Last 24 Hours (Table) 01/26/23 01/27/23 01/27/23 Range/Units 05:14 04:37 04:37 RBC 3.55 L (4.30-5.90) m/uL Hgb 10.7 L (13.0-17.5) gm/dL Hct 31.2 L (39.0-53.0) % Sodium 135 L (137-145) mmol/L Glucose 118 H (74-99) mg/dL Calcium 8.3 L (8.4-10.2) mg/dL HDL Cholesterol 38.40 L (40.00-60.00) mg/dL Assessment and Plan Assessment: Impression: Atrial fibrillation with RVR History of paroxysmal atrial fibrillation Hypotension secondary to atrial fibrillation, resolved 7 mm nodule in the right middle lobe needs outpatient follow-up and repeat CT of the chest in 6 months Coronary arteriosclerosis Benign essential hypertension Dyslipidemia Obstructive sleep apnea syndrome Ex-smoker GERD without esophagitis Recent left total knee arthroplasty postoperative day #4 Recommendation: Continue present medications Transfer patient to a monitor bed on selective Continue oral amiodarone Recommend outpatient follow-up regarding his pulmonary nodule is discharged We will continue to Time with Patient: Less than 30
--- NOTE | 2023-01-27 09:31 | P.PN ---
Subjective Progress Note Date: 01/27/23 The patient is a 77-year-old male who follows in the office with Dr. Mo. He has a known history of atrial fibrillation with prior ablation with Dr. Gregory. The patient was recently cleared to undergo left total knee arthroplasty. Surgery was unremarkable and he was discharged home. He was then noted to have elevated heart rates and hypotension when working with physical therapy, and therefore was admitted to the hospital with A. fib with RVR. He was started on Cardizem drip, which did not convert the patient. He subsequently was given an amiodarone bolus and drip yesterday. The patient co nverted to sinus mechanism overnight. The patient overall feels well. He has some discomfort in his left knee secondary to his orthopedic procedure. GENERAL: Well-appearing, well-nourished and in no acute distress. NECK: Supple without JVD or thyromegaly. LUNGS: Breath sounds clear to auscultation bilaterally. Respiration equal and unlabored. No wheezes, rales or rhonchi. HEART: Regular rate and rhythm without murmurs, rubs or gallops. S1 and S2 heard. EXTREMITIES: Normal range of motion, no edema. No clubbing or cyanosis. Peripheral pulses intact and strong. TELEMETRY: Conversion to sinus mechanism with heart rate in the 70s IMPRESSION: Atrial fibrillation with RVR 72 hour postop after left total knee arthroplasty Elevated troponin, flat trend History of atrial fibrillation ablation with Dr. Gregory PLAN: Continue 400 mg daily amiodarone for 1 month Patient to ambulate around unit on telemetry May be discharged tomorrow if no recurrence in atrial fibrillation I am dictating on behalf of Dr Gareth Mo's history/physical and assessment/plan. Objective - Vital Signs Vital signs: Vital Signs Temp 98.1 F 01/27/23 08:00 Pulse 70 01/27/23 08:00 Resp 12 01/27/23 08:00 BP 122/51 01/27/23 08:00 Pulse Ox 95 01/27/23 08:35 FiO2 Intake & Output 01/26/23 01/27/23 01/27/23 18:59 06:59 18:59 Intake Total 711.75 150 500 Output Total 750 500 150 Balance -38.25 -350 350 Weight 85.8 kg Intake: Intake, IV Titration 116.75 Amount Diltiazem 125 mg In 111.75 Sodium Chloride 0.9% 100 ml @ 10 MG/HR 10 mls/hr IV .[id number] [facility] Rx#: [id number] Diltiazem 125 mg In 5 Sodium Chloride 0.9% 100 ml @ 10 MG/HR 10 mls/hr IV .[id number] [facility] Rx#: [id number] Oral 395 150 500 Blood Product 200 Output: Urine 750 500 150 Other: Voiding Method Urinal Urinal - Labs CBC & Chem 7: 01/27/23 04:37 01/27/23 04:37 Labs: Abnormal Lab Results - Last 24 Hours (Table) 01/26/23 01/27/23 01/27/23 Range/Units 05:14 04:37 04:37 RBC 3.55 L (4.30-5.90) m/uL Hgb 10.7 L (13.0-17.5) gm/dL Hct 31.2 L (39.0-53.0) % Sodium 135 L (137-145) mmol/L Glucose 118 H (74-99) mg/dL Calcium 8.3 L (8.4-10.2) mg/dL HDL Cholesterol 38.40 L (40.00-60.00) mg/dL
[2023-01-27] MEDS: ASPIRIN 325 MG TAB PO SCH (17:25)
[2023-01-27] MEDS: ATORVASTATIN 80 MG TAB PO SCH (21:11)
[2023-01-28] MEDS ORDERED: DILTIAZEM DRIP BOLUS FROM BAG 1 MG SOLN IV ONE (04:36)
[2023-01-28] MEDS: DILTIAZEM 125 MG in SODIUM CHLORIDE 0.9% 100 ML IV SCH ×2 (04:51→10:47)
[2023-01-28] MEDS: NOREPINEPHRINE 4 MG in SODIUM CHLORIDE 0.9% 250 ML IV SCH (05:47)
--- NOTE | 2023-01-28 07:48 | P.HPIM ---
History of Present Illness H&P Date: 01/25/23 Chief Complaint: A. fib with RVR HISTORY OF PRESENT ILLNESS: This is a 77-year-old male with a previous medical history significant for coronary artery disease status post PCI and multiple stent placement, paroxysmal Dr. ziggy bonilla, hypertension and hypertensive cardio vascular disease, hyperlipidemia, GERD with esophagitis, osteoarthritis of the left knee, patient recently underwent a cemented left total knee arthroplasty that was done by Dr. Dillon and he was discharged home the day before yesterday, patient was supposed to get some physical therapy today and he woke up in the morning and his therapist noticed that his heart is quite fast, and his blood pressure was quite low, at that time he was recommended for the patient to be transferred to the emergency department at [facility] for evaluation after he contacted Dr. Dillon and cardiology patient was found to be in atrial fibrillation with rapid response, patient was initially started on Cardizem drip he became somewhat hypotensive, he did receive a liter and half of IV fluid in the form of normal saline, and he was placed on Cardizem drip at 5 mg per hour he was admitted to a telemetry unit, but because of hypotension cariology recommended the patient be transferred to the intensive care unit, his heart rate was in the range of 160, his Cardizem drip was increased and eventually was taken off and he was started on amiodarone. REVIEW OF SYSTEMS: Constitutional: No documented fever, no chills, no night sweats. No weight change. No weakness, fatigue or lethargy. No daytime sleepiness. HEENT: No headache. No blurred vision or double vision, no loss of vision. No loss of Hearing, no ringing in the ears, no dizziness. No nasal drainage or congestion. No epistaxis. No sore throat. Lungs: No shortness of breath, occasional cough, minimal sputum production. No wheezing. Reports dyspnea with activity. Cardiovascular: No chest pain, no lower extremity edema. No palpitations. No paroxysmal nocturnal dyspnea. No orthopnea. No lightheadedness or dizziness. No syncopal episodes. Abdominal: Reports abdominal pain. positive for nausea, vomiting. No diarrhea. positive for constipation. No bloody or tarry stools reports loss of appetite. Genitourinary: No dysuria, increased frequency, urgency. No urinary retention. Musculoskeletal: No myalgias. No muscle weakness, positive for gait dysfunction, no frequent falls. No back pain. No neck pain. left knee pain Integumentary: knee wound ok , no lesions. No rash or pruritus. No unusual bruising. No change in hair or nails. Neurologic: No aphasia. No facial droop. No change in mentation. No head injury. No headache. No paralysis. No paresthesia. Psychiatric: No depression. No anxiety. No mood swings. Endocrine: No abnormal blood sugars. No weight change. PAST MEDICAL HISTORY: CAD post-PCI 1 and 1991 CAD post-PCI 4 in 2013 CAD post-PCI 1 in 2019 Hypertension and hypertensive cardiovascular disease. Hyperlipidemia. GERD with esophagitis. Osteoarthritis. Paroxysmal atrial for prevention. PAST SURGICAL HISTORY: Bilateral inguinal hernia and a medical hernia surgery in 1989 Left heart catheterization with PCI 1 in 1991 Left heart catheterization with PCI 4 in 2013 Left heart catheterization with PCI x1 in 2019 Heart ablation surgery 2010 Pacemaker 2010 Umbilical hernia surgery 2015 EGD with biopsy 03/27/2021. Colonoscopy 2012. Pacemaker 01/2022. SOCIAL HISTORY: Patient used to smoke about pack every day since was 15-year-old he started smoking 06/19/1964 and he quit 40 years later, he denies any alcohol ingestion, he denies any drugs or abuse. FAMILY HISTORY: Father at age of 50 from throat cancer and he was heavy smoker, mother at age of 95 she had a history of congestive heart failure and had history of CABG 5 and breast cancer, patient had 3 brothers one at the age of 58 from chronic kidney disease, one is alive 89-year-old with Alzheimer dementia and 168 with no health issues, patient has one sister 81-year-old with history of CAD PAD and had breast cancer, patient has 2 daughters healthy PHYSICAL EXAMINATION: General: 77-year-old male laying down in bed in no respiratory distress per HEENT: Head is atraumatic, normocephalic, pupils were equal round reactive to light and recommendation, extraocular muscle movement were intact, sclera nonicteric, conjunctivae were pale, mucous membranes of the mouth are somewhat dry. Neck: Supple, no JVP, normal carotid upstroke bilaterally, no lymphadenopathy. Chest: Decreased breath sounds at the bases, few rhonchi, no expiratory wheezes wheezes, no chest wall tenderness, no intercostal retractions. Heart: First heart sound is normal, second heart sound is normal tachycardic irregularly irregular there is permanent pacemaker located in the left upper precordium. Abdomen: Soft, nontender, nondistended, positive bowel sounds, there is no hepatosplenomegaly Extremities: There is no edema no calf tenderness DP +2 bilaterally. Neurologic examination: Patient is awake alert and oriented X 3 cranial nerves II-12 appear grossly intact, muscle power were 5 out of 5 in upper extremities and 5 out of 5 in bilateral lower extremities, deep tendon reflexes normal bilaterally. ASSESSMENT AND PLAN: 1. Atrial fibrillation with rapid ventricular response. Patient was started on Cardizem drip and titrate for heart control, continue telemetry, cardiology consultation, continue Eliquis 5 mg orally twice every day. Cardiac enzymes were slightly elevated likely related to type II [place]. 2. Type II [place] due to demand supply issues. Continue patient on atorvastatin 80 mg daily, patient has been off beta hung due to hypotension. 3. Hypertension and hypertensive cardio vascular disease currently hypotensive due to significant tachycardia patient did receive one and half liters nasal cannula, monitor the patient closely in the intensive care unit. 4. Mixed hyperlipidemia. Continue patient on atorvastatin 80 mg once every day. Monitor lipid panel, LDL 55-70. 5. Paroxysmal atrial fibrillation post-ablation continue Cardizem drip for as indicated by cardiology continue patient on Eliquis 5 mg po bid 6. Recent left cemented total knee arthroplasty. Physical therapy consultation and orthopedic consultation increase activity as indicated. 7. Constipation. Start the patient on senna as well as MiraLAX monitor the patient very closely. 8. DVT prophylaxis. Continue patient on Eliquis 5 mg po bid. 9. GI prophylaxis Continue patient on Protonix 40 mg IV push every 24 hours . 10. Admit to inpatient. Estimate a length of stay 2 midnights per 11. Patient is full code. Past Medical History Past Medical History: Coronary Artery Disease (CAD), GERD/Reflux, Hyperlipidemia, Hypertension, Osteoarthritis (OA), Sleep Apnea/CPAP/BIPAP Additional Past Medical History / Comment(s): degenerative discs in his back, and pre cancerous skin lesions , SEE DR BARRETO'S HISTORY AND PHYSICAL FOR CARDIAC HISTORY, C PAP MACHINE, GI BLEED History of Any Multi-Drug Resistant Organisms: None Reported Past Surgical History: Ablation, Heart Catheterization With Stent, Hernia Repair, Joint Replacement, Pacemaker Additional Past Surgical History / Comment(s): inguinal hernia, CARDIAC ABLATION, HEART CATH WITH STENT X2 , lt knee Past Anesthesia/Blood Transfusion Reactions: Previous Problems w/ Anesthesia, Postoperative Nausea & Vomiting (PONV) Date of Last Stent Placement:: 2019 Type of Cardiac Device: Permanent Pacemaker Device Placement Date:: 2010 Past Psychological History: No Psychological Hx Reported Smoking Status: Former smoker Past Alcohol Use History: None Reported Additional Past Alcohol Use History / Comment(s): STARTED SMOKING AT AGE 14 QUIT 1992 SMOKED 1PPD Past Drug Use History: None Reported - Past Family History Mother Family Medical History: Cancer Additional Family Medical History / Comment(s): breast and skin Sister(s) Family Medical History: Cancer Additional Family Medical History / Comment(s): breast Father Family Medical History: Cancer Additional Family Medical History / Comment(s): throat Medications and Allergies Home Medications Medication Instructions Recorded Confirmed Type Apixaban [Eliquis] 5 mg PO BID 03/23/16 01/25/23 History Metoprolol Succinate [Toprol XL] 100 mg PO HS 03/23/16 01/25/23 History Nitroglycerin Sl Tabs [Nitrostat] 0.4 mg SUBLINGUAL Q5M PRN 03/23/16 01/25/23 History Omeprazole [PriLOSEC] 20 mg PO AC-BID 03/23/16 01/25/23 History Magnesium Oxide [Magnesium] 500 tab PO DAILY 01/16/23 01/25/23 History Metoprolol Succinate (ER) [Toprol 50 mg PO DAILY 01/16/23 01/25/23 History Xl] HYDROcodone/APAP 7.5-325MG [Blair 1 - 2 tab PO Q6HR PRN #32 tab 01/23/2303/11 Rx 7.5-325] Ondansetron Odt [Zofran Odt] 4 mg PO Q8HR PRN #14 tab 01/23/23 01/25/23 Rx Sennosides-Docusate Sodium 1 tab PO BID #60 tablet 01/23/23 01/25/23 Rx [Senokot-S] Atorvastatin [Lipitor] 80 mg PO HS 01/25/23 01/25/23 History Cholecalciferol [Vitamin D3 (25 50 mcg PO DAILY 01/25/23 01/25/23 History Mcg = 1000 Iu)] Fluocinonide 0.05% Solution 1 applic TOPICAL HS PRN 01/25/23 01/25/23 History Furosemide [Lasix] 20 mg PO DAILY 01/25/23 01/25/23 History Ketoconazole 2% Shampoo [Nizoral] 1 applic TOPICAL DIRECTED PRN 01/25/23 01/25/23 History Ubidecarenone [Coenzyme Q10] 200 mg PO DAILY 01/25/23 01/25/23 History Valsartan/Hydrochlorothiazide 1 tab PO DAILY 01/25/23 01/25/23 History [Valsartan-Hctz 320-25 mg Tab] calcium polycarbophiL [Fibercon] 625 mg PO DAILY 01/25/23 01/25/23 History Allergies Allergy/AdvReac Type Severity Reaction Status Date / Time No Known Allergies Allergy Verified 01/25/23 13:44 Physical Exam Vitals: Vital Signs Temp Pulse Pulse Resp BP BP Pulse Ox 01/28/23 05:30 150/72 01/28/23 05:00 100/66 01/28/23 03:41 98.5 F 83 16 159/79 93 L 01/27/23 23:14 98.6 F 86 16 155/74 93 L 01/27/23 20:00 97.7 F 84 16 170/71 98 01/27/23 16:00 97.8 F 83 16 156/69 96 01/27/23 14:00 70 22 122/59 01/27/23 13:00 70 19 122/59 97 01/27/23 12:00 97.8 F 71 19 122/59 97 01/27/23 11:00 76 14 122/59 97 01/27/23 10:00 68 14 141/66 01/27/23 09:00 67 20 142/61 95 01/27/23 08:35 95 01/27/23 08:00 98.1 F 70 12 122/51 95 Intake and Output 01/27/23 01/28/23 01/28/23 22:59 06:59 14:59 Intake Total 480 Output Total 225 570 Balance 255 -570 Intake: Oral 480 Output: Urine 225 570 Other: Voiding Method Urinal Urinal # Voids 1 Results CBC & Chem 7: 01/27/23 04:37 01/27/23 04:37 Thrombosis Risk Factor Assmnt - Choose All That Apply Any of the Below Risk Factors Present?: Yes Each Risk Factor Represents 2 Points: Major surgery Each Risk Factor Represents 3 Points: Age 75 years or older Thrombosis Risk Factor Assessment Total Risk Factor Score: 5 Thrombosis Risk Factor Assessment Level: High Risk
[2023-01-28] MEDS: APIXABAN 5 MG TAB PO SCH ×2 (08:33→19:53)
[2023-01-28] MEDS: SENNOSIDES 8.6 MG TAB PO SCH (08:33)
[2023-01-28] MEDS: PANTOPRAZOLE 40 MG/10 ML VIAL IV SCH (08:34)
[2023-01-28] MEDS: polyethylene glycoL 3350 17 GM POWD.PACK PO SCH (08:34)
[2023-01-28] MEDS: AMIODARONE 200 MG TAB PO SCH ×2 (08:38→19:53)
[2023-01-28] MEDS: METOPROLOL TARTRATE 50 MG TAB PO SCH ×2 (08:42→19:53)
[2023-01-28] MEDS ORDERED: AMIODARONE 200 MG TAB PO SCH (09:00)
--- NOTE | 2023-01-28 10:07 | P.PN ---
Subjective Progress Note Date: 01/28/23 Principal diagnosis: Atrial fibrillation with RVR, history of paroxysmal atrial fibrillation I am seeing this patient in new consultation today 01/26/2023 in the ICU for atrial fibrillation with rapid ventricular rate and hypotension. Patient is a 77-year-old white male with past medical history significant for paroxysmal atrial fibrillation normally anticoagulated on Eliquis, previous ablation and pacemaker insertion, coronary artery disease, hyperlipidemia, hypertension, obstructive sleep apnea, and osteoarthritis. Patient recently had a left total knee replacement on January 23, he was discharged home 2 days ago. Apparently, yesterday morning he started to feel lightheaded, and took his blood pressure which was low. His physical therapist preschool assistant principal came to his house for rehab, found his heart rate to be elevated, and recommended that he come to the emergency room. On arrival to the emergency room, he was fluid resuscitated with 1.5 L normal saline bolus, and started on Cardizem infusion which is currently at 10 mg per hour. He was originally admitted to the cardiac stepdown unit, but was transferred to the ICU earlier yesterday evening due to hypotensio n. Patient is currently sitting up in bed, on 2 L/m nasal cannula, in no acute distress. Heart rate is currently 130 bpm, and blood pressure is normotensive. He is pretty much asymptomatic at this time. Denies chest pain, heart palpitations, lightheadedness. No need for cardioversion or vasopressors at this time. If the patient does become hypotensive again, recommend switching to amiodarone infusion. He denies any infectious symptoms such as fevers, chills, myalgias, cough, chest pain, hemoptysis. He denies any nausea or vomiting, abdominal pain, diarrhea. He states his last bowel movement was approximately 4 days ago. Denies any genitourinary complaints. There is a postoperative d ressing on the left knee which is clean and dry. There is a left knee nerve block. Chest CTA on arrival was negative for PE. It did show COPD changes, likely some underlying pulmonary hypertension, coronary artery disease with significant calcification within the LAD, patchy opacities at bilateral lung bases, likely atelectasis, and a non-specific 7 mm right middle lobe pulmonary nodule and nonspecific mediastinal and hilar lymphadenopathy which will need to be followed. CBC on arrival showed some leukocytosis with a WBC count of 14.1, hemoglobin 13.2, hematocrit 38.8, platelets 178. BMP was fairly unremarkable. Lactic acid level was 1.7. Troponins are mildly elevated at 0.055, 0.068, and 0.063 respectively. Patient's Eliquis has been restarted. Afebrile. Patient will be monitored in the intensive care unit. Reevaluated today on 01/27/2023, patient remains in the ICU, doing well. He is now in sinus rhythm patient converted to sinus rhythm last night, he is now on oral amiodarone, eliquis, asymptomatic, no shortness of breath no cough no wheezing. He denies any chest pain, remains hemodynamically stable. His amiodarone dose is 400 mg by mouth daily. His CBC is relatively normal today hemoglobin is 10.7 and electrolytes are normal except for low potassium of 3.9 being corrected. Reevaluated today on 01/28/2023, patient is now on the cardiac floor, back in atrial fibrillation with RVR, patient is on a higher dose of amiodarone 400 mg by mouth twice a day he is on metoprolol, and Cardizem 10 mg per hour was added. Patient does not seem to be in any distress, he is being followed by cardiology, no cough no wheezing no shortness of breath and no chest pain. Objective - Vital Signs Vital signs: Vital Signs Temp 98.5 F 01/28/23 03:41 Pulse 152 H 01/28/23 08:00 Resp 16 01/28/23 08:00 BP 113/74 01/28/23 08:00 Pulse Ox 94 L 01/28/23 08:00 FiO2 Intake & Output 01/27/23 01/28/23 01/28/23 18:59 06:59 18:59 Intake Total 1530 0 Output Total 495 795 Balance 1035 -795 Intake: Oral 1530 0 Output: Urine 495 795 Other: Voiding Method Urinal Urinal # Voids 1 # Bowel Movements 1 - Exam Physical Exam: Revealed a 77-year-old white male in no distress, on room air Head: Atraumatic, normocephalic HEENT:[Neck is supple.] [No neck masses.] [No thyromegaly.] [No JVD.] Chest: [Clear throughout, no crackles, no rhonchi, no wheezes.] Cardiac Exam: Irregular irregular rhythm [Normal S1 and S2, no S3 gallop, no murmur.] Abdomen: [Soft, nontender, no megaly, no rebound, no guarding, normal bowel sounds.] Extremities: [No clubbing, no edema, no cyanosis.] Neurological Exam: [No focal neurologic deficit.] Alert oriented 3 Psychiatric: Normal mood affect and normal mental status examination. Skin: No rashes - Labs CBC & Chem 7: 01/27/23 04:37 01/27/23 04:37 Assessment and Plan Assessment: Impression: Atrial fibrillation with RVR History of paroxysmal atrial fibrillation Hypotension secondary to atrial fibrillation, resolved 7 mm nodule in the right middle lobe needs outpatient follow-up and repeat CT of the chest in 6 months Coronary arteriosclerosis Benign essential hypertension Dyslipidemia Obstructive sleep apnea syndrome Ex-smoker GERD without esophagitis Recent left total knee arthroplasty postoperative day #5 Recommendation: Continue amiodarone, continue Cardizem, continue metoprolol, cardiology is addressing his atrial fibrillation. Continue present medications Continue incentive spirometry Recommend outpatient follow-up regarding his pulmonary nodule is discharged We will continue to follow Time with Patient: Less than 30
--- NOTE | 2023-01-28 11:37 | P.PN ---
Subjective Progress Note Date: 01/28/23 HISTORY OF PRESENT ILLNESS: This is a 77-year-old male with a previous medical history significant for coronary artery disease status post PCI and multiple stent placement, paroxysmal DrMalena bonilla, hypertension and hypertensive cardio vascular disease, hyperlipidemia, GERD with esophagitis, osteoarthritis of the left knee, patient recently underwent a cemented left total knee arthroplasty that was done by Dr. Dillon and he was discharged home the day before yesterday, patient was supposed to get some physical therapy today and he woke up in the morning and his therapist noticed that his heart is quite fast, and his blood pressure was quite low, at that time he was recommended for the patient to be transferred to the emergency department at [facility] for evaluation after he contacted Dr. Dillon and cardiology patient was found to be in atrial fibrillation with rapid response, patient was initially started on Cardizem drip he became somewhat hypotensive, he did receive a liter and half of IV fluid in the form of normal saline, and he was placed on Cardizem drip at 5 mg per hour he was admitted to a telemetry unit, but because of hypotension cariology recommended the patient be transferred to the intensive care unit, his heart rate was in the range of 160, his Cardizem drip was increased and eventually was taken off and he was started on amiodarone. 01/26: Patient remains in the ICU due to hypotension. He is on Cardizem gtt 15 mg/hr and has received Amiodarone loading dose of 300 mg. He has not required Levophed. Unfortunately, his heart rate is running 129-140, tele is afib. BP 103/64. Dr. Mo will be back to reassess him this afternoon. Patient states he continues to have pain in the left knee. Points has been resumed. Patient has not had a BM but passing flatulence. Patient is reaching 2500 on incentive spirometry. Discharge plan is to return home with [facility]. 01/27: Patient is seen today in the intensive care unit. Yesterday, he received a bolus of amiodarone 300 milligram and subsequently started on oral amiodarone at 400 mg [address] Mo. Cardizem drip is off. He has converted to a sinus rhythm heart rates in the 70s, blood pressure 122/51, pulse ox 95% on 2 L. Patient has been afebrile. Repeat blood work reveals hemoglobin is 10.7. Sodium 135, potassium 3.9, creatinine 0.66. Patient complains of constipation and MiraLAX added. Plan to increase activity, transfer out of the intensive care unit to the cardiac stepdown unit, continue telemetry monitoring. 01/28: patient went to [facility] again and he was started on cardizem drip and Amiodarone was increased to 400 mg po bid and he still off Metoprolol , he continues to have cough with yellowish phlegm we will check CXR and we will start Zosyn 3.375 gr IVPB Q 8 h and will check Procalcitonin as well and we will keep in the hospital for one more day REVIEW OF SYSTEMS: Constitutional: No documented fever, no chills, no night sweats. No weight change. No weakness, fatigue or lethargy. No daytime sleepiness. HEENT: No headache. No blurred vision or double vision, no loss of vision. No loss of Hearing, no ringing in the ears, no dizziness. No nasal drainage or congestion. No epistaxis. No sore throat. Lungs: No shortness of breath, occasional cough, minimal sputum production. No wheezing. Reports dyspnea with activity. Cardiovascular: No chest pain, no lower extremity edema. No palpitations. No paroxysmal nocturnal dyspnea. No orthopnea. No lightheadedness or dizziness. No syncopal episodes. Abdominal: Reports abdominal pain. positive for nausea, vomiting. No diarrhea. positive for constipation. No bloody or tarry stools reports loss of appetite. Genitourinary: No dysuria, increased frequency, urgency. No urinary retention. Musculoskeletal: No myalgias. No muscle weakness, positive for gait dysfunction, no frequent falls. No back pain. No neck pain. left knee pain Integumentary: knee wound ok , no lesions. No rash or pruritus. No unusual bruising. No change in hair or nails. Neurologic: No aphasia. No facial droop. No change in mentation. No head injury. No headache. No paralysis. No paresthesia. Psychiatric: No depression. No anxiety. No mood swings. Endocrine: No abnormal blood sugars. No weight change. PHYSICAL EXAMINATION: General: 77-year-old male laying down in bed in no respiratory distress per HEENT: Head is atraumatic, normocephalic, pupils were equal round reactive to light and recommendation, extraocular muscle movement were intact, sclera nonicteric, conjunctivae were pale, mucous membranes of the mouth are somewhat dry. Neck: Supple, no JVP, normal carotid upstroke bilaterally, no lymphadenopathy. Chest: Decreased breath sounds at the bases, few rhonchi, minimal expiratory wheezes wheezes, no chest wall tenderness, no intercostal retractions. Heart: First heart sound is normal, second heart sound is normal tachycardic irregularly irregular there is permanent pacemaker located in the left upper precordium. Abdomen: Soft, nontender, nondistended, positive bowel sounds, there is no hepatosplenomegaly Extremities: There is no edema no calf tenderness DP +2 bilaterally. Neurologic examination: Patient is awake alert and oriented X 3 cranial nerves II-12 appear grossly intact, muscle power were 5 out of 5 in upper extremities and 5 out of 5 in bilateral lower extremities, deep tendon reflexes normal bilaterally. ASSESSMENT AND PLAN: 1. Atrial fibrillation with rapid ventricular response. we will continue with Amiodarone 400 mg po bid and we will continue with Eliquis 5 mg po bid 2. Type II [place] due to demand supply issues. Continue patient on atorvastatin 80 mg daily, patient has been off beta hung due to hypotension. 3. Hypertension and hypertensive cardiovascular disease currently hypotensive due to significant tachycardia patient did receive one and half liters NS, BP is better 4. Mixed hyperlipidemia. Continue patient on atorvastatin 80 mg once every day. Monitor lipid panel, LDL 55-70. 5. Paroxysmal atrial fibrillation post-ablation continue . continue Amiodarone 400 mg po bid continue patient on Eliquis 5 mg po bid 6. Recent left cemented total knee arthroplasty. Physical therapy consultation and orthopedic consultation increase activity as indicated, we will continue with current pain management 7. Constipation. Start the patient on senna as well as MiraLAX monitor the patient very closely, added Lactulose 20 gr po bid 8. DVT prophylaxis. Continue patient on Eliquis 5 mg po bid. 9. GI prophylaxis Continue patient on Protonix 40 mg IV push every 24 hours . 10. Cough possible Bronchitis R/O gram negative pneuminia. we will check CXR , Procalcitonin level and start Zosyn 3.375 gr IVPB Q 8 H . 11. we will continue to monitor , discussed with his and Daughter. Objective - Vital Signs Vital signs: Vital Signs Temp 98.5 F 01/28/23 03:41 Pulse 83 01/28/23 03:41 Resp 16 01/28/23 03:41 BP 150/72 01/28/23 05:30 Pulse Ox 93 L 01/28/23 03:41 FiO2 Intake & Output 01/27/23 01/28/23 01/28/23 18:59 06:59 18:59 Intake Total 1530 0 Output Total 495 795 Balance 1035 -795 Intake: Oral 1530 0 Output: Urine 495 795 Other: Voiding Method Urinal Urinal # Voids 1 # Bowel Movements 1 - Labs CBC & Chem 7: 01/27/23 04:37 01/27/23 04:37
[2023-01-28] MEDS ORDERED: PIPERACILLIN-TAZOBACTAM 3.375 GM in SODIUM CHLORIDE 0.9% 100 ML IVPB STA (11:42)
[2023-01-28] MEDS: HYDROcodone/APAP 7.5-325MG 1 EACH TAB PO PRN ×2 (12:20→21:37)
[2023-01-28] MEDS: LACTULOSE 20 GM/30 ML CUP PO SCH ×3 (12:24→19:42)
--- NOTE | 2023-01-28 12:52 | P.PN ---
Subjective Progress Note Date: 01/28/23 The patient is a 77-year-old male who follows in the office with Dr. Mo. He has a known history of atrial fibrillation with prior ablation with Dr. Gregory. The patient was recently cleared to undergo left total knee arthroplasty. Surgery was unremarkable and he was discharged home. He was then noted to have elevated heart rates and hypotension when working with physical therapy, and therefore was admitted to the hospital with A. fib with RVR. He was given IV amiodarone bolus, for which he converted in the ICU. He was started on oral and transferred to the stepdown unit. Overnight it a recurrent in his A. fib with RVR. Heart rate is in the 150s and he generally feels unwell when in atrial fibrillation. The patient was interviewed and examined resting comfortably in bed. No difficulty breathing at rest, he feels tired. No chest pain. GENERAL: Well-appearing, well-nourished and in no acute distress. NECK: Supple without JVD or thyromegaly. LUNGS: Breath sounds clear to auscultation bilaterally. Respiration equal and unlabored. No wheezes, rales or rhonchi. HEART: Irregular rate and rhythm without murmurs, rubs or gallops. S1 and S2 heard. EXTREMITIES: Normal range of motion, no edema. No clubbing or cyanosis. Peripheral pulses intact and strong. TELEMETRY: Conversion to sinus mechanism with heart rate in the 70s IMPRESSION: Atrial fibrillation with RVR 72 hour postop after left total knee arthroplasty Elevated troponin, flat trend History of atrial fibrillation ablation with Dr. Gregory PLAN: Increase amiodarone to 400 mg twice daily Resume beta hung Wean off Cardizem drip I am dictating on behalf of Dr Gareth Mo's history/physical and assessment/plan. Objective - Vital Signs Vital signs: Vital Signs Temp 98.5 F 01/28/23 03:41 Pulse 63 01/28/23 12:00 Resp 16 01/28/23 12:00 BP 118/66 01/28/23 12:00 Pulse Ox 95 01/28/23 12:00 FiO2 Intake & Output 01/27/23 01/28/23 01/28/23 18:59 06:59 18:59 Intake Total 1530 0 Output Total 495 795 Balance 1035 -795 Intake: Oral 1530 0 Output: Urine 495 795 Other: Voiding Method Urinal Urinal Urinal # Voids 1 # Bowel Movements 1 - Labs CBC & Chem 7: 01/27/23 04:37 01/27/23 04:37
--- NOTE | 2023-01-28 13:46 | XR ---
EXAMINATION TYPE: XR chest 1V DATE OF EXAM: 01/28/2023 HISTORY: Shortness of breath. COMPARISON: 01/25/2023 TECHNIQUE: Single view of the chest is submitted. FINDINGS: Demonstrated are scattered senescent parenchymal change. There is no evidence for focal infiltrate. The heart is stable. Hilar and mediastinal structures are within normal limits. Degenerative changes are seen of the dorsal spine. IMPRESSION: 1. Chronic changes without evidence for acute pulmonary disease.
[2023-01-28] MEDS: PIPERACILLIN-TAZOBACTAM 3.375 GM in SODIUM CHLORIDE 0.9% 100 ML IVPB SCH (18:40)
[2023-01-28] MEDS: ATORVASTATIN 80 MG TAB PO SCH (19:53)
[2023-01-28 23:54] VITALS: RESP 16
[2023-01-29] MEDS: NOREPINEPHRINE 4 MG in SODIUM CHLORIDE 0.9% 250 ML IV SCH (00:22)
[2023-01-29] MEDS: PIPERACILLIN-TAZOBACTAM 3.375 GM in SODIUM CHLORIDE 0.9% 100 ML IVPB SCH (00:36)
[2023-01-29] MEDS: DILTIAZEM 125 MG in SODIUM CHLORIDE 0.9% 100 ML IV SCH (06:16)
[2023-01-29 06:53] LABS: Basophils % (A) 1 %; Eosinophils # (A) 0.2 k/uL (0-0.7); Eosinophils % (A) 3 %; HCT 32.8 % (39.0-53.0); HGB 11.2 gm/dL (13.0-17.5); Lymphocytes # (A) 1.5 k/uL (1.0-4.8); Lymphocytes % (A) 19 %; MCV 88.2 fL (80.0-100.0); Mean Platelet Volume 7.5; Monocytes # (A) 0.6 k/uL (0-1.0); Monocytes % (A) 8 %; Neutrophils # (A) 5.2 k/uL (1.3-7.7); Neutrophils % (A) 67 %; Platelet Count 222 k/uL (150-450); RBC 3.72 m/uL (4.30-5.90); RDW 14.8 % (11.5-15.5); WBC 7.8 k/uL (3.8-10.6)
[2023-01-29 07:03] LABS: Sodium 135 mmol/L (137-145)
[2023-01-29 07:05] LABS: ALT 27 U/L (4-49); AST 32 U/L (17-59); African American GFR (CKD) >90 (>60 ml/min/1.73 sqM); Albumin 2.9 g/dL (3.5-5.0); Alkaline Phosphatase 66 U/L (38-126); Anion Gap 7 mmol/L; Blood Urea Nitrogen 15 mg/dL (9-20); Calcium 8.2 mg/dL (8.4-10.2); Carbon Dioxide 24 mmol/L (22-30); Chloride 104 mmol/L (98-107); Glucose 114 mg/dL (74-99); Magnesium 2.1 mg/dL (1.6-2.3); Non-African American GFR(CKD) >90 (>60 ml/min/1.73 sqM); Potassium 4.2 mmol/L (3.5-5.1); Total Bilirubin 1.1 mg/dL (0.2-1.3); Total Protein 5.3 g/dL (6.3-8.2)
[2023-01-29 07:14] LABS: NT-Pro-B-Type Natriuretic Pept 785 pg/mL
[2023-01-29] MEDS: METOPROLOL TARTRATE 50 MG TAB PO SCH (08:30)
[2023-01-29] MEDS: APIXABAN 5 MG TAB PO SCH (08:30)
[2023-01-29] MEDS: PANTOPRAZOLE 40 MG/10 ML VIAL IV SCH (08:31)
[2023-01-29] MEDS: AMIODARONE 200 MG TAB PO SCH (08:31)
[2023-01-29] MEDS: polyethylene glycoL 3350 17 GM POWD.PACK PO SCH (08:31)
[2023-01-29] MEDS: SENNOSIDES 8.6 MG TAB PO SCH (08:31)
[2023-01-29] MEDS: LACTULOSE 20 GM/30 ML CUP PO SCH (08:31)
[2023-01-29 08:39] VITALS: BP 154/67; PULSE 64; TEMP 98.3
[2023-01-29] MEDS ORDERED: VALSARTAN 80 MG TAB PO SCH (09:00)
[2023-01-29] MEDS ORDERED: AMOXIC-POT CLAV 875-125MG 1 EACH TAB PO SCH (09:00)
--- NOTE | 2023-01-29 10:10 | P.DS ---
Providers Date of admission: 01/25/23 15:40 Expected date of discharge: 02/05/23 Attending physician: Andres Johnston Consults: 01/25/23 15:40 Consult Physician Urgent Consulting Provider: [facility] Consult Reason/Comments: A. fib with rapid ventricular response Do you want consulting provider notified?: Yes 01/25/23 22:02 Consult Physician Routine Consulting Provider: Patrica Mai Consult Reason/Comments: ICU Managment Do you want consulting provider notified?: Yes Consult Physician Routine Consulting Provider: Maverick Dillon Consult Reason/Comments: Recent Knee surgery Do you want consulting provider notified?: Yes Primary care physician: Andres Johnston [facility] Course: HISTORY OF PRESENT ILLNESS: This is a 77-year-old male with a previous medical history significant for coronary artery disease status post PCI and multiple stent placement, paroxysmal DrMalena bonilla, hypertension and hypertensive cardio vascular disease, hyperlipidemia, GERD with esophagitis, osteoarthritis of the left knee, patient recently underwent a cemented left total knee arthroplasty that was done by Dr. Dillon and he was discharged home the day before yesterday, patient was supposed to get some physical therapy today and he woke up in the morning and his therapist noticed that his heart is quite fast, and his blood pressure was quite low, at that time he was recommended for the patient to be transferred to the emergency department at [facility] for evaluation after he contacted Dr. Dillon and cardiology patient was found to be in atrial fibrilla tion with rapid response, patient was initially started on Cardizem drip he became somewhat hypotensive, he did receive a liter and half of IV fluid in the form of normal saline, and he was placed on Cardizem drip at 5 mg per hour he was admitted to a telemetry unit, but because of hypotension cariology recommended the patient be transferred to the intensive care unit, his heart rate was in the range of 160, his Cardizem drip was increased and eventually was taken off and he was started on amiodarone. 01/26: Patient remains in the ICU due to hypotension. He is on Cardizem gtt 15 mg/hr and has received Amiodarone loading dose of 300 mg. He has not required Levophed. Unfortunately, his heart rate is running 129-140, tele is afib. BP 103/64. Dr. Mo will be back to reassess him this afternoon. Patient states he continues to have pain in the left knee. [place] has been resumed. Patient has not had a BM but passing flatulence. Patient is reaching 2500 on incentive spirometry. Discharge plan is to return home with [facility]. 01/27: Patient is seen today in the intensive care unit. Yesterday, he received a bolus of amiodarone 300 milligram and subsequently started on oral amiodarone at 400 mg [address] Mo. Cardizem drip is off. He has converted to a sinus rhythm heart rates in the 70s, blood pressure 122/51, pulse ox 95% on 2 L. Patient has been afebrile. Repeat blood work reveals hemoglobin is 10.7. Sodium 135, potassium 3.9, creatinine 0.66. Patient complains of constipation and MiraLAX added. Plan to increase activity, transfer out of the intensive care unit to the cardiac stepdown unit, continue telemetry monitoring. 01/28: patient went to [facility] again and he was started on cardizem drip and Amiodarone was increased to 400 mg po bid and he still off Metoprolol , he continues to have cough with yellowish phlegm we will check CXR and we will start Zosyn 3.375 gr IVPB Q 8 h and will check Procalcitonin as well and we will keep in the hospital for one more day 01/29: Patient is sitting up in bed in no apparent distress, he had a chest x-ray history that was negative for acute disease, discontinue Zosyn, we'll switch the patient to oral Augmentin 875 mg orally twice every day for a total of 7 days for possible bronchitis, patient will be maintained on amiodarone as well as Eliquis 5 mg orally twice every day, increase activity, continue pain management, continue current bowel care, patient likely will be able to discharge home today. Discharge diagnoses: 1. Atrial fibrillation with rapid ventricular response. 2. Type II SD due to demand supply issues. 3. Hypertension and hypertensive cardiovascular disease 4. Mixed hyperlipidemia. 5. Paroxysmal atrial fibrillation post-ablation continue . 6. Recent left cemented total knee arthroplasty. 7. Constipation. 10. Cough possible Bronchitis Plan - Discharge Summary Discharge Rx Participant: No New Discharge Prescriptions: No Action Nitroglycerin Sl Tabs [Nitrostat] 0.4 mg SUBLINGUAL Q5M PRN PRN Reason: Chest Pain Apixaban [Eliquis] 5 mg PO BID Omeprazole [PriLOSEC] 20 mg PO AC-BID Metoprolol Succinate [Toprol XL] 100 mg PO HS Metoprolol Succinate (ER) [Toprol Xl] 50 mg PO DAILY Magnesium Oxide [Magnesium] 500 tab PO DAILY HYDROcodone/APAP 7.5-325MG [[place] 7.5-325] 1 - 2 tab PO Q6HR PRN #32 tab PRN Reason: Pain Ondansetron Odt [Zofran Odt] 4 mg PO Q8HR PRN #14 tab PRN Reason: Nausea Fluocinonide 0.05% Solution 1 applic TOPICAL HS PRN PRN Reason: scalp Ubidecarenone [Coenzyme Q10] 200 mg PO DAILY Cholecalciferol [Vitamin D3 (25 Mcg = 1000 Iu)] 50 mcg PO DAILY calcium polycarbophiL [Fibercon] 625 mg PO DAILY Atorvastatin [Lipitor] 80 mg PO HS Sennosides-Docusate Sodium [Senokot-S] 1 tab PO BID #60 tablet Ketoconazole 2% Shampoo [Nizoral] 1 applic TOPICAL DIRECTED PRN PRN Reason: when washing scalp Valsartan/Hydrochlorothiazide [Valsartan-Hctz 320-25 mg Tab] 1 tab PO DAILY Furosemide [Lasix] 20 mg PO DAILY Discharge Medication List Apixaban [Eliquis] 5 mg PO BID 03/23/16 [History] Metoprolol Succinate [Toprol XL] 100 mg PO HS 03/23/16 [History] Nitroglycerin Sl Tabs [Nitrostat] 0.4 mg SUBLINGUAL Q5M PRN 03/23/16 [History] Omeprazole [PriLOSEC] 20 mg PO AC-BID 03/23/16 [History] Magnesium Oxide [Magnesium] 500 tab PO DAILY 01/16/23 [History] Metoprolol Succinate (ER) [Toprol Xl] 50 mg PO DAILY 01/16/23 [History] HYDROcodone/APAP 7.5-325MG [[place] 7.5-325] 1 - 2 tab PO Q6HR PRN #32 tab 01/23/23 [Rx] Ondansetron Odt [Zofran Odt] 4 mg PO Q8HR PRN #14 tab 01/23/23 [Rx] Sennosides-Docusate Sodium [Senokot-S] 1 tab PO BID #60 tablet 01/23/23 [Rx] Atorvastatin [Lipitor] 80 mg PO HS 01/25/23 [History] Cholecalciferol [Vitamin D3 (25 Mcg = 1000 Iu)] 50 mcg PO DAILY 01/25/23 [History] Fluocinonide 0.05% Solution 1 applic TOPICAL HS PRN 01/25/23 [History] Furosemide [Lasix] 20 mg PO DAILY 01/25/23 [History] Ketoconazole 2% Shampoo [Nizoral] 1 applic TOPICAL DIRECTED PRN 01/25/23 [History] Ubidecarenone [Coenzyme Q10] 200 mg PO DAILY 01/25/23 [History] Valsartan/Hydrochlorothiazide [Valsartan-Hctz 320-25 mg Tab] 1 tab PO DAILY 01/25/23 [History] calcium polycarbophiL [Fibercon] 625 mg PO DAILY 01/25/23 [History] Follow up Appointment(s)/Referral(s): Andres Johnston MD [Primary Care Provider] - 1-2 days [facility], [NON-STAFF] - 1 Week
--- NOTE | 2023-01-29 10:10 | P.PN ---
Subjective Progress Note Date: 01/29/23 HISTORY OF PRESENT ILLNESS: This is a 77-year-old male with a previous medical history significant for coronary artery disease status post PCI and multiple stent placement, paroxysmal DrMalena bonilla, hypertension and hypertensive cardio vascular disease, hyperlipidemia, GERD with esophagitis, osteoarthritis of the left knee, patient recently underwent a cemented left total knee arthroplasty that was done by Dr. Dillon and he was discharged home the day before yesterday, patient was supposed to get some physical therapy today and he woke up in the morning and his therapist noticed that his heart is quite fast, and his blood pressure was quite low, at that time he was recommended for the patient to be transferred to the emergency department at [facility] for evaluation after he contacted Dr. Dillon and cardiology patient was found to be in atrial fibrillation with rapid response, patient was initially started on Cardizem drip he became somewhat hypotensive, he did receive a liter and half of IV fluid in the form of normal saline, and he was placed on Cardizem drip at 5 mg per hour he was admitted to a telemetry unit, but because of hypotension cariology recommended the patient be transferred to the intensive care unit, his heart rate was in the range of 160, his Cardizem drip was increased and eventually was taken off and he was started on amiodarone. 01/26: Patient remains in the ICU due to hypotension. He is on Cardizem gtt 15 mg/hr and has received Amiodarone loading dose of 300 mg. He has not required Levophed. Unfortunately, his heart rate is running 129-140, tele is afib. BP 103/64. Dr. Mo will be back to reassess him this afternoon. Patient states he continues to have pain in the left knee. [place] has been resumed. Patient has not had a BM but passing flatulence. Patient is reaching 2500 on incentive spirometry. Discharge plan is to return home with [facility]. 01/27: Patient is seen today in the intensive care unit. Yesterday, he received a bolus of amiodarone 300 milligram and subsequently started on oral amiodarone at 400 mg [address] Mo. Cardizem drip is off. He has converted to a sinus rhythm heart rates in the 70s, blood pressure 122/51, pulse ox 95% on 2 L. Patient has been afebrile. Repeat blood work reveals hemoglobin is 10.7. Sodium 135, potassium 3.9, creatinine 0.66. Patient complains of constipation and MiraLAX added. Plan to increase activity, transfer out of the intensive care unit to the cardiac stepdown unit, continue telemetry monitoring. 01/28: patient went to [facility] again and he was started on cardizem drip and Amiodarone was increased to 400 mg po bid and he still off Metoprolol , he continues to have cough with yellowish phlegm we will check CXR and we will start Zosyn 3.375 gr IVPB Q 8 h and will check Procalcitonin as well and we will keep in the hospital for one more day 01/29: Patient is sitting up in bed in no apparent distress, he had a chest x-ray history that was negative for acute disease, discontinue Zosyn, we'll switch the patient to oral Augmentin 875 mg orally twice every day for a total of 7 days for possible bronchitis, patient will be maintained on amiodarone as well as Eliquis 5 mg orally twice every day, increase activity, continue pain manage ment, continue current bowel care, patient likely will be able to discharge home today. REVIEW OF SYSTEMS: Constitutional: No documented fever, no chills, no night sweats. No weight change. No weakness, fatigue or lethargy. No daytime sleepiness. HEENT: No headache. No blurred vision or double vision, no loss of vision. No loss of Hearing, no ringing in the ears, no dizziness. No nasal drainage or congestion. No epistaxis. No sore throat. Lungs: No shortness of breath, occasional cough, minimal sputum production. No wheezing. Reports dyspnea with activity. Cardiovascular: No chest pain, no lower extremity edema. No palpitations. No paroxysmal nocturnal dyspnea. No orthopnea. No lightheadedness or dizziness. No syncopal episodes. Abdominal: Reports abdominal pain. positive for nausea, vomiting. No diarrhea. positive for constipation. No bloody or tarry stools reports loss of appetite. Genitourinary: No dysuria, increased frequency, urgency. No urinary retention. Musculoskeletal: No myalgias. No muscle weakness, positive for gait dysfunction, no frequent falls. No back pain. No neck pain. left knee pain Integumentary: knee wound ok , no lesions. No rash or pruritus. No unusual bruising. No change in hair or nails. Neurologic: No aphasia. No facial droop. No change in mentation. No head injury. No headache. No paralysis. No paresthesia. Psychiatric: No depression. No anxiety. No mood swings. Endocrine: No abnormal blood sugars. No weight change. PHYSICAL EXAMINATION: General: 77-year-old male laying down in bed in no respiratory distress per HEENT: Head is atraumatic, normocephalic, pupils were equal round reactive to light and recommendation, extraocular muscle movement were intact, sclera nonicteric, conjunctivae were pale, mucous membranes of the mouth are somewhat dry. Neck: Supple, no JVP, normal carotid upstroke bilaterally, no lymphadenopathy. Chest: Decreased breath sounds at the bases, few rhonchi, minimal expiratory wheezes wheezes, no chest wall tenderness, no intercostal retractions. Heart: First heart sound is normal, second heart sound is normal tachycardic irregularly irregular there is permanent pacemaker located in the left upper precordium. Abdomen: Soft, nontender, nondistended, positive bowel sounds, there is no hepatosplenomegaly Extremities: There is no edema no calf tenderness DP +2 bilaterally. Neurologic examination: Patient is awake alert and oriented X 3 cranial nerves II-12 appear grossly intact, muscle power were 5 out of 5 in upper extremities and 5 out of 5 in bilateral lower extremities, deep tendon reflexes normal bilaterally. ASSESSMENT AND PLAN: 1. Atrial fibrillation with rapid ventricular response. we will continue with Amiodarone 400 mg po bid and we will continue with Eliquis 5 mg po bid 2. Type II MD due to demand supply issues. Continue patient on atorvastatin 80 mg daily, patient has been off beta hung due to hypotension. 3. Hypertension and hypertensive cardiovascular disease currently hypotensive due to significant tachycardia patient did receive one and half liters NS, BP is better 4. Mixed hyperlipidemia. Continue patient on atorvastatin 80 mg once every day. Monitor lipid panel, LDL 55-70. 5. Paroxysmal atrial fibrillation post-ablation continue . continue Amiodarone 400 mg po bid continue patient on Eliquis 5 mg po bid 6. Recent left cemented total knee arthroplasty. Physical therapy consultation and orthopedic consultation increase activity as indicated, we will continue with current pain management 7. Constipation. Start the patient on senna as well as MiraLAX monitor the patient very closely, added Lactulose 20 gr po bid 8. DVT prophylaxis. Continue patient on Eliquis 5 mg po bid. 9. GI prophylaxis Continue patient on Protonix 40 mg IV push every 24 hours . 10. Cough possible Bronchitis we will discontinue Zosyn and start the patient on Augmentin 875 mg orally twice every day for 7 days. 11. we will continue to monitor , discussed with his and Daughter. Objective - Vital Signs Vital signs: Vital Signs Temp 98.2 F 01/29/23 03:28 Pulse 63 01/29/23 03:28 Resp 16 01/29/23 03:28 BP 132/74 01/29/23 03:28 Pulse Ox 95 01/29/23 03:28 FiO2 Intake & Output 01/28/23 01/28/23 01/29/23 06:59 18:59 06:59 Intake Total 0 118 Output Total 795 475 450 Balance -037 -703 -093 Intake: Oral 0 118 Output: Urine 795 475 450 Other: Voiding Method Urinal Urinal Urinal # Voids 1 3 # Bowel Movements 2 - Labs CBC & Chem 7: 01/27/23 04:37 01/27/23 04:37
[2023-01-29] MEDS ORDERED: TRANEXAMIC ACID 1,000 MG in SODIUM CHLORIDE 0.9% 250 ML IV ONE (10:19)
[2023-01-29] MEDS: HYDROcodone/APAP 7.5-325MG 1 EACH TAB PO PRN (10:59)
--- NOTE | 2023-01-29 12:02 | P.PN ---
Subjective Progress Note Date: 01/29/23 The patient is a 77-year-old male who follows in the office with Dr. Mo. He has a known history of atrial fibrillation with prior ablation with Dr. Gregory. The patient was recently cleared to undergo left total knee arthroplasty. Surgery was unremarkable and he was discharged home. He was then noted to have elevated heart rates and hypotension when working with physical therapy, and therefore was admitted to the hospital with A. fib with RVR. He was given IV amiodarone bolus, for which he converted in the ICU. After being transferred to the stepdown unit, the patient had an additional episode of atrial fibrillation with RVR. His oral amiodarone was increased to 400 mg twice daily and his beta hung was resumed. No atrial fibrillation overnight The patient was interviewed and examined resting comfortably in bed. No difficulty breathing at rest, he feels tired. No chest pain. GENERAL: Well-appearing, well-nourished and in no acute distress. NECK: Supple without JVD or thyromegaly. LUNGS: Breath sounds clear to auscultation bilaterally. Respiration equal and unlabored. No wheezes, rales or rhonchi. HEART: Irregular rate and rhythm without murmurs, rubs or gallops. S1 and S2 heard. EXTREMITIES: Normal range of motion, no edema. No clubbing or cyanosis. Peripheral pulses intact and strong. TELEMETRY: Conversion to sinus mechanism with heart rate in the 70s IMPRESSION: Atrial fibrillation with RVR 72 hour postop after left total knee arthroplasty Elevated troponin, flat trend History of atrial fibrillation ablation with Dr. Gregory PLAN: Discharge on amiodarone 400 mg twice daily for 1 week, then 400 mg daily thereafter Follow-up with Dr. Mo in 1-2 weeks I am dictating on behalf of Dr Gareth Mo's history/physical and assessment/plan. Objective - Vital Signs Vital signs: Vital Signs Temp 98.3 F 01/29/23 08:00 Pulse 64 01/29/23 08:00 Resp 16 01/29/23 08:00 BP 154/67 01/29/23 08:00 Pulse Ox 96 01/29/23 08:00 FiO2 Intake & Output 01/28/23 01/29/23 01/29/23 18:59 06:59 18:59 Intake Total 118 480 Output Total 475 450 Balance -475 -332 480 Intake: Oral 118 480 Output: Urine 475 450 Other: Voiding Method Urinal Urinal Urinal # Voids 3 # Bowel Movements 2 - Labs CBC & Chem 7: 01/29/23 06:31 01/29/23 06:31 Labs: Abnormal Lab Results - Last 24 Hours (Table) 01/29/23 01/29/23 Range/Units 06:31 06:31 RBC 3.72 L (4.30-5.90) m/uL Hgb 11.2 L (13.0-17.5) gm/dL Hct 32.8 L (39.0-53.0) % Sodium 135 L (137-145) mmol/L Glucose 114 H (74-99) mg/dL Calcium 8.2 L (8.4-10.2) mg/dL Total Protein 5.3 L (6.3-8.2) g/dL Albumin 2.9 L (3.5-5.0) g/dL
--- NOTE | 2023-01-29 12:32 | P.PN ---
Subjective Progress Note Date: 01/29/23 Principal diagnosis: Atrial fibrillation with RVR, history of paroxysmal atrial fibrillation I am seeing this patient in new consultation today 01/26/2023 in the ICU for atrial fibrillation with rapid ventricular rate and hypotension. Patient is a 77-year-old white male with past medical history significant for paroxysmal atrial fibrillation normally anticoagulated on Eliquis, previous ablation and pacemaker insertion, coronary artery disease, hyperlipidemia, hypertension, obstructive sleep apnea, and osteoarthritis. Patient recently had a left total knee replacement on January 23, he was discharged home 2 days ago. Apparently, yesterday morning he started to feel lightheaded, and took his blood pressure which was low. His physical therapist volunteer assistant came to his house for rehab, found his heart rate to be elevated, and recommended that he come to the emergency room. On arrival to the emergency room, he was fluid resuscitated with 1.5 L normal saline bolus, and started on Cardizem infusion which is currently at 10 mg per hour. He was originally admitted to the cardiac stepdown unit, but was transferred to the ICU earlier yesterday evening due to hypotensio n. Patient is currently sitting up in bed, on 2 L/m nasal cannula, in no acute distress. Heart rate is currently 130 bpm, and blood pressure is normotensive. He is pretty much asymptomatic at this time. Denies chest pain, heart palpitations, lightheadedness. No need for cardioversion or vasopressors at this time. If the patient does become hypotensive again, recommend switching to amiodarone infusion. He denies any infectious symptoms such as fevers, chills, myalgias, cough, chest pain, hemoptysis. He denies any nausea or vomiting, abdominal pain, diarrhea. He states his last bowel movement was approximately 4 days ago. Denies any genitourinary complaints. There is a postoperative d ressing on the left knee which is clean and dry. There is a left knee nerve block. Chest CTA on arrival was negative for PE. It did show COPD changes, likely some underlying pulmonary hypertension, coronary artery disease with significant calcification within the LAD, patchy opacities at bilateral lung bases, likely atelectasis, and a non-specific 7 mm right middle lobe pulmonary nodule and nonspecific mediastinal and hilar lymphadenopathy which will need to be followed. CBC on arrival showed some leukocytosis with a WBC count of 14.1, hemoglobin 13.2, hematocrit 38.8, platelets 178. BMP was fairly unremarkable. Lactic acid level was 1.7. Troponins are mildly elevated at 0.055, 0.068, and 0.063 respectively. Patient's Eliquis has been restarted. Afebrile. Patient will be monitored in the intensive care unit. Reevaluated today on 01/27/2023, patient remains in the ICU, doing well. He is now in sinus rhythm patient converted to sinus rhythm last night, he is now on oral amiodarone, eliquis, asymptomatic, no shortness of breath no cough no wheezing. He denies any chest pain, remains hemodynamically stable. His amiodarone dose is 400 mg by mouth daily. His CBC is relatively normal today hemoglobin is 10.7 and electrolytes are normal except for low potassium of 3.9 being corrected. Reevaluated today on 01/28/2023, patient is now on the cardiac floor, back in atrial fibrillation with RVR, patient is on a higher dose of amiodarone 400 mg by mouth twice a day he is on metoprolol, and Cardizem 10 mg per hour was added. Patient does not seem to be in any distress, he is being followed by cardiology, no cough no wheezing no shortness of breath and no chest pain. Reevaluated today on 01/29/2023, patient is doing great, asymptomatic, his atrial fibrillation is under control, and he was supposedly cleared for discharge by cardiology. No active pulmonary symptoms chest x-ray today is reassuring, hence I will clear the patient for discharge if cleared by other consultants. Labs are basically unremarkable including CBC and basic metabolic profile today, renal profile is normal Objective - Vital Signs Vital signs: Vital Signs Temp 98.3 F 01/29/23 08:00 Pulse 64 01/29/23 08:00 Resp 16 01/29/23 08:00 BP 154/67 01/29/23 08:00 Pulse Ox 96 01/29/23 08:00 FiO2 Intake & Output 01/28/23 01/29/23 01/29/23 18:59 06:59 18:59 Intake Total 118 480 Output Total 475 450 Balance -475 -332 480 Intake: Oral 118 480 Output: Urine 475 450 Other: Voiding Method Urinal Urinal Urinal # Voids 3 # Bowel Movements 2 - Exam Physical Exam: Revealed a 77-year-old white male in no distress, on room air Head: Atraumatic, normocephalic HEENT:[Neck is supple.] [No neck masses.] [No thyromegaly.] [No JVD.] Chest: [Clear throughout, no crackles, no rhonchi, no wheezes.] Cardiac Exam: [Normal S1 and S2, no S3 gallop, no murmur.] Abdomen: [Soft, nontender, no megaly, no rebound, no guarding, normal bowel sounds.] Extremities: [No clubbing, no edema, no cyanosis.] Neurological Exam: [No focal neurologic deficit.] Alert oriented 3 Psychiatric: Normal mood affect and normal mental status examination. Skin: No rashes - Labs CBC & Chem 7: 01/29/23 06:31 08 06:31 Labs: Abnormal Lab Results - Last 24 Hours (Table) 01/29/23 01/29/23 Range/Units 06:31 06:31 RBC 3.72 L (4.30-5.90) m/uL Hgb 11.2 L (13.0-17.5) gm/dL Hct 32.8 L (39.0-53.0) % Sodium 135 L (137-145) mmol/L Glucose 114 H (74-99) mg/dL Calcium 8.2 L (8.4-10.2) mg/dL Total Protein 5.3 L (6.3-8.2) g/dL Albumin 2.9 L (3.5-5.0) g/dL Assessment and Plan Assessment: Impression: Atrial fibrillation with RVR History of paroxysmal atrial fibrillation Hypotension secondary to atrial fibrillation, resolved 7 mm nodule in the right middle lobe needs outpatient follow-up and repeat CT of the chest in 6 months Coronary arteriosclerosis Benign essential hypertension Dyslipidemia Obstructive sleep apnea syndrome Ex-smoker GERD without esophagitis Recent left total knee arthroplasty postoperative day #5 Recommendation: Agree with discharge planning if cleared by cardiology Patient to follow up on outpatient basis regarding his 7 mm nodule in the next [address] of the chest in 6 months Will follow as needed Time with Patient: Less than 30
== END 2023-01-29 12:13 | disposition home health service (06) | DRG 280 ==
LOC: EC 13:03 → 3SCARD 15:40 → 2SICU 22:41 → 3SCARD 01-27 15:47
PROVIDERS: ADMIT Internal Medicine; ATTEND Internal Medicine
PROC: 3E033XZ Introduction of Vasopressor into Peripheral Vein, Percutaneous Approach (ICD-10-PCS; principal; 2023-01-25)
DX: I48.0 Paroxysmal atrial fibrillation (principal); J96.01 Acute respiratory failure with hypoxia; I21.A1 Myocardial infarction type 2; J98.11 Atelectasis; I95.9 Hypotension, unspecified; I11.9 Hypertensive heart disease without heart failure; J44.9 Chronic obstructive pulmonary disease, unspecified; I27.20 Pulmonary hypertension, unspecified; E78.2 Mixed hyperlipidemia; I25.10 Atherosclerotic heart disease of native coronary artery without angina pectoris; J40 Bronchitis, not specified as acute or chronic; G47.33 Obstructive sleep apnea (adult) (pediatric); M17.12 Unilateral primary osteoarthritis, left knee; K21.9 Gastro-esophageal reflux disease without esophagitis; R59.0 Localized enlarged lymph nodes; R91.1 Solitary pulmonary nodule; K59.00 Constipation, unspecified; Z79.01 Long term (current) use of anticoagulants; Z79.899 Other long term (current) drug therapy; Z95.5 Presence of coronary angioplasty implant and graft; Z95.0 Presence of cardiac pacemaker; Z87.891 Personal history of nicotine dependence; Z96.652 Presence of left artificial knee joint; Z82.49 Family history of ischemic heart disease and other diseases of the circulatory system
CPT/HCPCS: 36415; 71045; 71046; 71275; 80048; 80053; 80061; 83605; 83735; 83880; 84145; 84443; 84484; 85025; 85610; 85730; 87070; 87077; 87186; 87205; 87449; 93005; 96361; 96365; 96366; 96375; 99291

== ENCOUNTER → 2023-07-13 | Outpatient (CLI) | payer MEDICARE, BC ==
[2023-07-13 18:30] LABS: Basophils # (A) 0.05 X 10*3/uL (0.00-0.10); Basophils % (A) 0.7 %; Eosinophils # (A) 0.14 X 10*3/uL (0.04-0.35); HCT 39.4 % (39.6-50.0); HGB 11.9 g/dL (13.0-17.0); Lymphocytes # (A) 1.47 X 10*3/uL (0.90-5.00); Lymphocytes % (A) 20.6 %; MCH 24.8 pg (27.0-32.0); MCHC 30.2 g/dL (32.0-37.0); MCV 82.3 FL (80.0-97.0); Mean Platelet Volume 11.4 FL (9.5-12.2); Monocytes # (A) 0.79 X 10*3/uL (0.20-1.00); Monocytes % (A) 11.1 %; NRBC Per 100 WBC 0 X 10*3/uL (0.00-0.01); Neutrophils # (A) 4.66 X 10*3/uL (1.80-7.70); Neutrophils % (A) 65.3 %; Platelet Count 225 X 10*3/uL (140-440); RBC 4.79 X 10*6/uL (4.40-5.60); RDW 17.7 % (11.5-14.5); WBC 7.13 X 10*3/uL (4.50-10.00)
[2023-07-13 18:37] LABS: Blood Urea Nitrogen 20.3 mg/dL (9.0-27.0); Carbon Dioxide 25.4 mmol/L (21.6-31.8); Chloride 103 mmol/L (96-109); Potassium 4.6 mmol/L (3.5-5.5); Sodium 141 mmol/L (135-145)
== END | disposition home or self-care (01) ==
LOC: LABPAT 13:34
PROVIDERS: ATTEND Internal Medicine Clinical Cardiac Electrophysiology
DX: Z01.812 Encounter for preprocedural laboratory examination (principal); I48.19 Other persistent atrial fibrillation
CPT/HCPCS: 36415; 80051; 82565; 84520; 85025

== ENCOUNTER 2023-07-18 13:30 | Day surgery (SDC) | payer MEDICARE, BC ==
[2023-07-13 10:28] VITALS: BMI 26.4
[2023-07-18] MEDS: SODIUM CHLORIDE 0.9% 1,000 ML IV ONE (14:38)
[2023-07-18] MEDS: ONDANSETRON 4 MG/2 ML VIAL IVP STA (15:26)
[2023-07-18] MEDS: DEXAMETHASONE SOD PHOSPHATE 4 MG/ML 1 ML VIAL IVP STA (15:56)
[2023-07-18] MEDS ORDERED: HEPARIN SODIUM 1,000 UN/ML (10ML VL) ONE (15:56)
[2023-07-18] MEDS ORDERED: HEPARIN SODIUM,PORCINE 5,000 UNIT/ML 1 ML VIAL ONE (16:07)
[2023-07-18] MEDS ORDERED: ePHEDrine 50 MG/ML 1 ML VIAL ONE (16:07)
[2023-07-18] MEDS ORDERED: MIDAZOLAM 2 MG/2 ML VIAL ONE (16:07)
[2023-07-18] MEDS ORDERED: PROPOFOL 10 MG/ML 20 ML VIAL IV ONE (16:07)
--- NOTE | 2023-07-18 16:23 | P.HPCAR ---
History of Present Illness This is Dr. Mo dictating an H/P on this patient The patient was interviewed and examined IMPRESSION / ASSESSMENT: Persistent atrial fibrillation with RVR Suboptimal rate control despite maximally tolerated beta-blockers, metoprolol succinate 300 mg daily Complains of tiredness and fatigue and being worn out Intolerant of oral amiodarone with nausea Recent diverticulitis with abscess formation. Recent abdominal surgery and colostomy Lexiscan Cardiolite stress test in November 2022 did not reveal any evidence for ischemia. Left ventricular ejection fraction 74% Last 2D echo in June 2022 revealed a left ventricular ejection fraction of 55% with mild LVH PLAN: I had a detailed discussion with the patient his and daughter The options of alternate antiarrhythmic drug therapy such as Multaq was considered, A-fib ablation was considered and the pros and cons were discussed. Success rates were discussed for persistent atrial fibrillation and this was the most important reason why I am recommending AV node modification The patient has underlying sick sinus syndrome and already has a dual-chamber pacemaker for sick sinus syndrome I would recommend AV node modification Currently his left ventricular ejection fraction is in the normal range If in the future there is reduction in his LV systolic function due to RV pacing, upgrade to left bundle pacing or LV pacing will be considered HPI Patient remains in atrial fibrillation with RVR despite a total of 300 mg of metoprolol succinate He complains of being tired fatigued and worn out His blood pressure is low normal He remains nauseous on all medications and has not tolerated amiodarone ROS: No fever chills or rigors, no cough, phlegm or expectoration, no nausea, vomiting or diarrhea, no hematuria, dysuria, no musculoskeletal complaints, no strokes or seizures, no skin lesions. EXAMINATION: Blood pressure 116/83 mmHg and 137/92 mmHg pulse rate at rest 134 beats a minute afebrile Heart sounds are tachycardic no murmurs Breath sounds reduced air entry bilaterally Abdomen soft Extremities warm no edema No JVD REVIEW OF LABS, ECG & MEDICAL DATA Currently on Eliquis and 300 mg of metoprolol succinate Physical Exam Vitals: Vital Signs Temp Pulse Resp BP BP Pulse Ox 07/18/23 15:03 97.7 F 134 H 16 137/92 116/83 100 Intake and Output 07/18/23 07/18/23 07/18/23 06:59 14:59 22:59 Intake Total 50 Balance 50 Intake: IV 50 Other: Weight 80.4 kg Past Medical History Past Medical History: Coronary Artery Disease (CAD), GERD/Reflux, Hyperlipidemia, Hypertension, Osteoarthritis (OA), Sleep Apnea/CPAP/BIPAP Additional Past Medical History / Comment(s): SEE DR MO'S H&P. degenerative discs in his back, and pre cancerous skin lesions, C PAP MACHINE, UPPER GI BLEED, BOWEL PERFORATION WITH OSTOMY 05/2023 History of Any Multi-Drug Resistant Organisms: None Reported Past Surgical History: Bowel Resection, Cardiac Ablation, Heart Catheterization With Stent, Hernia Repair, Joint Replacement, Pacemaker Additional Past Surgical History / Comment(s): inguinal hernia, HEART CATH WITH STENT X5 (X4 2013 AND X1 2019) , lt knee repl., bowel resection with ostomy 05/2023 Past Anesthesia/Blood Transfusion Reactions: Previous Problems w/ Anesthesia, Postoperative Nausea & Vomiting (PONV) Date of Last Stent Placement:: 2013, 2019 Type of Cardiac Device: Permanent Pacemaker Device Placement Date:: 2021 Past Psychological History: Anxiety Additional Psychological History / Comment(s): anxiety due to heart rate and exhaustion and lack of sleep currently Smoking Status: Former smoker Past Alcohol Use History: None Reported Additional Past Alcohol Use History / Comment(s): STARTED SMOKING AT AGE 14 QUIT 1993 SMOKED 1PPD Past Drug Use History: None Reported - Past Family History Mother Family Medical History: Cancer Additional Family Medical History / Comment(s): breast and skin Sister(s) Family Medical History: Cancer Additional Family Medical History / Comment(s): breast Father Family Medical History: Cancer Additional Family Medical History / Comment(s): throat Physical Examination Vital Signs Temp Pulse Resp BP BP Pulse Ox 07/18/23 15:03 97.7 F 134 H 16 137/92 116/83 100 Intake and Output 07/18/23 07/18/23 07/18/23 06:59 14:59 22:59 Intake Total 50 Balance 50 Intake: IV 50 Other: Weight 80.4 kg Results Current Medications Generic Name Dose Route Start Last Admin Trade Name Freq PRN Reason Stop Dose Admin Sodium Chloride 1,000 mls @ 50 mls/hr 07/18/23 06:29 Saline 0.9% IV 08/17/23 06:30 .Q20H KAM Cefazolin Sodium 2 gm/ Sodium 50 mls @ 100 mls/hr 07/18/23 16:07 07/18/23 16:19 Chloride IVPB 07/18/23 16:36 50 mls ONCE STA Administration Protocol Intake and Output 07/18/23 07/18/23 07/18/23 06:59 14:59 22:59 Intake Total 50 Balance 50 Intake: IV 50 Other: Weight 80.4 kg Patient Weight 07/19/23 06:59 Weight 80.4 kg
[2023-07-18] MEDS ORDERED: ACETAMINOPHEN TAB 325 MG TAB PO PRN ×2 (16:25→18:01)
[2023-07-18] MEDS: IOPAMIDOL-370 100ML BTL INJ ONE (16:36)
[2023-07-18] MEDS: HEPARIN SODIUM (1,000 UNIT/ML) 1,000 UNIT in SODIUM CHLORIDE 0.9% 1,000 ML IRRIGATION ONE (16:47)
[2023-07-18] MEDS ORDERED: LIDOCAINE 1% INJ 10MG/ML (20 ML MDV) ONE (16:48)
[2023-07-18] MEDS: LIDOCAINE 1% INJ 10MG/ML (20 ML MDV) SQ ONE (16:51)
--- NOTE | 2023-07-18 17:49 | P.EPPROC ---
- EP Procedure Note Electrophysiology Procedure Note: Left upper extremity venogram and cinefluoroscopy Medtronic screw-in atrial lead stable position in the right temporal appendage RV lead screw and in the mid RV septum 15 cc IV dye injected on the left arm Patent left subclavian and axillary venous system Plan If in the future he needs an upgrade to a biventricular pacemaker, he has a patent axillary subclavian venous system on the left side transfer to
--- NOTE | 2023-07-18 17:58 | P.EPPROC ---
- EP Procedure Note Electrophysiology Procedure Note: Diagnosis Persistent atrial fibrillation with RVR Poor rate control despite Toprol-XL 300 mg p.o. daily Symptomatic with tiredness fatigue and nausea Procedure: Medtronic dual-chamber pacemaker interrogation with reprogramming prior to the procedure Cardioversion for atrial fibrillation AV Node Ablation/modification. Medtronic dual-chamber pacemaker interrogation with reprogramming postprocedure Patient was brought to the EP lab in a fasting state. Written, informed consent was obtained prior to the procedure. Access was obtained, sheath placed in right femoral vein. 1. Preprocedure device interrogation and reprogramming Device interrogation with reprogramming performed. Rate responsiveness was turned off and the pacing rate was reprogrammed to a backup mode prior to ablation. Tachycardia detections turned off. Lead impedance is documented, sensing and pacing thresholds performed prior to the procedure Backup pacing, VVI 40 bpm 2. Intracardiac echo performed. Thickened pericardium. Reduced LV systolic function noted Left atrial appendage examined. No intracardiac mass or thrombus 3. Electrical cardioversion A 200 J biphasic shock was used to cardiovert the patient to sinus rhythm Thereafter mapping of the AV node was performed, His bundle identified and RF ablation performed Patient was on therapeutic anticoagulation 4. AV node ablation A Mapping/Ablation catheter was placed and right-sided AV node radiofrequency ablation/modification was performed. RF applied proximal to the His bundle area and just below it Narrow QRS junctional escape rhythm at 40 bpm achieved 5. Device programming postprocedure Post ablation, device reprogramming was performed. Base Pacing rate was programmed to 90 bpm. Patient's device was reprogrammed and the interrogated. RF mode turned on Atrial pacing impedance 304 ohms, P wave 0.8 mV and pacing threshold 0.5 V at point 5 ms RV pacing impedance 342 ohms Pacing threshold 0.75 V 1.5 ms Vascular sheaths were removed at the end of the procedure, hemostasis was assured, the patient was then transferred to recovery room/telemetry in stable condition. Conclusions: Successful ablation of the AV node. Plan: Pacing at 90 bpm for at least 1-2 weeks. Telemetry monitoring for 24-48 hours. Continue anticoagulation. With Eliquis Amiodarone for 3 months Reduce metoprolol succinate to 100 mg p.o. daily at night Restart Diovan at half tablet today and maximize as tolerated Patient tolerated the procedure well without any acute complications
--- NOTE | 2023-07-18 18:00 | P.PN ---
Progress Note - Text Mr. Ward underwent AV node modification successfully with a residual junctional escape rhythm of 40 bpm He also had undergone electrical cardioversion to sinus rhythm He has a chronic dual-chamber pacemaker, Medtronic Plan Reduce metoprolol succinate to 100 mg p.o. daily at night Restart Diovan hydrochlorothiazide initially half tablet daily in the morning and then maximize as tolerated based on blood pressure response Continue Eliquis Start amiodarone 400 mg p.o. daily for 1 month and then reduce to 200 mg p.o. daily for another 2 months The plan is to stop amiodarone completely after 3 to 4 months to see if he maintains sinus rhythm without it
[2023-07-18] MEDS: ACETAMINOPHEN IV (For NPO) 1,000 MG in EMPTY BAG 1 BAG IVPB ONE (18:40)
[2023-07-18] MEDS: SODIUM CHLORIDE 0.9% 1,000 ML IV SCH (18:41)
[2023-07-18] MEDS: ATORVASTATIN 80 MG TAB PO SCH (20:25)
[2023-07-18] MEDS: APIXABAN 5 MG TAB PO SCH (20:25)
[2023-07-18] MEDS: METOPROLOL SUCCINATE (ER) 100 MG TAB.ER.24H PO SCH (20:25)
[2023-07-19] MEDS: PANTOPRAZOLE 40 MG TABLET PO SCH (05:31)
[2023-07-19 08:03] VITALS: BP 118/81; PULSE 91; RESP 20; TEMP 97.6
[2023-07-19] MEDS ORDERED: METOPROLOL SUCCINATE (ER) 100 MG TAB.ER.24H PO SCH (09:00)
[2023-07-19] MEDS: PARoxetine 10 MG TAB PO SCH (09:10)
[2023-07-19] MEDS: VALSARTAN 160 MG TAB PO SCH (09:11)
[2023-07-19] MEDS: MAGNESIUM OXIDE 400 MG TAB PO SCH (09:11)
== END 2023-07-19 11:30 | disposition home or self-care (01) ==
LOC: CATHEP 13:30 → 6NMEDSUR 17:35 → CATHEP 07-19 11:30
PROVIDERS: ATTEND Internal Medicine Clinical Cardiac Electrophysiology
DX: I48.19 Other persistent atrial fibrillation (principal); I25.10 Atherosclerotic heart disease of native coronary artery without angina pectoris; K21.9 Gastro-esophageal reflux disease without esophagitis; I10 Essential (primary) hypertension; E78.5 Hyperlipidemia, unspecified; M19.90 Unspecified osteoarthritis, unspecified site; G47.33 Obstructive sleep apnea (adult) (pediatric); Z79.899 Other long term (current) drug therapy; Z95.0 Presence of cardiac pacemaker; Z98.890 Other specified postprocedural states; Z87.891 Personal history of nicotine dependence; Z80.3 Family history of malignant neoplasm of breast
CPT/HCPCS: 92960; 93650; 86900; 86901; 86850; C1894; C1769 ×2; C1760; C1759; C1893; C1732; J2250; J1644 ×2; J1100; J0690; J2405; J2001; J2704; Q9967; 93662

== ENCOUNTER → 2023-08-01 | Outpatient (CLI) | payer MEDICARE, BC | END | disposition home or self-care (01) | LOC: RADECHMAIN 13:52 | PROVIDERS: ATTEND Internal Medicine Clinical Cardiac Electrophysiology | DX: Z53.9 Procedure and treatment not carried out, unspecified reason (principal) ==

== ENCOUNTER → 2023-08-01 | Outpatient (CLI) | payer MEDICARE, BC ==
--- NOTE | 2023-08-01 14:25 | XR ---
EXAMINATION TYPE: XR chest 2V DATE OF EXAM: 08/01/2023 2:22 PM CLINICAL INDICATION:Male, 77 years old with history of N99.85 R06.02 POST ENDOMETRIAL ABLATION SYNDRO ME; [facility] COMPARISON: Chest radiographs from 01/28/2023. TECHNIQUE: XR chest 2V Frontal and lateral views of the chest. FINDINGS: Lungs/Pleura: Prominent interstitial lung markings are seen scattered throughout the lungs with fina ening of the diaphragm and increased lucency of the lung apices. No evidence of focal consolidation, pneumothorax. Blunting of the costophrenic angles. Pulmonary vascularity: Unremarkable. Heart/mediastinum: Cardiomediastinal silhouette is enlarged and stable. Two lead cardiac conduction d evice overlying the left hemithorax with lead tips projecting over the right ventricle and right atri um. Musculoskeletal: No acute osseous pathology. IMPRESSION: Cardiomegaly and bilateral pleural effusions. Correlate with BNP for congestive heart failure. COPD changes.
== END | disposition home or self-care (01) ==
LOC: RADXRMAIN 14:03
PROVIDERS: ATTEND Internal Medicine Clinical Cardiac Electrophysiology
DX: I51.7 Cardiomegaly (principal); J44.9 Chronic obstructive pulmonary disease, unspecified; R06.02 Shortness of breath
CPT/HCPCS: 71046

== ENCOUNTER → 2023-08-01 | Outpatient (CLI) | payer MEDICARE, BC ==
[2023-08-01 15:50] LABS: Anisocytosis Slight; Basophils % (A) 0 %; Eosinophils # (A) 0.1 k/uL (0-0.7); Eosinophils % (A) 1 %; HCT 40.1 % (39.0-53.0); HGB 12.5 gm/dL (13.0-17.5); Hypochromasia Marked; Lymphocytes # (A) 1.9 k/uL (1.0-4.8); Lymphocytes % (A) 21 %; MCH 25.5 pg (25.0-35.0); MCHC 31.1 g/dL (31.0-37.0); MCV 81.8 fL (80.0-100.0); Mean Platelet Volume 8.7; Monocytes # (A) 0.8 k/uL (0-1.0); Monocytes % (A) 9 %; Neutrophils # (A) 5.9 k/uL (1.3-7.7); Neutrophils % (A) 67 %; Platelet Count 192 k/uL (150-450); Poikilocytosis Slight; RDW 16.9 % (11.5-15.5); WBC 8.8 k/uL (3.8-10.6)
[2023-08-01 16:29] LABS: ALT 36 U/L (4-49); AST 43 U/L (17-59); African American GFR (CKD) 80 (>60 ml/min/1.73 sqM); Albumin 3.9 g/dL (3.5-5.0); Albumin/Globulin Ratio 1.4; Alkaline Phosphatase 125 U/L (38-126); Anion Gap 7 mmol/L; Blood Urea Nitrogen 24 mg/dL (9-20); Carbon Dioxide 29 mmol/L (22-30); Chloride 106 mmol/L (98-107); Globulin 2.7 g/dL; Glucose 112 mg/dL (74-99); Non-African American GFR(CKD) 70 (>60 ml/min/1.73 sqM); Sodium 142 mmol/L (137-145); Total Protein 6.6 g/dL (6.3-8.2)
[2023-08-01 16:31] LABS: Potassium 4.3 mmol/L (3.5-5.1)
== END | disposition home or self-care (01) ==
LOC: LABWHC1 14:22
PROVIDERS: ATTEND Internal Medicine Clinical Cardiac Electrophysiology
DX: I48.19 Other persistent atrial fibrillation (principal); I50.32 Chronic diastolic (congestive) heart failure
CPT/HCPCS: 36415; 80053; 83735; 85025

== ENCOUNTER → 2023-08-10 | Outpatient (CLI) | payer MEDICARE, BC ==
--- NOTE | 2023-08-10 17:44 | P.PN ---
Subjective DATE: 08/10/2023 FOLLOW UP VISIT. Patient with obstructive sleep apnea hypopnea syndrome return to sleep center for follow-up visit. Information from previous visit have been reviewed. Since previous visit patient had bowel resection and colostomy. He developed episodes of atrial fibrillation and in June 2023 had ablation surgery for the heart. Patient has more difficulties with the usage of CPAP now than before. It is difficult for him to breathe through the mask. He is using nasal pillow mask. Patient is taking Ambien 5 mg at bedtime, but still has difficulties to fall asleep and maintaining sleep. [place] sleepiness scale is 2. I checked information from PAP unit. PAP unit pressure 5-10, average 8.2 cm H2O. Usage is 90% and around 50 % for more then 4 hours, average 5 hours per night. Leak is 25 l/m, which is borderline and about at the same range as it was during previous visit. Apnea Hypopnea Index is high 21 per hour, including 12 central apneas per hour. EPR is off. MEDICATIONS:1. Furosemide 20 mg once a day in the morning 2. Paroxetine 10 mg once a day in the morning 3. Atorvastatin 80 mg once a day in the evening 4. Metoprolol 100 mg once a day in the evening 5. Amiodarone 200 mg once a day 6. Omeprazole 20 mg twice a day 7. Eliquis 5 mg twice a day 8. Nitrostat 0.4 mg as needed for chest pain 9. Zolpidem 5 mg as needed for sleep. During physical exam: GENERAL: A pleasant patient without any distress. VITAL SIGNS: BP 129/72, HR 81, RR 20 , weight 169.2, temperature 97.6, oxygen saturation at room air 91 % . HEENT: PERRLA, EOMI.low position of soft palate, Mallapati 3 . NECK: Supple. No JVD. LUNGS: Clear to percussion and to auscultation. Good air exchange. No wheezing or rhonchi. HEART: S1, S2 regular. ABDOMEN: Soft and nontender. Colostomy. EXTREMITIES: No clubbing or cyanosis. [employer]OR: Awake, alert, and oriented x3. No focal deficit. Impressions: 1. Obstructive sleep apnea-hypopnea syndrome. Patient demonstrated good compliance with treatment. Apnea-hypopnea index reading from the machine in high range and include central apneas, which were not present before. 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 2. Episodes of atrial fibrillation, status post cardiac ablation. 3. Coronary artery disease, status post stent insertions. 4. Status post bowel resection, colostomy. 5. Insomnia. 6. Hypertension. 7. Acid reflux. I changed her regimen of AutoPap to the range 5-12 cm of water. I changed EPR from the level 0 to the level 3. Patient tried CPAP unit in the office and his preference to start ramp from the level 5 cm of water instead of level 4 cm of water. Ramp was adjusted to start from 5 cm of water. Plan: 1. Pap titration, possibly patient may need BPAP ST mode unit for corrections of complex sleep apnea. 2. I wrote prescription for Ambien 5 mg one if necessary 2 tablets at bedtime. 3. Continue using PAP equipment every night for the whole night. 4. Advised patient to remove all remaining water from humidifier canister daily and make it dry after each usage. Refill canister with fresh distilled water before each usage. 5. Sleep hygiene with regular time in bed for at least 8 hours. 6. Precautions related to driving. No driving if feel any sleepiness. 7. I will maintain prescription for PAP supplies including mask, tube, filters. 8. Follow up visit after titration. 9. Watching weight. Thank you very much for allowing me to participate in the management of your patient. lAirio Wilson MD, PhD, FAASM. Diplomat of [place] Board of Sleep Medicine, Sleep Medicine Board by [place] Board of Internal Medicine [employer] Operator of [facility] [place]
== END ==
LOC: 3 N SLEEP 15:57
PROVIDERS: ATTEND Internal Medicine
DX: G47.33 Obstructive sleep apnea (adult) (pediatric) (principal); G47.00 Insomnia, unspecified; G47.31 Primary central sleep apnea; I10 Essential (primary) hypertension; I25.10 Atherosclerotic heart disease of native coronary artery without angina pectoris; I48.91 Unspecified atrial fibrillation; K21.9 Gastro-esophageal reflux disease without esophagitis; Z95.5 Presence of coronary angioplasty implant and graft; Z99.89 Dependence on other enabling machines and devices; Z79.01 Long term (current) use of anticoagulants; Z79.899 Other long term (current) drug therapy; Z87.891 Personal history of nicotine dependence
CPT/HCPCS: 99212

== ENCOUNTER 2023-08-16 19:51 | Outpatient (CLI) | payer MEDICARE, BC ==
--- NOTE | 2023-08-17 16:24 | P.PCN ---
Description of Procedure: CLINICAL: Titration with positive air pressure has been done for correction of respiratory abnormalities during sleep. DESCRIPTION OF PROCEDURE: The standard montage for clinical polysomnography included the electroencephalogram, the electrocardiogram, the mentalis surface electromyography and Lead II cardiography. The respiratory battery consisted of measurements of nasal /buccal air flow, pressure transducer measurements from the nose, thoracic and /or abdominal effort and intercostal surface electromyography. Video monitoring has been done to check for any parasomnia events. Nocturnal oxyhemoglobin saturations were obtained by finger oximetry. Step-dorantes titration with positive airway pressure was utilized to control respiratory events. Raw data of sleep recording has been reviewed and is adequate. RESULTS: Sleep efficiency was extremely short 41.7 %. Latency to sleep onset was prolonged to 38.5 minutes.]. Sleep architecture showed stage N1 was significantly increased to 22.6 %, Delta sleep was absent 0 %, REM sleep was decreased to 11.6 %. Heart rate was minimum 67 BPM, maximum 76 BPM, average 72 BPM. EMG showed 84.1 periodic limb movements per hour with 0.7 micriarousals per hour. PAP titration have been done with CPAP up to the pressure 13 cm H2O. Patient had problems with CPAP, switched to BPAP. BPAP titrated up to 16/12 cm of water . Patient continued to have abnormalities of respiration on CPAP and BPAP. Patient was tried on BiPAP ST mode with the pressure 16/12 and respiratory rate 12. IMPRESSION: 1. 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 2. Severe periodic limb movements have been documented. Please see other impressions from consultation. PLAN: 1. Patient will start treatment with BiPAP in ST mode. 2. Watching weight. 3. Sleep hygiene with regular time in bed for at least 8 hours. 4. No driving if feeling any sleepiness. 5. I will see the patient for follow up visit to explain the results of the test, recommendations, check compliance with treatment and make any necessary adjustment related to mask fitting, pressure and humidification. 6. Please check iron profile including ferritin level. Low level of iron may increase risk for periodic limb movements Thank you very much for allowing me to participate in the management of your patient. Sincerely, Alirio Wilson MD, PhD, FAASM Diplomat of [place] [employer] Sleep Medicine Board of [place] [employer] Operator of [facility]
== END 2023-08-17 05:35 | disposition home or self-care (01) ==
LOC: 3 N SLEEP 19:51
PROVIDERS: ATTEND Internal Medicine
DX: G47.33 Obstructive sleep apnea (adult) (pediatric) (principal); G47.31 Primary central sleep apnea; G47.61 Periodic limb movement disorder; Z87.891 Personal history of nicotine dependence
CPT/HCPCS: 95811

== ENCOUNTER 2023-09-27 19:46 | Outpatient (CLI) | payer MEDICARE, BC ==
[2023-09-28 06:39] VITALS: BP 105/63; TEMP 98.1
--- NOTE | 2023-09-28 15:38 | P.PCN ---
Description of Procedure: POLYSOMNOGRAPHY REPORT PROCEDURE(S)/DATE(S): Polysomnography 09/27/2023 CLINICAL: Patient has been seen in the sleep center for evaluation of obstructive sleep apnea-hypopnea syndrome. Please see my consultation. Sleep study has been done for evaluation of patient breathing during the sleep. PROCEDURE: The standard montage for clinical polysomnography included the electroencephalogram, the electrooculogram, the mentalis surface electromyography and Lead II cardiography. The respiratory battery consisted of measurements of nasal/buccal air flow, pressure transducer measurements from nose, thoracic and/or abdominal effort and intercostal surface electromyography. Video monitoring has been done to check for any parasomnia events. Nocturnal oxyhemoglobin saturations were obtained by finger oximetry. Step-dorantes titration with positive airway pressure was utilized to control the respiratory events, if necessary. RESULTS: During the diagnostic sleep study sleep efficiency was decreased to 73.1%. Latency to sleep onset was prolonged to 31.0 min. Sleep architecture showed stage NI was normal 5.7%, Delta sleep was absent 0%, REM sleep was significantly increased to 37.7%. Respiratory channel showed 0 obstructive apneas, 2 mixed apneas, 0 central apneas, 43 hypopneas with lowest oxygen level 85%. Total apnea hypopnea index was 6.8. Heart rate was in the range between 59 and 63, average 60. EMG showed 149.1 periodic limb movements per hour with 0.2 micro-arousals per hour. IMPRESSIONS: 1. Obstructive sleep apnea hypopnea syndrome. 2. Extremely severe periodic limb movements have been documented, but without significant amount of related microarousal's. Please see other impressions from consultation PLAN: 1. I will see patient for follow-up visit to explain results of the test and recommendations. 2. Losing weight program. 3. Sleep hygiene with regular time in bed for at least 7-1/2 hours. 4. No driving if feeling sleepiness. 5. Please check iron profile including ferritin level. Low level of iron may increase the risk for periodic limb movements. Thank you very much for allowing me to participate in the management of your patient. Sincerely, Alirio Wilson MD, PhD, FAASM. Diplomat of [place] [employer], Sleep Medicine Board by [place] [employer] Director Title of [facility] [place] But the scoring of
== END 2023-09-28 05:48 | disposition home or self-care (01) ==
LOC: 3 N SLEEP 19:46
PROVIDERS: ATTEND Internal Medicine
DX: G47.33 Obstructive sleep apnea (adult) (pediatric) (principal); G47.31 Primary central sleep apnea; G47.61 Periodic limb movement disorder; Z87.891 Personal history of nicotine dependence
CPT/HCPCS: 95810

== ENCOUNTER → 2023-12-04 | Outpatient (CLI) | payer MEDICARE, BC ==
--- NOTE | 2023-12-04 13:08 | FL ---
EXAMINATION TYPE: FL barium enema DATE OF EXAM: 12/04/2023 8:50 AM CLINICAL INDICATION:Male, 78 years old with history of Z48.89 postoperative visit; COMPARISON: None TECHNIQUE: The procedure was explained and patient history elicited. All patient questions were answ ered prior to beginning. Multiple spot fluoroscopic images of the colon were obtained after the recta l administration of liquid barium as the contrast agent. Multiple postprocedural overhead images, w ere obtained and reviewed. Fluoroscopic time: 54 seconds Fluoroscopic images: 0 Radiographs taken: 14 DAP: Not reported [id number] FINDINGS: The salvation army officer abdominal radiograph demonstrates a normal bowel gas pattern without dilated loo ps of small or large bowel. There is no evidence for organomegaly or pneumoperitoneum. No abnormal calcifications. The visualized osseous structures are intact. Free flow of contrast from the rectum to the splenic flexure. Suspected anastomotic site near the stacy cending colon/sigmoid colon projecting over the left sacrum. The colon demonstrates postsurgical cou rse and contour without evidence of internal filling defects. Few scattered colonic diverticula. IMPRESSION: 1. Limited evaluation of the left colon for anastomotic stricture. Mild caliber change at the area of suspected anastomosis at the descending colon/sigmoid colon. There is free flow contrast from the re ctum to the splenic flexure. 2. Colonic diverticulosis.
== END | disposition home or self-care (01) ==
LOC: RADFLMAIN 07:30
PROVIDERS: ATTEND Surgery
DX: Z48.89 Encounter for other specified surgical aftercare (principal); K52.9 Noninfective gastroenteritis and colitis, unspecified; K56.699 Other intestinal obstruction unspecified as to partial versus complete obstruction; K57.30 Diverticulosis of large intestine without perforation or abscess without bleeding
CPT/HCPCS: 74270

== ENCOUNTER 2024-02-20 14:44 | Day surgery (SDC) | payer MEDICARE, BC ==
[2024-02-20 15:01] VITALS: BP 163/74; PULSE 70; RESP 18
[2024-02-20] MEDS: SODIUM CHLORIDE 0.9% 1,000 ML IV SCH (15:01)
[2024-02-20] MEDS: IV FLUID CONTINUATION 1,000 ML IV ONE (15:02)
[2024-02-20] MEDS: IOPAMIDOL-370 100ML BTL IVP ONE (17:37)
--- NOTE | 2024-02-20 18:01 | P.EPPROC ---
- EP Procedure Note Electrophysiology Procedure Note: Diagnosis Complete heart block Global cardiomyopathy, ejection fraction 45% CHF class II Persistent atrial fibrillation, maintaining sinus rhythm on amiodarone p.o. 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 Procedure 1 Cinefluoroscopy of the leads showed an atrial lead in the right atrial appendage and an RV lead in the RV septum No fractures or breaks noted Pacemaker was interrogated Atrial impedance 380 ohms, P waves 2.4 mV and pacing threshold 1.5 V at 0.4 ms RV pacing impedance 418 ohms, pacing threshold 0.5 V at 0.4 ms Patient is pacemaker dependent SureWaves Irene XT DR MRI device Left upper extremity venogram performed with a 10 cc IV dye Patent left subclavian venous system Plan upgrade to a biventricular pacemaker for management of pacemaker mediated cardiomyopathy and congestive heart failure Reduce amiodarone dose to 100 mg p.o. daily Continue all other medications
== END 2024-02-20 18:01 | disposition home or self-care (01) ==
LOC: CATHEP 14:44
PROVIDERS: ATTEND Internal Medicine Clinical Cardiac Electrophysiology
DX: I44.2 Atrioventricular block, complete (principal); I42.9 Cardiomyopathy, unspecified; I48.19 Other persistent atrial fibrillation; I50.9 Heart failure, unspecified; I49.5 Sick sinus syndrome; I48.91 Unspecified atrial fibrillation; I10 Essential (primary) hypertension; E78.5 Hyperlipidemia, unspecified; F17.210 Nicotine dependence, cigarettes, uncomplicated; Z95.0 Presence of cardiac pacemaker; Z82.49 Family history of ischemic heart disease and other diseases of the circulatory system; Z79.02 Long term (current) use of antithrombotics/antiplatelets; Z79.899 Other long term (current) drug therapy
CPT/HCPCS: 36005; 75820

== ENCOUNTER → 2024-03-28 | Outpatient (CLI) | payer MEDICARE, BC ==
[2024-03-28 14:56] LABS: HCT 46.9 % (39.6-50.0); HGB 15.1 g/dL (13.0-17.0); MCH 28.3 pg (27.0-32.0); MCHC 32.2 g/dL (32.0-37.0); Mean Platelet Volume 10.3 FL (9.5-12.2); NRBC Per 100 WBC 0 X 10*3/uL (0.00-0.01); Platelet Count 214 X 10*3/uL (140-440); RBC 5.33 X 10*6/uL (4.40-5.60); RDW 16.2 % (11.5-14.5); WBC 8.73 X 10*3/uL (4.50-10.00)
[2024-03-28 15:06] LABS: Blood Urea Nitrogen 13.8 mg/dL (9.0-27.0); Carbon Dioxide 28.3 mmol/L (21.6-31.8); Chloride 102 mmol/L (96-109); Potassium 4.6 mmol/L (3.5-5.5); Sodium 142 mmol/L (135-145)
== END | disposition home or self-care (01) ==
LOC: LABWHC1 11:28
PROVIDERS: ATTEND Internal Medicine Clinical Cardiac Electrophysiology
CPT/HCPCS: 36415; 80051; 82565; 84520; 85027

== ENCOUNTER → 2024-03-28 | Outpatient (CLI) | payer MEDICARE, BC ==
[2024-03-28 11:05] VITALS: BP 134/79; PULSE 74; RESP 16; TEMP 98.1
--- NOTE | 2024-03-28 11:57 | P.PROGSL ---
Subjective DATE: [] FOLLOW UP VISIT. Patient with obstructive sleep apnea hypopnea syndrome return to sleep center for follow-up visit. Information from previous visit have been reviewed. This is first visit after patient received new CPAP unit Patient is using PAP equipment every night for the whole night, getting PAP supplies in time. The patient does not have significant problems with the mask, PAP unit and humidification. [place] sleepiness scale is 1, which is perfect. I checked information from PAP unit. PAP unit pressure 5-13, average 8.2 cm H2O. Usage is 100% for more then 4 hours, average 9 hours per night. Leak is 24.0 l/m, which is in acceptable range. Apnea Hypopnea Index is 1.3, which is normal. On treatment with Ambien 5 to 10 mg at bedtime no problems with falling asleep, no side effects. MEDICATIONS have been reviewed, please see below. During physical exam: GENERAL: A pleasant patient without any distress. VITAL SIGNS: Please see below, weight is 172.4 lbs. HEENT: PERRLA, EOMI.low position of soft palate, Mallapati 3. NECK: Supple. No JVD. LUNGS: Clear to percussion and to auscultation. Good air exchange. No wheezing or rhonchi. HEART: S1, S2 regular. ABDOMEN: Soft and nontender.[] EXTREMITIES: No clubbing or cyanosis. MARKETING ACCOUNT MANAGER: Awake, alert, and oriented x3. No focal deficit. Impressions: 1. Obstructive sleep apnea-hypopnea syndrome. Patient demonstrated great compliance with treatment, benefiting from treatment. Normal respiration on new AutoPap unit. 2. Coronary artery disease, status post stent insertion. 3. Episodes of atrial fibrillation, status post cardiac ablation. 4. Status post bowel resection, colostomy. 5. Insomnia. 6. Hypertension. 7. Acid reflux. Plan: 1. Continue using PAP equipment every night for the whole night. 2. Sleep hygiene with regular time in bed for at least 7.5-8 hours 3. PAP unit should stay lower then position of the head. 4. Advised patient to remove all remaining water from humidifier canister daily and make it dry after each usage. Refill canister with fresh distilled water before each usage. 5. Watching weight. 6. Precautions related to driving. No driving if feel any sleepiness. 7. I will maintain prescription for PAP supplies including mask, tube, filters. 8. Follow up visit in 6 months or earlier if patient has any problems. 9. Patient will continue Ambien 5 to 10 mg at bedtime as needed for difficulties to initiate sleep. Thank you very much for allowing me to participate in the management of your patient. Alirio Wilson MD, PhD, FAASM. Diplomat of [place] [employer], Sleep Medicine Board by [place] [employer] Information Specialist of [facility] [place] cc: Andres Johnston MD Objective - Vital Signs Vital Signs: Vital Signs Temp 98.1 F 03/28/24 11:02 Pulse 74 03/28/24 11:02 Resp 16 03/28/24 11:02 BP 134/79 03/28/24 11:02 Pulse Ox 98 03/28/24 11:02 FiO2 Intake & Output 03/27/24 03/28/24 03/28/24 18:59 06:59 18:59 Weight 78.131 kg Home Medications: Home Medications Medication Instructions Recorded Confirmed Type Apixaban [Eliquis] 5 mg PO BID 03/23/16 02/20/24 History Nitroglycerin Sl Tabs [Nitrostat] 0.4 mg SUBLINGUAL Q5M PRN 03/23/16 02/20/24 History Omeprazole [PriLOSEC] 20 mg PO AC-BID 03/23/16 02/20/24 History Atorvastatin [Lipitor] 80 mg PO HS 01/25/23 02/20/24 History Cholecalciferol [Vitamin D3 (25 25 mcg PO DAILY 01/25/23 02/20/24 History Mcg = 1000 Iu)] Ubidecarenone [Coenzyme Q10] 200 mg PO DAILY 01/25/23 02/20/24 History Magnesium 400 mg PO DAILY 07/13/23 02/20/24 History PARoxetine [Paxil] 10 mg PO DAILY 07/13/23 02/20/24 History Metoprolol Succinate [Toprol XL] 100 mg PO DAILY #90 tab 07/18/23 02/20/24 Rx Furosemide [Lasix] 20 mg PO DAILY 02/16/24 02/20/24 History Potassium Citrate 99 mg PO DAILY 02/16/24 02/20/24 History Zolpidem [Ambien] 5 mg PO HS PRN 08/30/24 09/03/24 History Amiodarone [Cordarone] 100 mg PO DAILY #50 tab 02/20/24 Rx
== END | disposition home or self-care (01) ==
LOC: 3 N SLEEP 10:42
PROVIDERS: ATTEND Internal Medicine
CPT/HCPCS: 99212

== ENCOUNTER 2024-04-04 12:46 | Day surgery (SDC) | payer MEDICARE, BC ==
[2024-04-03 08:52] VITALS: BMI 25.1
[~2024-04-04 12:46] MED LIST changes: -ACETAMINOPHEN TAB 500 MG TAB PO PRN; -MELOXICAM 7.5 MG TAB PO PRN; -MIDAZOLAM 2 MG/2 ML VIAL IV PRN; -ONDANSETRON 4 MG/2 ML VIAL IVP PRN; -TRANEXAMIC 1,000 MG/100ML-NACL 1,000 MG in SALINE 1 100ML.BAG IVPB PRN; +ceFAZolin 1 GM in SODIUM CHLORIDE 0.9% IRRIG BTL 250 ML IRRIGATION PRN
[2024-04-04] MEDS: SODIUM CHLORIDE 0.9% 1,000 ML IV SCH ×2 (13:11→13:14)
[2024-04-04] MEDS: IV FLUID CONTINUATION 1,000 ML IV ONE (13:15)
[2024-04-04] MEDS: ONDANSETRON 4 MG/2 ML VIAL IVP STA (13:55)
[2024-04-04] MEDS ORDERED: fentaNYL (PF) 50 MCG/ML 2 ML AMP ONE (15:41)
[2024-04-04] MEDS ORDERED: MIDAZOLAM 2 MG/2 ML VIAL ONE (15:41)
[2024-04-04] MEDS ORDERED: PROPOFOL 10 MG/ML 20 ML VIAL IV ONE (15:41)
[2024-04-04] MEDS ORDERED: ZOLPIDEM 5 MG TAB PO PRN (15:59)
[2024-04-04] MEDS: VANCOMYCIN 1,250 MG in SODIUM CHLORIDE 0.9% 250 ML IVPB ONE (16:26)
[2024-04-04] MEDS: LIDOCAINE 1%-EPI 1:100,000 20 ML VIAL SQ ONE (16:51)
[2024-04-04] MEDS: ROPIVACAINE 5 MG/ML 30 ML VIAL MISCELLANE ONE (16:52)
--- NOTE | 2024-04-04 18:04 | P.EPPROC ---
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 Written informed consent was obtained prior to the procedure. Conscious sedation provided by anesthesia team IV antibiotics administered. Local anesthesia administered. A 4 cm incision made in the pectoral area. Subfascial pocket made. Partial capsulectomy performed. Venous access obtained. Venous sheaths placed. A His bundle sheath was prepped. A coronary sinus decapolar catheter was placed within this sheath. The catheter along with the sheath was then passed into the right heart, the catheter was prolapsed across the tricuspid valve, into the right ventricle and then further into the right ventricular outflow tract across the pulmonic valve into the pulmonary artery. This sheath was slid over this decapolar catheter into the RVOT. Thereafter the catheter last sheath assembly was withdrawn from the RVOT along the septum to the mid septal area. The sheath was appropriately to to map the right ventricular aspect of the septum. The decapolar catheter was withdrawn, the sheath flushed again and the screw-in pacing lead placed within the sheath. Further detailed unipolar pace-mapping of the septum was performed and once the appropriate based morphology was obtained on lead V1, the lead was screwed into the septum. The lead was screwed in 4-5 returns at a time while monitoring the current of injury, the pacing impedance changes and the paced QRS morphology. The stimulus to peak of V6 QRS was measured at each step. Once a QR or rSR pattern of paced QRS in lead V1 was obtained, a left bundle signal was sought. Impedance was measured and thresholds were measured. An impedance drop of 100-200 ohms but above 550 ohms was targeted along with an unchanged vector of the current of injury signal. The final positioning was based on the QRS morphology in lead V1 and a short stimulus to peak of the V6 QR S of less than 90 ms. The sheath was withdrawn, stability of the pacing lead deep in the septum was confirmed on CUI and ESTONIAN views and the sheath was slipped and an adequate heel was provided for the lead. Unipolar and bipolar electrogram morphology obtained Chronic atrial lead position the right atrial appendage. Medtronic model 4076, 45 cm in length chronically implanted in the right atrial appendage P waves 2.8 mV, pacing impedance 380 ohms and pacing threshold 0.8 V at 0.4 ms. Stable lead function and parameters Chronic RV lead position in the RV anterior septum. Medtronic model #4076, 52 cm in length, pacing impedance 418 ohms and pacing threshold 0.8 V at 0.4 ms. Stable lead function parameters Left bundle lead placed successfully, model #3830 Medtronic, 69 cm in length Unipolar pacing impedance 855 ohms, pacing threshold 0.5 V at 0.4 ms Unipolar paced QRS morphology = rSR', QRS width 155 ms Stimulus-peak of V6 equals 76 ms Lead secured to the underlying pectoralis muscle Pocket irrigated with antibiotic solution. Antibiotic pouch placed Biventricular pacemaker device connected to the leads and placed in the subfascial pocket. Old dual-chamber pacemaker explanted Patient tolerated the procedure well without acute complications Programming DDDR 60-130 bpm LV RV offset of 80 ms
--- NOTE | 2024-04-04 18:06 | P.PRLE ---
RE: Ryan Ward Dear Andres Mr. Ward underwent upgrade to a biventricular pacemaker with left bundle pacing successfully He will continue all his current medications unchanged Thank you for entrusting me with the care of the patient Warm regards Sincerely Gareth Mo
[2024-04-04] MEDS: PANTOPRAZOLE 40 MG TABLET PO SCH (18:44)
[2024-04-04] MEDS: APIXABAN 5 MG TAB PO SCH (20:24)
[2024-04-04] MEDS: FUROSEMIDE 40 MG TAB PO SCH (20:24)
[2024-04-04] MEDS: METOPROLOL SUCCINATE (ER) 100 MG TAB.ER.24H PO SCH (20:24)
[2024-04-04] MEDS: ATORVASTATIN 80 MG TAB PO SCH (20:24)
[2024-04-05 00:04] VITALS: PULSE 60; RESP 17
--- NOTE | 2024-04-05 07:33 | XR ---
EXAMINATION TYPE: XR chest 2V DATE OF EXAM: 04/05/2024 7:01 AM CLINICAL INDICATION: Male, 78 years old with history of Lead placement check; [facility] COMPARISON: Chest radiographs from 08/01/2023 TECHNIQUE: XR chest 2V Frontal view of the chest. FINDINGS: Lungs/Pleura: There is no evidence of pleural effusion, focal consolidation, or pneumothorax. Pulmonary vascularity: Pulmonary vascular congestion. Heart/mediastinum: Cardiomediastinal silhouette is enlarged. Three lead cardiac conduction device ove rlying the left hemithorax with lead tips projecting over the right ventricle, right atrium and coron gabi sinus. Musculoskeletal: No acute osseous pathology. IMPRESSION: 1. Conduction leads in satisfactory position. 2. Cardiomegaly and mild basilar pulmonary vascular congestion. Correlate with BNP for congestive he art failure. [facility], , 04/05/2024 7:30 AM
--- NOTE | 2024-04-05 08:13 | P.DS ---
Providers Attending physician: Gareth Mo Primary care physician: Andres [facility] Course: Patient is doing well. Mild tenderness but without any swelling or hematoma in the left pectoral area Heart sounds are normal Rhythm is regular, paced rhythm Chest x-ray within normal limits. Left bundle pacing lead in stable position Blood pressure 113/65 mmHg afebrile Heart sounds S1-S2 normal Breath sounds are clear Impression Chronic systolic congestive heart failure class II with reduced LV systolic function ejection fraction 45% secondary to 100% RV pacing, pacemaker dependency status post AV node ablation Yesterday he underwent upgrade to a left bundle pacing lead with implantation of a biventricular pacemaker and removal of a dual-chamber pacemaker generator He is doing well Plan Hold Eliquis for 24 hours resume tomorrow morning 1 dose of p.o. Lasix May go home if device interrogation is within normal limits Follow-up in the device clinic in a week Plan - Discharge Summary Discharge Rx Participant: No New Discharge Prescriptions: Continue RX: Nitroglycerin Sl Tabs [Nitrostat] 0.4 mg SUBLINGUAL Q5M PRN PRN Reason: Chest Pain RX: Apixaban [Eliquis] 5 mg PO BID RX: Omeprazole [PriLOSEC] 20 mg PO AC-BID RX: Ubidecarenone [Coenzyme Q10] 200 mg PO DAILY RX: Cholecalciferol [Vitamin D3 (25 Mcg = 1000 Iu)] 50 mcg PO DAILY RX: Atorvastatin [Lipitor] 80 mg PO HS RX: PARoxetine [Paxil] 10 mg PO DAILY RX: Amiodarone [Cordarone] 100 mg PO DAILY #50 tab RX: Metoprolol Succinate [Toprol XL] 100 mg PO HS RX: Magnesium 400 mg PO DAILY RX: Zolpidem [Ambien] 5 mg PO HS PRN PRN Reason: Insomnia RX: Potassium Citrate 99 mg PO DAILY RX: Furosemide [Lasix] 20 mg PO DAILY Discharge Medication List RX: Apixaban [Eliquis] 5 mg PO BID 03/23/16 [History] RX: Nitroglycerin Sl Tabs [Nitrostat] 0.4 mg SUBLINGUAL Q5M PRN 03/23/16 [History] RX: Omeprazole [PriLOSEC] 20 mg PO AC-BID 03/23/16 [History] RX: Atorvastatin [Lipitor] 80 mg PO HS 01/25/23 [History] RX: Cholecalciferol [Vitamin D3 (25 Mcg = 1000 Iu)] 50 mcg PO DAILY 01/25/23 [History] RX: Ubidecarenone [Coenzyme Q10] 200 mg PO DAILY 01/25/23 [History] RX: Magnesium 400 mg PO DAILY 07/13/23 [History] RX: PARoxetine [Paxil] 10 mg PO DAILY 07/13/23 [History] RX: Furosemide [Lasix] 20 mg PO DAILY 02/16/24 [History] RX: Potassium Citrate 99 mg PO DAILY 02/16/24 [History] RX: Zolpidem [Ambien] 5 mg PO HS PRN 02/16/24 [History] RX: Amiodarone [Cordarone] 100 mg PO DAILY #50 tab 02/20/24 [Rx] RX: Metoprolol Succinate [Toprol XL] 100 mg PO HS 04/04/24 [History] Follow up Appointment(s)/Referral(s): Gareth Mo MD [STAFF PHYSICIAN] - 04/11/24 3:30 pm (Appointment is at the Device Clinic located at Cardiology Main Office on [address] ) Patient Instructions/Handouts: Moderate Sedation (DC), Pacemaker (DC)
[2024-04-05 08:16] VITALS: BP 125/65; TEMP 97.8
[2024-04-05] MEDS: ACETAMINOPHEN TAB 325 MG TAB PO PRN (08:34)
[2024-04-05] MEDS: AMIODARONE 100 MG TAB PO SCH (08:34)
[2024-04-05] MEDS: FUROSEMIDE 40 MG TAB PO STA (08:34)
[2024-04-05] MEDS ORDERED: AMIODARONE 200 MG TAB PO SCH (09:00)
== END 2024-04-05 11:30 ==
LOC: CATHEP 12:46 → 6NMEDSUR 17:35 → CATHEP 04-05 11:30
PROVIDERS: ATTEND Internal Medicine Clinical Cardiac Electrophysiology
CPT/HCPCS: 33225; 33229; 71046

== ENCOUNTER → 2024-09-16 | Outpatient (CLI) | payer MEDICARE, BC ==
[2024-09-16 17:22] LABS: African American GFR (CKD) 86 (>60 ml/min/1.73 sqM); Blood Urea Nitrogen 20 mg/dL (9-20); Non-African American GFR(CKD) 74 (>60 ml/min/1.73 sqM)
--- NOTE | 2024-09-16 18:30 | CT ---
EXAMINATION TYPE: CT brain wo/w con DATE OF EXAM: 09/16/2024 6:13 PM COMPARISON: 03/28/2020.. CLINICAL INDICATION: Male, 79 years old with history of R51.9 HEADACHE; Pt stated he had a sharp like pain and a bad headache for some time that has now gone away. TECHNIQUE: Axial CT images were obtained with coronal and sagittal reformats created and reviewed. Contrast used:100ml mL of Isovue 300 with IV Contrast, Oral contrast used: none. CT DLP: 2357 mGycm, Automated exposure control for dose reduction was used. FINDINGS: Extra-axial spaces: No abnormal extra-axial fluid collections. Ventricular system: Dilatation in proportion to cerebral atrophy. Cerebral parenchyma: Cerebral atrophy. No acute intraparenchymal hemorrhage or mass effect. The yepez -white junction is well differentiated. No abnormal enhancement is seen after the administration of i ntravenous contrast. Cerebellum: Unremarkable. Mass effect: No evidence of midline shift. Intracranial vasculature: Atherosclerotic calcifications of the intracranial vessels. Visualized binta rial vasculature demonstrates no evidence for occlusion or aneurysmal dilation. Soft tissues: Normal. Calvarium/osseous structures: No depressed skull fracture. Paranasal sinuses and mastoid air cells: Clear. Visualized orbits: Orbital contents are intact. IMPRESSION: 1. No acute intracranial process and no evidence to suggest intracranial mass. 2. Nonspecific white matter changes, likely secondary to chronic small vessel ischemic disease. [facility], , 09/16/2024 6:28 PM
== END | disposition home or self-care (01) ==
LOC: RADCTMAIN 16:31
PROVIDERS: ATTEND Internal Medicine
DX: R51.9 Headache, unspecified (principal); R90.82 White matter disease, unspecified
CPT/HCPCS: 82565; 84520; 70470; 36415; Q9967

== ENCOUNTER → 2024-09-19 | Outpatient (CLI) | payer MEDICARE, BC ==
[2024-09-19 11:31] VITALS: BP 105/68; PULSE 78; RESP 16; TEMP 97.9
--- NOTE | 2024-09-19 11:46 | P.PROGSL ---
Subjective DATE: 09/19/2024 FOLLOW UP VISIT. Patient with obstructive sleep apnea hypopnea syndrome return to sleep center for follow-up visit. Information from previous visit have been reviewed. Patient is using PAP equipment every night for the whole night, getting PAP supplies in time. The patient does not have significant problems with the mask, PAP unit and humidification. [place] sleepiness scale is 1, which is normal. I checked information from PAP unit. PAP unit pressure 5-13, average 9.8 cm H2O. Usage is 100% for more then 4 hours, average 7.8 hours per night. Leak is 25 l/m, which is in acceptable range. Apnea Hypopnea Index is 1.3, which is normal. MEDICATIONS have been reviewed, please see below. During physical exam: GENERAL: A pleasant patient without any distress. VITAL SIGNS: Please see below, weight is 181 lbs. HEENT: PERRLA, EOMI.low position of soft palate, Mallapati 3 . NECK: Supple. No JVD. LUNGS: Clear to percussion and to auscultation. Good air exchange. No wheezing or rhonchi. HEART: S1, S2 regular. ABDOMEN: Soft and nontender.[] EXTREMITIES: No clubbing or cyanosis. MANAGER OF HUMAN RESOURCES: Awake, alert, and oriented x3. No focal deficit. Impressions: 1. Obstructive sleep apnea-hypopnea syndrome. Patient demonstrated great compliance with treatment, benefiting from treatment. 2. Coronary artery disease, status post stent insertion. 3. History of episodes of atrial fibrillation, status post cardiac ablation. 4. Status post bowel resection, colostomy. 5. Insomnia. 6. Acid reflux. 7. Hypertension. Plan: 1. Continue using PAP equipment every night for the whole night. 2. Sleep hygiene with regular time in bed for at least 7.5-8 hours 3. PAP unit should stay lower then position of the head. 4. Advised patient to remove all remaining water from humidifier canister daily and make it dry after each usage. Refill canister with fresh distilled water before each usage. 5. Watching weight. 6. Precautions related to driving. No driving if feel any sleepiness. 7. I will maintain prescription for PAP supplies including mask, tube, filters. 8. Follow up visit in 8 months or earlier if patient has any problems. Thank you very much for allowing me to participate in the management of your patient. lAirio Wilson MD, PhD, FAASM. Diplomat of [place] [employer], Sleep Medicine Board by [place] [employer] [place] Site Coordinator of [facility] [place] Objective - Vital Signs Vital Signs: Vital Signs Temp 97.9 F 09/19/24 11:30 Pulse 78 09/19/24 11:30 Resp 16 09/19/24 11:30 BP 105/68 09/19/24 11:30 Pulse Ox 95 09/19/24 11:30 FiO2 Intake & Output 09/18/24 09/19/24 09/19/24 18:59 06:59 18:59 Weight 82.1 kg Home Medications: Home Medications Medication Instructions Recorded Confirmed Type Apixaban [Eliquis] 5 mg PO BID 03/23/16 09/19/24 History Nitroglycerin Sl Tabs [Nitrostat] 0.4 mg SUBLINGUAL Q5M PRN 03/23/16 09/19/24 History Omeprazole [PriLOSEC] 20 mg PO AC-BID 03/23/16 09/19/24 History Atorvastatin [Lipitor] 80 mg PO HS 01/25/23 09/19/24 History Cholecalciferol [Vitamin D3 (25 50 mcg PO DAILY 01/25/23 09/19/24 History Mcg = 1000 Iu)] Ubidecarenone [Coenzyme Q10] 200 mg PO DAILY 01/25/23 04/04/24 History Magnesium 400 mg PO DAILY 07/13/23 09/19/24 History PARoxetine [Paxil] 10 mg PO DAILY 07/13/23 09/19/24 History Furosemide [Lasix] 20 mg PO DAILY 02/16/24 09/19/24 History Potassium Citrate 99 mg PO DAILY 02/16/24 09/19/24 History Zolpidem [Ambien] 5 mg PO HS PRN 02/16/24 04/04/24 History Amiodarone [Cordarone] 100 mg PO DAILY #50 tab 02/20/24 09/19/24 Rx Metoprolol Succinate [Toprol XL] 100 mg PO HS 04/04/24 09/19/24 History
== END ==
LOC: 3 N SLEEP 11:18
PROVIDERS: ATTEND Internal Medicine
DX: G47.33 Obstructive sleep apnea (adult) (pediatric) (principal); I10 Essential (primary) hypertension; I25.10 Atherosclerotic heart disease of native coronary artery without angina pectoris; K21.9 Gastro-esophageal reflux disease without esophagitis; Z90.49 Acquired absence of other specified parts of digestive tract; Z86.79 Personal history of other diseases of the circulatory system; Z98.890 Other specified postprocedural states; Z98.61 Coronary angioplasty status; Z87.891 Personal history of nicotine dependence
CPT/HCPCS: 99212